=== PATIENT | female | born 1940 | race Caucasian/White ===

== ENCOUNTER → 2018-06-01 11:43 | Outpatient (CLI) | payer OTHER, MEDICAID, SELFPAY ==
[2018-06-01 14:03] LABS: Hemoglobin A1C 8.2 % (4.5-6.2)
== END ==
PROVIDERS: PCP Family Medicine; Visit Provider Family Medicine
DX: E11.9 Type 2 diabetes mellitus without complications (principal)
CPT/HCPCS: 36415; 83036

== ENCOUNTER 2018-07-28 14:50 | Emergency (ER) | payer OTHER, MEDICAID, SELFPAY ==
[2018-07-28 14:54] VITALS: BP 158/55; PULSE 70; RESP 16; TEMP 36.6; O2SAT 97
--- NOTE | 2018-07-28 15:08 | DI.CT_ITS ---
SYMPTOM/DIAGNOSIS: RUQ ABD PAIN, DIARRHEA ABDOMEN AND PELVIC CT: A noncontrast CT scan of the abdomen and pelvis was performed. Lack of IV contrast does limit evaluation of the abdominal and pelvic organs. FINDINGS: Loculated fluid collections are seen in the right hemithorax. There were discussed on the CT scan of the chest from the same day. The unenhanced liver, spleen, pancreas and adrenal glands are unremarkable. The patient is status post cholecystectomy. No biliary ductal dilatation is seen. The kidneys are unremarkable. No stones or obstruction is seen. The urinary bladder is intact. Note is made of a 2 cm. diverticulum arising from the right posterior lateral aspect of the urinary bladder. Calcified fibroids are seen in the uterus. The reproductive organs are otherwise unremarkable. The abdominal aorta is of normal caliber with atherosclerosis. No aneurysmal dilatation is seen. No significant abdominal or pelvic adenopathy, ascites or pneumoperitoneum is seen. Note is made of a fat containing right inguinal hernia. There is diverticulosis of the colon but no evidence of acute diverticulitis. No evidence of bowel obstruction or inflammation is present. There is a normal appendix present in the right lower quadrant. There is an intramedullary carmenza and screw transfixing an old left femoral fracture. The bones appear osteopenic. Degenerative changes are present throughout the spine. There is a left convex scoliosis of the spine present. There is a sclerotic focus in the left ilium. The finding was present on the xray of the pelvis from 2014 and appears stable. IMPRESSION: 1. Loculated pleural effusions in the right hemithorax. These are discussed in more detail on the CT scan of the chest from the same day. 2. No evidence of an acute abdominal or pelvic process. 3. Diverticulosis of the colon but no evidence of acute diverticulitis.
--- NOTE | 2018-07-28 15:10 | W.ED.GENAD ---
Discharge Plan Discharge Details Chief Complaint: Nausea/Vomit/Diar Primary Care Provider: Abhi Parks ED Provider: Ivan Lamas Home Meds and New Rx's Prescriptions: No Action acetaminophen 650 MG tablet 1 tab PO Q6H PRN RF: 0 pen needle, diabetic [BD Ultra-Fine Tiffany Pen Needle] 1 EACH needle 1 ea Miscellaneous DAILY Qty: 100 RF: 4 lancets [OneTouch Delica Lancets] 1 EACH misc 1 ea Miscellaneous QID Qty: 100 RF: 5 blood sugar diagnostic [OneTouch Ultra Test] 1 EACH strip 1 ea Miscellaneous QID Qty: 200 RF: 5 mirtazapine 30 MG tablet 30 mg PO DAILY Qty: 90 RF: 4 apixaban [Eliquis] 5 MG tablet 5 mg PO BID Qty: 60 RF: 11 cinacalcet [Sensipar] 30 MG tablet 30 mg PO DAILY Qty: 90 RF: 4 lithium carbonate 150 MG capsule 150 mg PO BID Qty: 180 RF: 3 insulin glargine [Lantus U-100 Insulin] 100 UNIT/1 ML solution 50 units Sub-Q DAILY Qty: 3 RF: 4 melatonin 3 MG tablet 2 tab PO HS RF: 0 polyethylene glycol 3350(bulk) 12,000 GM powder 17 gm PO DAILY PRNQty: 1200 RF: 3 levothyroxine 100 MCG tablet 100 mcg PO DAILY Qty: 90 RF: 3 insulin syringe-needle U-100 [BD Insulin Syringe] 1 EACH syringe 1 ea Miscellaneous TID Qty: 100 RF: 4 nystatin (bulk) 1 EACH powder Topical QID Qty: 60 RF: 2 Medical Decision Making 78-year-old female presents from home with her daughter and obcoyghm-lb-mys complaining of 3 weeks of diarrhea and associated general malaise and weakness. Denies antecedent use of antibiotics. She is afebrile with a blood pressure 158/55, normal oxygenation, speaking in full sentences and in no acute distress. Exam does reveal slight right upper quadrant tenderness on palpation. Diagnosis includes colitis, nonspecific diarrheal illness, dehydration or electrolyte abnormality. Patient had IV access established, given fluids parenterally and referred for laboratory testing as well as CT images given the tenderness on exam. Laboratory analysis reveals white blood cell count of 7, hematocrit 41, platelets 260. Chemistries notable for BUN 23, creatinine 1.3. Sodium is 138, potassium 4.4, chloride 106. Lipase 48, troponin is negative. BNP 491. Diagnostic imaging: CT scan of the abdomen does not reveal acute process. There is note of loculated effusion on the lower chest cuts of the abdominal CT. Patient was therefore referred for chest x-ray and subsequently CT scan of the chest. The chest images reveal multiple smooth right-sided pleural masslike collections. They raise a suspicion for underlying pleural masses. Discussed the findings with the patient, her daughter, her [id number], as well as Dr. Parks her primary care physician. She will be seen for follow-up in clinic to discuss further diagnostics and approach to workup. She is stable for discharge at this time HPI General Mode of arrival: ambulatory. Date/Time Provider Initiated Documentation: 07/28/18 14:51. Limitations to Documentation: no limitations. Information obtained by: patient and family. History of Present Illness 78 year old F presents to the emergency department with the chief complaint of Diarrhea, described as moderate, Patient started experiencing this week(s) No relieving factors improve symptom(s), No exacerbating factors reported . Patient notes no other symptoms.; denies fever/chills and nausea/vomiting. HPI Narrative: 78-year-old female presents with her daughter and qlumkukn-qu-fcc from home. She has had 3 weeks of near daily episodes of loose, watery stool. She has had poor p.o. intake, general malaise and a mild generalized weakness. She has not had syncope. She has not had vomiting. She denies fever. No changes to urine. Related Data Home Medications Medication Instructions Recorded Confirmed acetaminophen 1 tab PO Q6H PRN 10/19/15 12/22/17 pen needle, diabetic [Bd #100 ea 01/30/16 Ultra-Fine Pen Needle] lancets [Onetouch Delica] #100 ea 03/07/16 blood sugar diagnostic [Onetouch #200 strip 03/10/17 Ultra Test Strips] mirtazapine 30 mg PO DAILY #90 tab-cap 09/25/17 apixaban [Eliquis] 5 mg PO BID #60 tab 12/12/17 cinacalcet [Sensipar] 30 mg PO DAILY #90 tab-cap 01/05/18 lithium carbonate 150 mg PO BID #180 cap 01/13/18 insulin glargine [Lantus Vial] 50 units SUB-Q DAILY #3 vial 03/02/18 melatonin 2 tab PO HS 03/24/18 polyethylene glycol 3350(bulk) 17 gm PO DAILY PRN #1200 g 03/24/18 levothyroxine 100 mcg PO DAILY #90 tab-cap 05/20/18 insulin syringe-needle U-100 #100 syringe 06/17/18 [Insulin Syringe] nystatin (bulk) 0 TOPICAL QID #60 g 06/19/18 Previous Rx's Medication Instructions Recorded mirtazapine 30 mg PO DAILY #90 tab-cap 09/25/17 apixaban [Eliquis] 5 mg PO BID #60 tab 12/12/17 cinacalcet [Sensipar] 30 mg PO DAILY #90 tab-cap 01/05/18 lithium carbonate 150 mg PO BID #180 cap 01/13/18 insulin glargine [Lantus Vial] 50 units SUB-Q DAILY #3 vial 03/02/18 levothyroxine 100 mcg PO DAILY #90 tab-cap 05/20/18 insulin syringe-needle U-100 #100 syringe 06/17/18 [Insulin Syringe] Allergies Allergy/AdvReac Type Severity Reaction Status Date / Time ciprofloxacin AdvReac Intermediate Anorexia Unverified 06/02/18 09:59 fluoxetine AdvReac Intermediate Tremor, Unverified 06/02/18 09:59 weakness metformin AdvReac Unknown Diarrhea Unverified 06/02/18 09:59 General Stated Complaint: Nausea/Vomit/Diar TYLER: 3 Review of Systems Review of Systems Patient will note vague intermittent right chest discomfort/rib pain over days time. 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 Pleasant, well groomed, interactive. HEAD: Normocephalic, atraumatic ENT: Mucous membranes moist, oropharynx unremarkable, External ear exam unremarkable EYES: PERRL, EOMI NECK: Full ROM, no DIONI, no menigismus CHEST/RESP: Nontender, clear to auscultation bilateral, no wheeze/rhonchi/rales CARDIOVASCULAR: RRR, no murmur, rub reji. 2+ Rad pulse bilateral ABDOMEN: Soft, tender in the right upper quadrant without rebound or guarding, no mass. +Bowel sounds EXT: Full ROM, no edema, no rash Neuro: Grossly normal neurologic exam, conversant, interactive. Psych: Speech fluent, thoughts congruent, affect normal Course Vital Signs Temperature 36.6 C 07/28/18 14:54 Pulse 70 07/28/18 14:54 Respiratory Rate 16 07/28/18 14:54 Blood Pressure 158/55 H 07/28/18 14:54 Pulse Oximetry 97 07/28/18 14:54 Temperature 36.6 C 07/28/18 14:54 Temperature Source Temporal Artery Scan 07/28/18 14:54 Pulse 70 07/28/18 14:54 Respiratory Rate 16 07/28/18 14:54 Respiratory Effort 07/28/18 14:58 Blood Pressure 158/55 H 07/28/18 14:54 Blood Pressure Position Supine 07/28/18 14:54 Pulse Oximetry 97 07/28/18 14:54 Oxygen Delivery Method Room Air 07/28/18 14:54 Oxygen Flow Rate 0 07/28/18 14:54 Pain Level 0 07/28/18 14:54
--- NOTE | 2018-07-28 15:14 | ED.GENADUL_ITS ---
Discharge Plan Discharge Details Chief Complaint: Nausea/Vomit/Diar Primary Care Provider: Abhi Parks ED Provider: Ivan Lamas Home Meds and New Rx's Prescriptions: No Action acetaminophen 650 MG tablet 1 tab PO Q6H PRN RF: 0 pen needle, diabetic [BD Ultra-Fine Tiffany Pen Needle] 1 EACH needle 1 ea Miscellaneous DAILY Qty: 100 RF: 4 lancets [OneTouch Delica Lancets] 1 EACH misc 1 ea Miscellaneous QID Qty: 100 RF: 5 blood sugar diagnostic [OneTouch Ultra Test] 1 EACH strip 1 ea Miscellaneous QID Qty: 200 RF: 5 mirtazapine 30 MG tablet 30 mg PO DAILY Qty: 90 RF: 4 apixaban [Eliquis] 5 MG tablet 5 mg PO BID Qty: 60 RF: 11 cinacalcet [Sensipar] 30 MG tablet 30 mg PO DAILY Qty: 90 RF: 4 lithium carbonate 150 MG capsule 150 mg PO BID Qty: 180 RF: 3 insulin glargine [Lantus U-100 Insulin] 100 UNIT/1 ML solution 50 units Sub-Q DAILY Qty: 3 RF: 4 melatonin 3 MG tablet 2 tab PO HS RF: 0 polyethylene glycol 3350(bulk) 12,000 GM powder 17 gm PO DAILY PRNQty: 1200 RF: 3 levothyroxine 100 MCG tablet 100 mcg PO DAILY Qty: 90 RF: 3 insulin syringe-needle U-100 [BD Insulin Syringe] 1 EACH syringe 1 ea Miscellaneous TID Qty: 100 RF: 4 nystatin (bulk) 1 EACH powder Topical QID Qty: 60 RF: 2 Medical Decision Making 78-year-old female presents from home with her daughter and [id number]-[id number] complaining of 3 weeks of diarrhea and associated general malaise and weakness. Denies antecedent use of antibiotics. She is afebrile with a blood pressure 158/55, normal oxygenation, speaking in full sentences and in no acute distress. Exam does reveal slight right upper quadrant tenderness on palpation. Diagnosis includes colitis, nonspecific diarrheal illness, dehydration or electrolyte abnormality. Patient had IV access established, given fluids parenterally and referred for laboratory testing as well as CT images given the tenderness on exam. Laboratory analysis reveals white blood cell count of 7, hematocrit 41, platelets 260. Chemistries notable for BUN 23, creatinine 1.3. Sodium is 138, potassium 4.4, chloride 106. Lipase 48, troponin is negative. BNP 491. Diagnostic imaging: CT scan of the abdomen does not reveal acute process. There is note of loculated effusion on the lower chest cuts of the abdominal CT. Patient was therefore referred for chest x-ray and subsequently CT scan of the chest. The chest images reveal multiple smooth right-sided pleural masslike collections. They raise a suspicion for underlying pleural masses. Discussed the findings with the patient, her daughter, her [id number], as well as Dr. Parks her primary care physician. She will be seen for follow-up in clinic to discuss further diagnostics and approach to workup. She is stable for discharge at this time HPI General Mode of arrival: ambulatory . Date/Time Provider Initiated Documentation: 07/28/18 14:51 . Limitations to Documentation: no limitations . Information obtained by: patient and family . History of Present Illness 78 year old F presents to the emergency department with the chief complaint of Diarrhea, described as moderate, Patient started experiencing this week(s) No relieving factors improve symptom(s), No exacerbating factors reported . Patient notes no other symptoms.; denies fever/chills and nausea/vomiting. HPI Narrative: 78-year-old female presents with her daughter and daughter-in- law from home. She has had 3 weeks of near daily episodes of loose, watery stool. She has had poor p.o. intake, general malaise and a mild generalized weakness. She has not had syncope. She has not had vomiting. She denies fever. No changes to urine. Related Data Home Medications Medication Instructions Recorded Confirmed acetaminophen 1 tab PO Q6H PRN 10/19/15 12/22/17 pen needle, diabetic [Bd #100 ea 01/30/16 Ultra-Fine Pen Needle] lancets [Onetouch Delica] #100 ea 03/07/16 blood sugar diagnostic [Onetouch #200 strip 03/10/17 Ultra Test Strips] mirtazapine 30 mg PO DAILY #90 tab-cap 09/25/17 apixaban [Eliquis] 5 mg PO BID #60 tab 12/12/17 cinacalcet [Sensipar] 30 mg PO DAILY #90 tab-cap 01/05/18 lithium carbonate 150 mg PO BID #180 cap 01/13/18 insulin glargine [Lantus Vial] 50 units SUB-Q DAILY #3 vial 03/02/18 melatonin 2 tab PO HS 03/24/18 polyethylene glycol 3350(bulk) 17 gm PO DAILY PRN #1200 g 03/24/18 levothyroxine 100 mcg PO DAILY #90 tab-cap 05/20/18 insulin syringe-needle U-100 #100 syringe 06/17/18 [Insulin Syringe] nystatin (bulk) 0 TOPICAL QID #60 g 06/19/18 Previous Rx's Medication Instructions Recorded mirtazapine 30 mg PO DAILY #90 tab-cap 09/25/17 apixaban [Eliquis] 5 mg PO BID #60 tab 12/12/17 cinacalcet [Sensipar] 30 mg PO DAILY #90 tab-cap 01/05/18 lithium carbonate 150 mg PO BID #180 cap 01/13/18 insulin glargine [Lantus Vial] 50 units SUB-Q DAILY #3 vial 03/02/18 levothyroxine 100 mcg PO DAILY #90 tab-cap 05/20/18 insulin syringe-needle U-100 #100 syringe 06/17/18 [Insulin Syringe] Allergies Allergy/AdvReac Type Severity Reaction Status Date / Time ciprofloxacin AdvReac Intermediate Anorexia Unverified 06/02/18 09:59 fluoxetine AdvReac Intermediate Tremor, Unverified 06/02/18 09:59 weakness metformin AdvReac Unknown Diarrhea Unverified 06/02/18 09:59 General Stated Complaint: Nausea/Vomit/Diar TYLER: 3 Review of Systems Review of Systems Patient will note vague intermittent right chest discomfort/rib pain over days time. 8 out of 10 systems reviewed and otherwise negative [facility] Social History Smoking/Tobacco Use Status: Never Surgical History Amputation (01/08/11) Biopsy of breast Cholecystectomy Correction, Hammertoe (04/20/03) Debridement Ulcer (08/27/00) Debridement Ulcer (04/06/12) Debridement Ulcer (04/09/12) Fracture, Open Treatment Incision & Drainage, Abscess or Hematoma (03/16/04) Lobectomy Parathyroidectomy Exam Narrative Exam Narrative: GEN: awake, alert, oriented 3. Pleasant, well groomed, interactive. HEAD: Normocephalic, atraumatic ENT: Mucous membranes moist, oropharynx unremarkable, External ear exam unremarkable EYES: PERRL, EOMI NECK: Full ROM, no DIONI, no menigismus CHEST/RESP: Nontender, clear to auscultation bilateral, no wheeze/rhonchi/rales CARDIOVASCULAR: RRR, no murmur, rub reji. 2+ Rad pulse bilateral ABDOMEN: Soft, tender in the right upper quadrant without rebound or guarding, no mass. +Bowel sounds EXT: Full ROM, no edema, no rash Neuro: Grossly normal neurologic exam, conversant, interactive. Psych: Speech fluent, thoughts congruent, affect normal Course Vital Signs Temperature 36.6 C 07/28/18 14:54 Pulse 70 07/28/18 14:54 Respiratory Rate 16 07/28/18 14:54 Blood Pressure 158/55 H 07/28/18 14:54 Pulse Oximetry 97 07/28/18 14:54 Temperature 36.6 C 07/28/18 14:54 Temperature Source Temporal Artery Scan 07/28/18 14:54 Pulse 70 07/28/18 14:54 Respiratory Rate 16 07/28/18 14:54 Respiratory Effort 07/28/18 14:58 Blood Pressure 158/55 H 07/28/18 14:54 Blood Pressure Position Supine 07/28/18 14:54 Pulse Oximetry 97 07/28/18 14:54 Oxygen Delivery Method Room Air 07/28/18 14:54 Oxygen Flow Rate 0 07/28/18 14:54 Pain Level 0 07/28/18 14:54
[2018-07-28 15:23] LABS: Abs Immature Grans 0.04 k/cumm (0.0-0.09); Absolute Basophil Count 0.03 k/cumm (0.0-0.2); Absolute Eosinophil Count 0.13 k/cumm (0.0-0.7); Absolute Lymphocyte Count 1.14 k/cumm (1.2-3.4); Absolute Monocyte Count 0.99 k/cumm (0.11-0.7); Absolute Neutrophil Count 4.97 k/cumm (1.2-6.7); Basophils % 0.4; Eosinophils % 1.8; HCT 41.3 % (36.0-46.0); HGB 12.4 g/dL (12.0-15.5); Immature Grans % 0.5; Lymphocytes % 15.6; Mean Corpuscular Hemoglobin 30.7 pg (27.0-33.0); Mean Corpuscular Volume 102.2 fL (80-95); Mean Platelet Volume 9.3 fL (8.0-11.0); Monocytes % 13.6; Neutrophils % 68.1; Platelet Count 260 x1000/uL (130-400); RBC 4.04 m/cumm (4.00-5.20); RBC Distribution Width 13.8 % (11.7-14.6)
[2018-07-28 15:38] LABS: ALT 24 U/L (12-78); AST 20 U/L (15-37); Albumin 2.7 g/dL (3.4-5.0); Alkaline Phosphatase 139 U/L (46-116); Anion Gap 6.7 mmol/L (3-11); BUN 23 mg/dL (7-18); Bilirubin, Total 0.7 mg/dL (0.2-1.0); CO2 25.3 mmol/L (21.0-32.0); CREATININE 1.36 mg/dL (0.55-1.02); Calcium 9.8 mg/dL (8.5-10.1); Chloride 106 mmol/L (98-107); Estimated GFR 37.51 (mL/min/1.73m2); Glucose 204 mg/dL (70-100); Lipase 48 U/L (73-393); Potassium 4.4 mmol/L (3.5-5.1); Sodium 138 mmol/L (136-145); Total Protein 7.5 g/dL (6.4-8.2)
--- NOTE | 2018-07-28 16:30 | DI.RAD_ITS ---
SYMPTOMS/DIAGNOSIS: DIARRHEA, WEAKNESS, ABNORMAL LUNGS ON ABDOMINAL CT CHEST X-RAY, FRONTAL AND LATERAL VIEWS: Comparison is 08/30/15. There is an opacity seen in the medial aspect of the right upper lobe not present on the prior examination. There also appears to be a moderate-sized right pleural effusion. The left lung is clear and well expanded. No pneumothorax is seen. The heart size and pulmonary vasculature are within normal limits. Surgical clips are again seen in the left axilla and the upper abdomen. IMPRESSION: 1. Moderate-sized right pleural effusion. 2. Opacity in the medial aspect of the right upper lobe. Differential considerations include atelectasis, pneumonia or mass. Please refer to the CT scan of the chest for further evaluation.
--- NOTE | 2018-07-28 16:45 | DI.VRAD_ITS ---
EXAM: CT Abdomen and Pelvis Without Intravenous Contrast EXAM DATE/TIME: 07/28/2018 3:55 PM CLINICAL HISTORY: 78 years old, female; Signs and symptoms; Other: Diarrhea for 3 weeks TECHNIQUE: Axial computed tomography images of the abdomen and pelvis without intravenous contrast. Coronal and sagittal reformatted images were created and reviewed. COMPARISON: CR LEFT HIP COMPLETE \T\ AP PELVIS 08/30/2015 7:17 AM FINDINGS: Lower thorax: Loculated right pleural effusion. Minimal dependent changes within the lung bases. Trace pericardial effusion. Coronary atherosclerosis. ABDOMEN: Liver: Normal. No mass. Gallbladder and bile ducts: Status post cholecystectomy. Pancreas: Normal. No ductal dilation. Spleen: Normal. No splenomegaly. Adrenals: Normal. No mass. Kidneys and ureters: Normal. No hydronephrosis. Stomach and bowel: Mild diverticulosis of the distal descending and sigmoid colon. No diverticulitis. No definite evidence of colitis. Appendix: No evidence of appendicitis. PELVIS: Bladder: Right sided urinary bladder wall diverticulum measuring 20 mm. Reproductive: Calcified uterine fibroids. ABDOMEN and PELVIS: Intraperitoneal space: Normal. No free air. No significant fluid collection. Bones/joints: Old healed internally fixed fracture deformity of the left proximal femur. Degenerative spondylosis throughout the lumbar spine with moderate scoliosis. Sclerotic lesion within the left ilium (axial images 66-68) likely benign and likely unchanged compared to a prior pelvis radiograph performed on 08/30/2015. Soft tissues: Unremarkable. Vasculature: Severe atherosclerosis of the abdominal aorta and iliac arteries. Lymph nodes: Normal. No enlarged lymph nodes. Other findings: Limited examination given the lack of oral and IV contrast. IMPRESSION: 1. Loculated right pleural effusion. 2. Mild colonic diverticulosis. 3. No acute abdominal or pelvic process. Dictated and Authenticated by: Hussain Alston MD. Ordering:ROSITA HERRERA MD
--- NOTE | 2018-07-28 16:51 | DI.VRAD_ITS ---
EXAM: XR Chest, 2 Views EXAM DATE/TIME: 07/28/2018 4:18 PM CLINICAL HISTORY: 78 years old, female; Signs and symptoms; Other: Diarrhea weaknes, abnl lungs o TECHNIQUE: XR of the chest, 2 views. COMPARISON: CR CHEST ONE VIEW IN RAD DEPT 08/30/2015 7:44 AM FINDINGS: Lungs: Mild patchy density in the central right upper lobe. This is new compared to the prior examination. Differential diagnosis includes atelectasis versus pneumonia. An underlying pulmonary mass is not excluded. Either short term followup chest radiograph following appropriate medical management or further assessment with CT scan of the chest is recommended. The left lung is clear. Pleural space: Moderate size right pleural effusion. Heart/Mediastinum: Unremarkable. No cardiomegaly. Bones/joints: Unremarkable for patient's age. Soft tissues: There were surgical clips within the left axilla. IMPRESSION: Right pleural effusion and new central right upper lobe patchy density. Differential diagnosis includes atelectasis versus pneumonia. An underlying pulmonary mass or is not excluded. Either short term followup chest radiograph following appropriate medical management or further assessment with CT scan of the chest is recommended. Dictated and Authenticated by: Hussain Alston MD. Ordering:ROSITA HERRERA MD
--- NOTE | 2018-07-28 16:59 | DI.CT_ITS ---
SYMPTOM/DIAGNOSIS: RT LOCULATED EFFUSION, DENSITY, DIARRHEA, MALAISE CHEST CT: A noncontrast CT scan of the chest was performed. Comparison is made with 04/15. The thoracic aorta shows atherosclerosis. No aneurysmal dilatation is present. Heart size is within normal limits. There does appear to be a trace pericardial effusion. Coronary artery calcifications are present. No significant adenopathy is seen in the mediastinum. There is a soft tissue mass in the anterior mediastinum measuring 4 cm. transverse by 2.8 cm. AP by 4.8 cm. craniocaudad. There is a right pleural effusion. There are areas of loculation along the hayward of the right hemithorax. These appear to be of low attenuation suggesting fluid and may represent loculated collections. Several of these areas however do show somewhat increased density suggesting a soft tissue component and pleural based masses cannot be excluded. There is no left pleural effusion. No pneumothorax is identified. There are bilateral non-calcified pulmonary nodules present in both lobes, the largest measures approximately 5 mm. The tracheobronchial tree is unremarkable. The upper abdominal images show the patient is status post cholecystectomy. Moderate degenerative changes are seen throughout the spine. IMPRESSION: 1. Noncontrast CT scan of the chest which does limit evaluation. 2. Pleural based collections in the right hemithorax. They appear to have both solid and fluid attenuations and pleural based masses cannot be excluded. A CT scan with contrast should be considered for further evaluation. 3. Bilateral pulmonary nodules. Follow up should be considered based on patient's risk factors. 4. Anterior mediastinal mass. Post contrast CT scan of the chest is recommended.
[2018-07-28 17:04] VITALS: BP 158/60; PULSE 59; RESP 17; TEMP 37.4; O2SAT 92
[2018-07-28 17:22] LABS: NT-proBNP 491 pg/mL
[2018-07-28 17:23] LABS: Troponin I < 0.02 ng/mL (0.00-0.06)
--- NOTE | 2018-07-28 17:46 | DI.VRAD_ITS ---
EXAM: CT Chest Without Intravenous Contrast EXAM DATE/TIME: 07/28/2018 5:00 PM CLINICAL HISTORY: 78 years old, female; Signs and symptoms; Other: R loculated effusion, density. TECHNIQUE: Axial computed tomography images of the chest without intravenous contrast. Coronal and sagittal reformatted images were created and reviewed. COMPARISON: CT CHEST FOR PULMONARY EMBOLUS 04/15/2012 5:07 PM FINDINGS: Limitations: The examination is limited given the lack of IV contrast. Lungs: There are dependent changes within the lung bases. No pulmonary consolidation. There are three sub-5 mm diameter nodules within the right upper lobe (axial images 17, 21 and 26) and one within the left upper lobe (axial image 25). Pleural space: There are multiple smooth right pleural mass-like collections, many of which have water density measurements. There are areas of increased attenuation within some of these pleural collections, raising the suspicion for underlying pleural masses. Evaluation with contrast-enhanced CT scan is suggested. No pleural calcification is identified. No left pleural effusion. Heart: Trace pericardial effusion. Coronary atherosclerosis. Aorta: Atherosclerosis of the thoracic aorta. No aneurysm. Lymph nodes: Unremarkable. No enlarged lymph nodes. Bones/joints: Unremarkable. No acute fracture. Soft tissues: Unremarkable. IMPRESSION: 1. Loculated right pleural effusion with findings suspicious for right pleural masses. Further assessment with contrast-enhanced CT scan of the chest is suggested. 2. Bilateral pulmonary nodules measuring under 5 mm in diameter. For low-risk patients, no follow-up is necessary. For high-risk patients (smoking history or other known risk factors) an optional chest CT at 12 months could be performed. Dictated and Authenticated by: Hussain Alston MD. Ordering:ROSITA HERRERA MD
== END 2018-07-28 18:18 | disposition home or self-care (01) ==
PROVIDERS: Emergency Provider Emergency Medicine; PCP Family Medicine
DX: R19.7 Diarrhea, unspecified (principal); R53.81 Other malaise; R91.8 Other nonspecific abnormal finding of lung field; R07.81 Pleurodynia; E11.9 Type 2 diabetes mellitus without complications; Z79.4 Long term (current) use of insulin
CPT/HCPCS: 36415; 71250; 80053; 83690; 87505; 99284; 71046; 74176; 83880; 84484; 85025

== ENCOUNTER 2018-08-04 17:25 | Inpatient (IN) | payer OTHER, MEDICAID, SELFPAY ==
[2018-08-04] VITALS (26 sets, daily range): BP systolic 141–182; BP diastolic 58–114; PULSE 69–88; RESP 18–32; TEMP 36.5–37.1; O2SAT 91–98
--- NOTE | 2018-08-04 17:26 | DI.RAD_ITS ---
SYMPTOMS/DIAGNOSIS: FATIGUE CHEST X-RAY, FRONTAL AND LATERAL VIEWS: Comparison is 07/28/18. The heart size is stable and within normal limits. There is atherosclerosis of the thoracic aorta. There is blunting of the costophrenic angles bilaterally consistent with small pleural effusions. There are again seen opacities in the right hemithorax, one in the right suprahilar region and one in the right lung base. Previous CT scan showed loculated pleural effusions versus pleural masses in these regions. The left lung appears seen. Degenerative changes are seen in the spine. Surgical clips are seen in the left axilla. IMPRESSION: Bilateral pleural effusions with loculated pleural effusions versus masses in the right hemithorax. These were present on the CT scan from 07/28/18 and are grossly unchanged in size. Continued followup is recommended.
--- NOTE | 2018-08-04 17:28 | DI.CT_ITS ---
SYMPTOMS/DIAGNOSIS: CONFUSION, LETHARGY CT BRAIN: Noncontrast examination was performed. Comparison is 07/17/14. The study is degraded due to patient motion artifact. There is cerebral atrophy and small vessel ischemic disease consistent with the patient's age. No evidence of acute infarct, hemorrhage, midline shift or mass effect is identified. The ventricles are intact. The basilar cisterns are patent. The visualized paranasal sinuses are clear. The mastoid air cells are well pneumatized. The calvarium is intact. IMPRESSION: 1. Image degradation due to patient motion artifact. 2. No definite acute intracranial process.
--- NOTE | 2018-08-04 17:30 | W.ED.GENAD ---
Discharge Plan Disposition Patient Disposition: [facility] INPATIENT Condition: Stable Discharge Details Chief Complaint: GenMedical Clinical Impression: Acute UTI, Diarrhea, Activity of daily living alteration, Acute dehydration Reason For Visit: doris Primary Care Provider: Abhi Parks ED Provider: Michael Page Home Meds and New Rx's Prescriptions: No Action trazodone 50 mg tablet 100 mg PO DAILY RF: 0 acetaminophen 650 MG tablet 1 tab PO Q6H PRN RF: 0 pen needle, diabetic [BD Ultra-Fine Tiffany Pen Needle] 1 EACH needle 1 ea Miscellaneous DAILY Qty: 100 RF: 4 lancets [OneTouch Delica Lancets] 1 EACH misc 1 ea Miscellaneous QID Qty: 100 RF: 5 blood sugar diagnostic [[place] InteractiveTouch Ultra Test] 1 EACH strip 1 ea Miscellaneous QID Qty: 200 RF: 5 mirtazapine 30 MG tablet 30 mg PO DAILY Qty: 90 RF: 4 apixaban [Eliquis] 5 MG tablet 5 mg PO BID Qty: 60 RF: 11 cinacalcet [Sensipar] 30 MG tablet 30 mg PO DAILY Qty: 90 RF: 4 lithium carbonate 150 MG capsule 150 mg PO BID Qty: 180 RF: 3 insulin glargine [Lantus U-100 Insulin] 100 UNIT/1 ML solution 50 units Sub-Q DAILY Qty: 3 RF: 4 polyethylene glycol 3350(bulk) 12,000 GM powder 17 gm PO DAILY PRNQty: 1200 RF: 3 levothyroxine 100 MCG tablet 100 mcg PO DAILY Qty: 90 RF: 3 insulin syringe-needle U-100 [BD Insulin Syringe] 1 EACH syringe 1 ea Miscellaneous TID Qty: 100 RF: 4 Medical Decision Making This is a 78-year-old female past medical history of lithium use, Eliquis use, diabetes who presents today for weakness, urinary incontinence, diarrhea with stool incontinence, inability to perform her ADLs, and failure of outpatient management for her diarrhea. She has not been on any antibiotics recently. She was recently seen here and assessed with a CT scan, and laboratory workup which was benign. She has had no improvement since then has had a notable decline in her function and capabilities. Physical exam demonstrates a female covered in feces, notable incontinence, no signs of significant trauma. Bedside Hemoccult was negative. CT scan of the head was negative for any acute process. Laboratory workup demonstrates no elevated WBC count, normal platelets, mild macrocytic anemia, VBG demonstrates no significant CO2 retention normal pH. Electrolytes are within normal limits, renal function is slightly elevated with a creatinine of 1.43, CK is 14. Troponin is 0.04. TSH is normal. Urinalysis does show evidence of urinary tract infection with small leukoesterase, large RBCs and WBCs, nitrite negative. Rare epithelial cells and moderate bacteriuria. We will start her on Rocephin for this. Her lithium levels are slightly supratherapeutic. Patient was rehydrated. We will get a C. difficile, stool culture, and shigga toxin B PCR. Because of the patient's notable decline in her function, inability to perform her ADLs, urinary tract infection, stool incontinence, I feel she would benefit from inpatient admission, potential placement, and further management of her chronic medical problems which are currently not well controlled secondary to patient noncompliance. I discussed the case with Dr. Gann, he agrees with the assessment and plan. I have extensively reviewed the treatment plan with the patient. I have addressed all patient concerns at this time. I have also discussed the plan with the admitting physician and they agree with the current assessment and plan and have agreed to assume responsibility for the patient. All parties demonstrate verbal understanding and agreement with our assessment and plan at this time. CT scan per virtual radiology no acute focal intracranial lesions. Changes of cerebral and cerebellar atrophy. EKG 17: 35 Rate 89, OK 166, QTc 494, QRS 140, right bundle branch block, negative for Scarbossa criterion. No significant ST elevations or depressions, inverted T waves in V1, V2, and V3. No Q waves. HPI General Date/Time Provider Initiated Documentation: 08/04/18 17:26. HPI Narrative: This is a 78-year-old female with a past medical history of diabetes mellitus, diarrhea, hypothyroidism, lithium use, and Eliquis use for cardiac murmur, who was recently here and assessed in the emergency department 1-2 weeks ago for diarrhea a negative imaging and workup at that time. She presents today per EMS stating that since she was discharged she has had increasing weakness, decrease in her appetite, regular diarrhea, repetitive incontinence of urine and stool, who is been lying in bed, not getting up, not being able to feed herself well. She has not been on any antibiotics prior to her initial visit or since then. Family denies any fever, or chills. They deny any cough. They state that she has been getting her medications. He denies any other sick contacts. They deny any falls. The patient is a poor historian and has no complaints at this time. Family has no other complaints at this time. Past surgical history is positive for breast biopsy, parathyroidectomy. She denies any IV or illicit drug use. Related Data Home Medications Medication Instructions Recorded Confirmed acetaminophen 1 tab PO Q6H PRN 10/19/15 07/31/18 pen needle, diabetic [BD #100 ea 01/30/16 07/31/18 Ultra-Fine Tiffany Pen Needle] lancets [[place] InteractiveTouch Delica Lancets] #100 ea 03/07/16 07/31/18 blood sugar diagnostic [OneTouch #200 strip 03/10/17 07/31/18 Ultra Test] mirtazapine 30 mg PO DAILY #90 tab-cap 09/25/17 07/31/18 apixaban [Eliquis] 5 mg PO BID #60 tab 12/12/17 07/31/18 cinacalcet [Sensipar] 30 mg PO DAILY #90 tab-cap 01/05/18 07/31/18 lithium carbonate 150 mg PO BID #180 cap 01/13/18 07/31/18 insulin glargine [Lantus U-100 50 units SUB-Q DAILY #3 vial 03/02/18 07/31/18 Insulin] polyethylene glycol 3350(bulk) 17 gm PO DAILY PRN #1200 g 03/24/18 07/31/18 levothyroxine 100 mcg PO DAILY #90 tab-cap 05/20/18 07/31/18 insulin syringe-needle U-100 [BD #100 syringe 06/17/18 07/31/18 Insulin Syringe] trazodone 50 mg tablet 100 mg PO DAILY tab 07/31/18 07/31/18 Previous Rx's Medication Instructions Recorded mirtazapine 30 mg PO DAILY #90 tab-cap 09/25/17 apixaban [Eliquis] 5 mg PO BID #60 tab 12/12/17 cinacalcet [Sensipar] 30 mg PO DAILY #90 tab-cap 01/05/18 lithium carbonate 150 mg PO BID #180 cap 01/13/18 insulin glargine [Lantus U-100 50 units SUB-Q DAILY #3 vial 03/02/18 Insulin] levothyroxine 100 mcg PO DAILY #90 tab-cap 05/20/18 insulin syringe-needle U-100 [BD #100 syringe 06/17/18 Insulin Syringe] Allergies Allergy/AdvReac Type Severity Reaction Status Date / Time ciprofloxacin AdvReac Intermediate Anorexia Unverified 08/04/18 19:11 fluoxetine AdvReac Intermediate Tremor, Unverified 08/04/18 19:11 weakness metformin AdvReac Unknown Diarrhea Unverified 08/04/18 19:11 General TYLER: 3 Review of Systems Review of Systems All systems reviewed & are unremarkable except as noted in HPI and below PFSH Social History Smoking/Tobacco Use Status: Never Surgical History Amputation (01/08/11) Biopsy of breast Cholecystectomy Correction, Hammertoe (04/20/03) Debridement Ulcer (08/27/00) Debridement Ulcer (04/06/12) Debridement Ulcer (04/09/12) Fracture, Open Treatment Incision & Drainage, Abscess or Hematoma (03/16/04) Lobectomy Parathyroidectomy Exam Narrative Exam Narrative: 1.Const: Elderly, minimally cachectic, covered in feces 2.Eyes: PERRL, no conjunctival injection, and symmetrical lids. 3.ENT: Atraumatic external nose and ears. Notably dry MM. Neck: Symmetric, trachea midline, No thyromegaly. 4.CVS: +S1/S2 gallops. Peripheral pulses 2+ and equal in all extremities. Brisk capillary refill in all extremities. Radial pulses +2 bilaterally dorsalis pedis +2 bilaterally. 5.RESP: Unlabored respiratory effort. Minimal crackles and decreased breath throughout. 6.GI: Soft, Nontender/Nondistended, No hepatosplenomegaly. No guarding or rebound. No abdominal tenderness complaint or tenderness on exam. Rectal exam demonstrates no evidence of pressure ulcer or decubitus ulcer. Normal female genitalia. 7.MSK: Normocephalic/Atraumatic, Extremities w/o deformity or ttp No cyanosis or clubbing, Normal movement of all extremities. 8.Skin: Warm, Dry. No rashes or lesions. 9.Neuro: plate sensitizer II-XII grossly intact. Sensation grossly intact, no focal neurologic deficits.
[2018-08-04 17:51] LABS: BE (Venous) -3.3 mmol/L (-3-3); HCO3 (Venous) 22 mmol/L (22-28); O2 Sat (Venous) 85 % (70-80); TCO2 (Venous) 20 mmol/L (22-29); pCO2 (Venous) 38 mm/Hg (34-47); pH (Venous) 7.37 (7.32-7.43); pO2 (Venous) 50 mm/Hg (28-44)
[2018-08-04 18:04] LABS: Ammonia 26 umol/L (11-32)
[2018-08-04 18:10] LABS: PTT Activated 28.5 sec (21.0-31.4)
[2018-08-04 18:13] LABS: INR 1.3 (1.0-3.5)
[2018-08-04 18:18] LABS: ALT 41 U/L (12-78); AST 36 U/L (15-37); Alkaline Phosphatase 182 U/L (46-116); Anion Gap 10.2 mmol/L (3-11); BUN 32 mg/dL (7-18); Bilirubin, Total 0.8 mg/dL (0.2-1.0); CO2 22.8 mmol/L (21.0-32.0); CREATININE 1.43 mg/dL (0.55-1.02); Calcium 10.1 mg/dL (8.5-10.1); Chloride 108 mmol/L (98-107); Creatine Kinase 14 U/L (26-192); Glucose 196 mg/dL (70-100); Potassium 4.6 mmol/L (3.5-5.1); Sodium 141 mmol/L (136-145); TSH 1.03 uIU/mL (0.358-3.74); Troponin I 0.04 ng/mL (0.00-0.06)
[2018-08-04 18:47] LABS: Bilirubin Small (Negative); Blood Moderate (Negative); Clarity Cloudy; Glucose Negative (Negative); Ketones 15 mg/dL (Negative); Leukocyte Esterase Small (Negative); Nitrite Negative (Negative)
[2018-08-04 18:54] LABS: Lithium 1.76 mmol/L (0.60-1.20)
[2018-08-04 19:11] LABS: Bacteria Moderate HPF (Negative); C & S Indicated? Yes; Casts Negative LPF (Negative); Crystals Negative HPF (Negative); Epithelial Cells Rare HPF (Negative); Mucus Moderate (Negative); Other Cells Negative (Negative); RBC >50 (0-2); WBC >50 HPF (0-5)
[2018-08-04 19:41] LABS: Abs Immature Grans 0.08 k/cumm (0.0-0.09); Absolute Basophil Count 0.02 k/cumm (0.0-0.2); Absolute Eosinophil Count 0.03 k/cumm (0.0-0.7); Absolute Lymphocyte Count 0.88 k/cumm (1.2-3.4); Absolute Monocyte Count 1.12 k/cumm (0.11-0.7); Absolute Neutrophil Count 8.25 k/cumm (1.2-6.7); Basophils % 0.2; Eosinophils % 0.3; HCT 37.7 % (36.0-46.0); HGB 11.3 g/dL (12.0-15.5); Immature Grans % 0.8; Lymphocytes % 8.5; Mean Corpuscular Hemoglobin 30.4 pg (27.0-33.0); Mean Corpuscular Volume 101.3 fL (80-95); Mean Platelet Volume 10.2 fL (8.0-11.0); Monocytes % 10.8; Neutrophils % 79.4; Platelet Count 239 x1000/uL (130-400); RBC 3.72 m/cumm (4.00-5.20); White Blood Cell Count 10.38 k/cumm (4.4-10.8)
--- NOTE | 2018-08-04 20:05 | HPE_ITS ---
Date of service: 08/04/18 Time of Service: 20:03 Assessment and Plan (1) UTI (urinary tract infection): Current visit: Yes Status: Acute UTI with dehydration. All occurring in the setting of an ongoing diarrheal illness. Will begin empiric antibiotics, along with IV fluid, and await stool studies. As to the diabetes will follow along on sliding scale coverage. There is additionally the issue of pleural effusion and underlying mass lesion. This is not in any obvious way related to the current symptom but will call for workup as we go forward. History of Present Illness Chief Complaint: Weakness and diarrhea Narrative: Patient is a 78-year-old female with multiple medical problems. She comes to the emergency room tonight with approximately 1 month of diarrhea along with several days of lethargy. Initial evaluation of note for obvious along with pyuria patient was admitted for further evaluation and management. Note that the bulk of this history was obtained from the patient's daughter, patient able to provide only very limited input. Past medical history: Diabetes, bipolar, hypothyroid, hypertension, hyperparathyroidism, left femur fracture. Allergies to Cipro, Prozac and Metformin. Medications Eliquis 5 twice daily Sensipar 30 daily Lantus 50 units daily Synthroid 100 mcg daily lithium 150 twice daily Remeron 30 daily Review of Systems Review of Systems All systems reviewed & are unremarkable except as noted in HPI and below PFSH Social History Smoking/Tobacco Use Status: Never Surgical History Amputation (01/08/11) Biopsy of breast Cholecystectomy Correction, Hammertoe (04/20/03) Debridement Ulcer (08/27/00) Debridement Ulcer (04/06/12) Debridement Ulcer (04/09/12) Fracture, Open Treatment Incision & Drainage, Abscess or Hematoma (03/16/04) Lobectomy Parathyroidectomy Meds Home Medications Medication Instructions Recorded Confirmed Type acetaminophen 1 tab PO Q6H PRN 10/19/15 07/31/18 History pen needle, diabetic [BD #100 ea 01/30/16 07/31/18 History Ultra-Fine Tiffany Pen Needle] lancets [OneTouch Delica Lancets] #100 ea 03/07/16 07/31/18 History blood sugar diagnostic [OneTouch #200 strip 03/10/17 07/31/18 History Ultra Test] mirtazapine 30 mg PO DAILY #90 tab-cap 09/25/17 07/31/18 Rx apixaban [Eliquis] 5 mg PO BID #60 tab 12/12/17 07/31/18 Rx cinacalcet [Sensipar] 30 mg PO DAILY #90 tab-cap 01/05/18 07/31/18 Rx lithium carbonate 150 mg PO BID #180 cap 01/13/18 07/31/18 Rx insulin glargine [Lantus U-100 50 units SUB-Q DAILY #3 vial 03/02/18 07/31/18 Rx Insulin] polyethylene glycol 3350(bulk) 17 gm PO DAILY PRN #1200 g 03/24/18 07/31/18 History levothyroxine 100 mcg PO DAILY #90 tab-cap 05/20/18 07/31/18 Rx insulin syringe-needle U-100 [BD #100 syringe 06/17/18 07/31/18 Rx Insulin Syringe] trazodone 50 mg tablet 100 mg PO DAILY tab 07/31/18 07/31/18 History Allergies Allergy/AdvReac Type Severity Reaction Status Date / Time ciprofloxacin AdvReac Intermediate Anorexia Unverified 08/04/18 19:11 fluoxetine AdvReac Intermediate Tremor, Unverified 08/04/18 19:11 weakness metformin AdvReac Unknown Diarrhea Unverified 08/04/18 19:11 Exam Narrative Exam Narrative: Blood pressure 167/68, pulse 83 temp 36.5. HEENT of note for grossly dry oral mucosa. Neck is supple lungs show diminished breath sounds and dullness in the right base heart is regular rate and rhythm. Abdomen is soft and nontender. Pelvic and rectal exams are deferred. Extremities without edema, there are multiple toe amputations. Neurological patient is awake, she answers some questions, some she does not, she knows she is in the hospital but thinks it is [place]. She knows the president is Jb. Results Labs : 08/04/18 17:45 08/04/18 17:45 Laboratory Results - last 24 hr 08/04/18 08/04/18 08/04/18 17:45 17:45 17:45 WBC RBC Hgb Hct MCV MCH MCHC RDW Plt Count MPV Immature Gran % Neutrophils % Lymphocytes % Monocytes % Eosinophils % Basophils % Absolute Neutrophils Absolute Lymphocytes Absolute Monocytes Absolute Eosinophils Absolute Basophils PT INR APTT VBG pH VBG pCO2 VBG pO2 VBG HCO3 VBG Total CO2 VBG O2 Saturation VBG Base Excess Sodium 141 Potassium 4.6 Chloride 108 H Carbon Dioxide 22.8 Anion Gap 10.2 BUN 32 H Creatinine 1.43 H Estimated GFR/1.73 m2 35.40 Glucose 196 H Calcium 10.1 Total Bilirubin 0.8 AST 36 ALT 41 Alkaline Phosphatase 182 H Ammonia 26 Creatine Kinase 14 L Troponin I 0.04 Total Protein 7.0 Albumin 2.0 L TSH 1.03 Urine Color Urine Clarity Urine pH Ur Specific [place] Urine Protein Urine Ketones Urine Blood Urine Nitrite Urine Bilirubin Urine Urobilinogen Ur Leukocyte Esterase Urine RBC Urine WBC Ur Epithelial Cells Urine Crystals Urine Bacteria Urine Casts Urine Mucus Urine Other Ur Culture Indicated? Urine Glucose [place] 1.76 H 08/04/18 08/04/18 08/04/18 17:45 17:45 17:45 WBC 10.38 RBC 3.72 L Hgb 11.3 L Hct 37.7 MCV 101.3 H MCH 30.4 MCHC 30.0 L RDW 14.0 Plt Count 239 MPV 10.2 Immature Gran % 0.8 Neutrophils % 79.4 Lymphocytes % 8.5 Monocytes % 10.8 Eosinophils % 0.3 Basophils % 0.2 Absolute Neutrophils 8.25 H Absolute Lymphocytes 0.88 L Absolute Monocytes 1.12 H Absolute Eosinophils 0.03 Absolute Basophils 0.02 PT 13.0 H INR 1.3 APTT 28.5 VBG pH 7.37 VBG pCO2 38 VBG pO2 50 H VBG HCO3 22 VBG Total CO2 20 L VBG O2 Saturation 85 H VBG Base Excess -3.3 L Sodium Potassium Chloride Carbon Dioxide Anion Gap BUN Creatinine Estimated GFR/1.73 m2 Glucose Calcium Total Bilirubin AST ALT Alkaline Phosphatase Ammonia Creatine Kinase Troponin I Total Protein Albumin TSH Urine Color Urine Clarity Urine pH Ur Specific [place] Urine Protein Urine Ketones Urine Blood Urine Nitrite Urine Bilirubin Urine Urobilinogen Ur Leukocyte Esterase Urine RBC Urine WBC Ur Epithelial Cells Urine Crystals Urine Bacteria Urine Casts Urine Mucus Urine Other Ur Culture Indicated? Urine Glucose [place] 08/04/18 18:30 WBC RBC Hgb Hct MCV MCH MCHC RDW Plt Count MPV Immature Gran % Neutrophils % Lymphocytes % Monocytes % Eosinophils % Basophils % Absolute Neutrophils Absolute Lymphocytes Absolute Monocytes Absolute Eosinophils Absolute Basophils PT INR APTT VBG pH VBG pCO2 VBG pO2 VBG HCO3 VBG Total CO2 VBG O2 Saturation VBG Base Excess Sodium Potassium Chloride Carbon Dioxide Anion Gap BUN Creatinine Estimated GFR/1.73 m2 Glucose Calcium Total Bilirubin AST ALT Alkaline Phosphatase Ammonia Creatine Kinase Troponin I Total Protein Albumin TSH Urine Color Yellow Urine Clarity Cloudy Urine pH 6.0 Ur Specific [place] 1.020 Urine Protein 100 H Urine Ketones 15 H Urine Blood Moderate H Urine Nitrite Negative Urine Bilirubin Small H Urine Urobilinogen 1.0 H Ur Leukocyte Esterase Small H Urine RBC >50 H Urine WBC >50 Ur Epithelial Cells Rare Urine Crystals Negative Urine Bacteria Moderate Urine Casts Negative Urine Mucus Moderate Urine Other Negative Ur Culture Indicated? Yes Urine Glucose Negative [place] Last Vital Signs Temp 36.5 C 08/04/18 18:09 Pulse 73 08/04/18 18:09 Resp 30 H 08/04/18 19:11 BP 167/68 H 08/04/18 18:09 Pulse Ox 93 L 08/04/18 18:09
[2018-08-04] MEDS: Normal Saline 1,000 ML 1000 ML IV (20:23)
--- NOTE | 2018-08-04 20:32 | DI.VRAD_ITS ---
EXAM: CT Head Without Intravenous Contrast CLINICAL HISTORY: 78 years old, female; Signs and symptoms; Other: Confusion, lethargy TECHNIQUE: Axial computed tomography images of the head/brain without intravenous contrast. All CT scans at this facility use at least one of these dose optimization techniques: automated exposure control; mA and/or kV adjustment per patient size (includes targeted exams where dose is matched to clinical indication); or iterative reconstruction. Coronal and sagittal reformatted images were created and reviewed. COMPARISON: CT HEAD WITHOUT CONTRAST 07/17/2014 11:12 AM FINDINGS: Brain: Changes of cerebral and cerebellar atrophy. No hemorrhage. No significant white matter disease. Ventricles: Unremarkable. No ventriculomegaly. Bones/joints: Unremarkable. No acute fracture. Soft tissues: Unremarkable. Sinuses: Unremarkable as visualized. No acute sinusitis. Mastoid air cells: Unremarkable as visualized. No mastoid effusion. IMPRESSION: No acute focal intracranial lesions. Changes of cerebral and cerebellar atrophy. Dictated and Authenticated by: Prasanna Valera MD. Ordering:NINA CASTELLON MD
--- NOTE | 2018-08-04 20:36 | DI.VRAD_ITS ---
EXAM: XR Chest, 2 Views CLINICAL HISTORY: 78 years old, female; Signs and symptoms; Other: Fatigue TECHNIQUE: Frontal and lateral views of the chest. COMPARISON: SC XR CHEST 2V PA LATERAL 07/28/2018 4:18 PM FINDINGS: Lungs: Bibasilar opacities, blunting of the left costophrenic angle. Upper lung zones are clear. Pleural space: Loculated pleural effusion versus pleural masses within the right lower lung. Heart: Partially visualized cardiac silhouette, no obvious cardiomegaly identified. Mediastinum: Unremarkable. Bones/joints: Unremarkable. Soft tissues: Postsurgical changes with clips in the left axillary region. Vasculature: Atherosclerotic aorta. IMPRESSION: Possible bilateral pleural effusions. Loculated pleural effusion on the right versus pleural-based masses. Dictated and Authenticated by: Prasanna Valera MD. Ordering:NINA CASTELLON MD
--- NOTE | 2018-08-05 00:17 | NUR.NOTE ---
Nursing Note: Patient sent to the floor with normal saline running that was not scanned in the ER. Approximately 450cc left in the bag
[2018-08-05 01:33] VITALS: BP 149/71; PULSE 79; RESP 21; TEMP 37.1; O2SAT 98
[2018-08-05] MEDS: Normal Saline 1,000 ML 100 ML IV ×2 (03:22→13:08)
[2018-08-05] MEDS: Levothyroxine 100 MCG TAB PO (06:52)
[2018-08-05 07:50] VITALS: BP 177/71; PULSE 80; RESP 24; TEMP 37.9; O2SAT 92
--- NOTE | 2018-08-05 09:07 | PDOC.CMIN ---
- If Service Date Differs Date of service: 08/05/18 Time of Service: 09:07 Care Management Initial Assess REASON FOR HOSPITALIZATION:: UTI, Dehydration PAST MEDICAL HISTORY/PAST SURGICAL HISTORY:: Diabetes type 2, Chronic diabetic ulcer (L) foot, Bipolar 1 disorder, Diarrhea, Hypothyroidism, Hypertension, Insomnia, Edema (Peripheral), Hyperparathyroidism, Amputation, Biopsy of breast, Cholecystectomy, Hammertoe correction, Ulcer debridement, Lobectomy, Parathyroidectomy PREVIOUS FUNCTIONAL STATUS/SOCIAL/FAMILY SUPPORTS:: Luis resides alone in [place], she has four children three whom reside locally. Luis states that things are not going well at home. She states that her DIL cooks her meals for her and that her family assists with transportation CURRENT FUNCTIONAL STATUS:: Currently Luis is lying in bed this morning, she is pleasant and receptive to discussion. ADVANCE DIRECTIVES:: None on file Has patient been provided with information about the portal?: Yes Did the patient sign up for the portal?: No CODE STATUS:: DNR/DNI INSURANCE COVERAGE / FINANCIAL ISSUES:: Medicaid, [facility] CURRENT HOME/COMMUNITY SERVICES/EQUIPMENT:: Currently Luis has [facility] high highest serviecs. She has [employer]'s 2x/day. Sangeetha Funez is her CM in the community. She has a walker, raised toilet seat, commode, and w/c at home PRIMARY CARE PHYSICIAN:: Dr. Parks POTENTIAL DISCHARGE NEEDS:: F/U apopintment with PCP. ? SNF Placement PATIENT/FAMILY EDUCATION NEEDS:: Review DC instructions, any limitations, and ongoing DC planning discussion. Discuss Ask Me Three ANTICIPATED BARRIERS TO DISCHARGE:: None identified at this time. TRANSPORTATION:: Via private vehicle with family PLAN:: LAI spoke with Luis in regards to DC planning, she states at this time she is unsure about placement at a SNF. LAI discussed sending referrals for review and Luis was receptive to referrals being placed at [facility] as well as [facility]. LAI has faxed referral to both facilities at this time. [facility] does not have availability at this time.
--- NOTE | 2018-08-05 09:13 | INITIAL_ITS ---
- If Service Date Differs Date of service: 08/05/18 Time of Service: 09:07 Care Management Initial Assess REASON FOR HOSPITALIZATION:: UTI, Dehydration PAST MEDICAL HISTORY/PAST SURGICAL HISTORY:: Diabetes type 2, Chronic diabetic ulcer (L) foot, Bipolar 1 disorder, Diarrhea, Hypothyroidism, Hypertension, Insomnia, Edema (Peripheral), Hyperparathyroidism, Amputation, Biopsy of breast , Cholecystectomy, Hammertoe correction, Ulcer debridement, Lobectomy, Parathyroidectomy PREVIOUS FUNCTIONAL STATUS/SOCIAL/FAMILY SUPPORTS:: Luis resides alone in [place], she has four children three whom reside locally. Luis states that things are not going well at home. She states that her DIL cooks her meals for her and that her family assists with transportation CURRENT FUNCTIONAL STATUS:: Currently Luis is lying in bed this morning, she is pleasant and receptive to discussion. ADVANCE DIRECTIVES:: None on file Has patient been provided with information about the portal?: Yes Did the patient sign up for the portal?: No CODE STATUS:: DNR/DNI INSURANCE COVERAGE / FINANCIAL ISSUES:: Medicaid, [facility] CURRENT HOME/COMMUNITY SERVICES/EQUIPMENT:: Currently Luis has [facility] high highest serviecs. She has [employer]'s 2x/day. Sangeetha Funez is her CM in the community. She has a walker, raised toilet seat, commode, and w/c at home PRIMARY CARE PHYSICIAN:: Dr. Parks POTENTIAL DISCHARGE NEEDS:: F/U apopintment with PCP. ? SNF Placement PATIENT/FAMILY EDUCATION NEEDS:: Review DC instructions, any limitations, and ongoing DC planning discussion. Discuss Ask Me Three ANTICIPATED BARRIERS TO DISCHARGE:: None identified at this time. TRANSPORTATION:: Via private vehicle with family PLAN:: LAI spoke with Luis in regards to DC planning, she states at this time she is unsure about placement at a SNF. LAI discussed sending referrals for review and Luis was receptive to referrals being placed at [facility] as well as [facility]. LAI has faxed referral to both facilities at this time. [facility] does not have availability at this time.
--- NOTE | 2018-08-05 09:50 | W.ED.GENAD ---
Discharge Plan Disposition Patient Disposition: [facility] INPATIENT Condition: Stable Discharge Details Chief Complaint: GenMedical Clinical Impression: Acute UTI, Diarrhea, Activity of daily living alteration, Acute dehydration Reason For Visit: UTI, DEHYDRATION, WEAKNESS, DIARRHEA Admit Date/Time: 08/04/18 20:16 Admit Provider: Ricki Gann Attending Provider: Ricki Gann Primary Care Provider: Abhi Parks ED Provider: Michael Page Discharge Data Discharge Date/Time-TO BE ENTERED AT DEPARTURE: 08/04/18 21:43 HPI General Date/Time Provider Initiated Documentation: 08/04/18 17:26. HPI Narrative: This is a 78-year-old female with a past medical history of hypertension, bipolar, Related Data Home Medications Medication Instructions Recorded Confirmed acetaminophen 1 tab PO Q6H PRN 10/19/15 07/31/18 pen needle, diabetic [BD #100 ea 01/30/16 07/31/18 Ultra-Fine Tiffany Pen Needle] lancets [OneTouch Delica Lancets] #100 ea 03/07/16 07/31/18 blood sugar diagnostic [OneTouch #200 strip 03/10/17 07/31/18 Ultra Test] mirtazapine 30 mg PO DAILY #90 tab-cap 09/25/17 07/31/18 apixaban [Eliquis] 5 mg PO BID #60 tab 12/12/17 07/31/18 cinacalcet [Sensipar] 30 mg PO DAILY #90 tab-cap 01/05/18 07/31/18 lithium carbonate 150 mg PO BID #180 cap 01/13/18 07/31/18 insulin glargine [Lantus U-100 50 units SUB-Q DAILY #3 vial 03/02/18 07/31/18 Insulin] polyethylene glycol 3350(bulk) 17 gm PO DAILY PRN #1200 g 03/24/18 07/31/18 levothyroxine 100 mcg PO DAILY #90 tab-cap 05/20/18 07/31/18 insulin syringe-needle U-100 [BD #100 syringe 06/17/18 07/31/18 Insulin Syringe] trazodone 50 mg tablet 100 mg PO DAILY tab 07/31/18 07/31/18 Previous Rx's Medication Instructions Recorded mirtazapine 30 mg PO DAILY #90 tab-cap 09/25/17 apixaban [Eliquis] 5 mg PO BID #60 tab 12/12/17 cinacalcet [Sensipar] 30 mg PO DAILY #90 tab-cap 01/05/18 lithium carbonate 150 mg PO BID #180 cap 01/13/18 insulin glargine [Lantus U-100 50 units SUB-Q DAILY #3 vial 03/02/18 Insulin] levothyroxine 100 mcg PO DAILY #90 tab-cap 05/20/18 insulin syringe-needle U-100 [BD #100 syringe 06/17/18 Insulin Syringe] Allergies Allergy/AdvReac Type Severity Reaction Status Date / Time ciprofloxacin AdvReac Intermediate Anorexia Unverified 08/04/18 19:11 fluoxetine AdvReac Intermediate Tremor, Unverified 08/04/18 19:11 weakness metformin AdvReac Unknown Diarrhea Unverified 08/04/18 19:11 General Stated Complaint: GenMedical TYLER: 3 PFSH Social History Smoking/Tobacco Use Status: Never Surgical History Amputation (01/08/11) Biopsy of breast Cholecystectomy Correction, Hammertoe (04/20/03) Debridement Ulcer (08/27/00) Debridement Ulcer (04/06/12) Debridement Ulcer (04/09/12) Fracture, Open Treatment Incision & Drainage, Abscess or Hematoma (03/16/04) Lobectomy Parathyroidectomy Course Vital Signs Respiratory Rate 27 H 08/04/18 17:40 Pulse Oximetry 93 L 08/04/18 17:40 Temperature 37.9 C H 08/05/18 07:50 Temperature Source Tympanic 08/05/18 07:50 Pulse 80 08/05/18 07:50 Pulse Rhythm Regular 08/05/18 01:30 Pulse 77 08/04/18 20:16 Respiratory Rate 24 08/05/18 07:50 Respiratory Effort 08/05/18 01:30 Respiratory Depth Normal 08/05/18 01:30 Respiratory Pattern Normal 08/05/18 01:30 Blood Pressure 177/71 H 08/05/18 07:50 Blood Pressure Mean 121 08/04/18 20:16 Blood Pressure Position Supine 08/04/18 18:09 Pulse Oximetry 92 L 08/05/18 07:50 Oxygen Delivery Method Nasal Cannula 08/05/18 07:50 Oxygen Flow Rate 1 08/05/18 07:50 Pain Level 0 08/04/18 21:53 Lab/Test Results Lab/Test Results: 08/04/18 18:30 Urine - Reflex from Ua Urine Culture - Preliminary Gram Negative [facility] Laboratory Tests Range/Units 08/04/18 08/04/18 08/04/18 17:45 17:45 17:45 WBC (4.4-10.8) k/cumm RBC (4.00-5.20) m/cumm Hgb (12.0-15.5) g/dL Hct (36.0-46.0) % MCV (80-95) fL MCH (27.0-33.0) pg MCHC (32.0-36.0) g/dL RDW (11.7-14.6) % Plt Count (130-400) x1000/uL MPV (8.0-11.0) fL Immature Gran % Neutrophils % Lymphocytes % Monocytes % Eosinophils % Basophils % Absolute Neutrophils (1.2-6.7) k/cumm Absolute Lymphocytes (1.2-3.4) k/cumm Absolute Monocytes (0.11-0.7) k/cumm Absolute Eosinophils (0.0-0.7) k/cumm Absolute Basophils (0.0-0.2) k/cumm PT (9.3-10.8) sec INR (1.0-3.5) APTT (21.0-31.4) sec VBG pH (7.32-7.43) VBG pCO2 (34-47) mm/Hg VBG pO2 (28-44) mm/Hg VBG HCO3 (22-28) mmol/L VBG Total CO2 (22-29) mmol/L VBG O2 Saturation (70-80) % VBG Base Excess (-3-3) mmol/L Sodium (136-145) mmol/L 141 Potassium (3.5-5.1) mmol/L 4.6 Chloride (98-107) mmol/L 108 H Carbon Dioxide (21.0-32.0) mmol/L 22.8 Anion Gap (3-11) mmol/L 10.2 BUN (7-18) mg/dL 32 H Creatinine (0.55-1.02) mg/dL 1.43 H Estimated GFR/1.73 m2 (mL/min/1.73m2) 35.40 Glucose (70-100) mg/dL 196 H Calcium (8.5-10.1) mg/dL 10.1 Total Bilirubin (0.2-1.0) mg/dL 0.8 AST (15-37) U/L 36 ALT (12-78) U/L 41 Alkaline Phosphatase (46-116) U/L 182 H Ammonia (11-32) umol/L 26 Creatine Kinase (26-192) U/L 14 L Troponin I (0.00-0.06) ng/mL 0.04 Total Protein (6.4-8.2) g/dL 7.0 Albumin (3.4-5.0) g/dL 2.0 L TSH (0.358-3.74) uIU/mL 1.03 Urine Color (Yellow) Urine Clarity Urine pH (5-8) Ur Specific [place] (1.005-1.025) Urine Protein (Negative) mg/dL Urine Ketones (Negative) mg/dL Urine Blood (Negative) Urine Nitrite (Negative) Urine Bilirubin (Negative) Urine Urobilinogen (Up TO 0.2) EU/dL Ur Leukocyte Esterase (Negative) Urine RBC (0-2) Urine WBC (0-5) HPF Ur Epithelial Cells (Negative) HPF Urine Crystals (Negative) HPF Urine Bacteria (Negative) HPF Urine Casts (Negative) LPF Urine Mucus (Negative) Urine Other (Negative) Ur Culture Indicated? Urine Glucose (Negative) mg/dL [place] (0.60-1.20) mmol/L 1.76 H Range/Units 08/04/18 08/04/18 08/04/18 17:45 17:45 17:45 WBC (4.4-10.8) k/cumm 10.38 RBC (4.00-5.20) m/cumm 3.72 L Hgb (12.0-15.5) g/dL 11.3 L Hct (36.0-46.0) % 37.7 MCV (80-95) fL 101.3 H MCH (27.0-33.0) pg 30.4 MCHC (32.0-36.0) g/dL 30.0 L RDW (11.7-14.6) % 14.0 Plt Count (130-400) x1000/uL 239 MPV (8.0-11.0) fL 10.2 Immature Gran % 0.8 Neutrophils % 79.4 Lymphocytes % 8.5 Monocytes % 10.8 Eosinophils % 0.3 Basophils % 0.2 Absolute Neutrophils (1.2-6.7) k/cumm 8.25 H Absolute Lymphocytes (1.2-3.4) k/cumm 0.88 L Absolute Monocytes (0.11-0.7) k/cumm 1.12 H Absolute Eosinophils (0.0-0.7) k/cumm 0.03 Absolute Basophils (0.0-0.2) k/cumm 0.02 PT (9.3-10.8) sec 13.0 H INR (1.0-3.5) 1.3 APTT (21.0-31.4) sec 28.5 VBG pH (7.32-7.43) 7.37 VBG pCO2 (34-47) mm/Hg 38 VBG pO2 (28-44) mm/Hg 50 H VBG HCO3 (22-28) mmol/L 22 VBG Total CO2 (22-29) mmol/L 20 L VBG O2 Saturation (70-80) % 85 H VBG Base Excess (-3-3) mmol/L -3.3 L Sodium (136-145) mmol/L Potassium (3.5-5.1) mmol/L Chloride (98-107) mmol/L Carbon Dioxide (21.0-32.0) mmol/L Anion Gap (3-11) mmol/L BUN (7-18) mg/dL Creatinine (0.55-1.02) mg/dL Estimated GFR/1.73 m2 (mL/min/1.73m2) Glucose (70-100) mg/dL Calcium (8.5-10.1) mg/dL Total Bilirubin (0.2-1.0) mg/dL AST (15-37) U/L ALT (12-78) U/L Alkaline Phosphatase (46-116) U/L Ammonia (11-32) umol/L Creatine Kinase (26-192) U/L Troponin I (0.00-0.06) ng/mL Total Protein (6.4-8.2) g/dL Albumin (3.4-5.0) g/dL TSH (0.358-3.74) uIU/mL Urine Color (Yellow) Urine Clarity Urine pH (5-8) Ur Specific [place] (1.005-1.025) Urine Protein (Negative) mg/dL Urine Ketones (Negative) mg/dL Urine Blood (Negative) Urine Nitrite (Negative) Urine Bilirubin (Negative) Urine Urobilinogen (Up TO 0.2) EU/dL Ur Leukocyte Esterase (Negative) Urine RBC (0-2) Urine WBC (0-5) HPF Ur Epithelial Cells (Negative) HPF Urine Crystals (Negative) HPF Urine Bacteria (Negative) HPF Urine Casts (Negative) LPF Urine Mucus (Negative) Urine Other (Negative) Ur Culture Indicated? Urine Glucose (Negative) mg/dL [place] (0.60-1.20) mmol/L Range/Units 08/04/18 18:30 WBC (4.4-10.8) k/cumm RBC (4.00-5.20) m/cumm Hgb (12.0-15.5) g/dL Hct (36.0-46.0) % MCV (80-95) fL MCH (27.0-33.0) pg MCHC (32.0-36.0) g/dL RDW (11.7-14.6) % Plt Count (130-400) x1000/uL MPV (8.0-11.0) fL Immature Gran % Neutrophils % Lymphocytes % Monocytes % Eosinophils % Basophils % Absolute Neutrophils (1.2-6.7) k/cumm Absolute Lymphocytes (1.2-3.4) k/cumm Absolute Monocytes (0.11-0.7) k/cumm Absolute Eosinophils (0.0-0.7) k/cumm Absolute Basophils (0.0-0.2) k/cumm PT (9.3-10.8) sec INR (1.0-3.5) APTT (21.0-31.4) sec VBG pH (7.32-7.43) VBG pCO2 (34-47) mm/Hg VBG pO2 (28-44) mm/Hg VBG HCO3 (22-28) mmol/L VBG Total CO2 (22-29) mmol/L VBG O2 Saturation (70-80) % VBG Base Excess (-3-3) mmol/L Sodium (136-145) mmol/L Potassium (3.5-5.1) mmol/L Chloride (98-107) mmol/L Carbon Dioxide (21.0-32.0) mmol/L Anion Gap (3-11) mmol/L BUN (7-18) mg/dL Creatinine (0.55-1.02) mg/dL Estimated GFR/1.73 m2 (mL/min/1.73m2) Glucose (70-100) mg/dL Calcium (8.5-10.1) mg/dL Total Bilirubin (0.2-1.0) mg/dL AST (15-37) U/L ALT (12-78) U/L Alkaline Phosphatase (46-116) U/L Ammonia (11-32) umol/L Creatine Kinase (26-192) U/L Troponin I (0.00-0.06) ng/mL Total Protein (6.4-8.2) g/dL Albumin (3.4-5.0) g/dL TSH (0.358-3.74) uIU/mL Urine Color (Yellow) Yellow Urine Clarity Cloudy Urine pH (5-8) 6.0 Ur Specific [place] (1.005-1.025) 1.020 Urine Protein (Negative) mg/dL 100 H Urine Ketones (Negative) mg/dL 15 H Urine Blood (Negative) Moderate H Urine Nitrite (Negative) Negative Urine Bilirubin (Negative) Small H Urine Urobilinogen (Up TO 0.2) EU/dL 1.0 H Ur Leukocyte Esterase (Negative) Small H Urine RBC (0-2) >50 H Urine WBC (0-5) HPF >50 Ur Epithelial Cells (Negative) HPF Rare Urine Crystals (Negative) HPF Negative Urine Bacteria (Negative) HPF Moderate Urine Casts (Negative) LPF Negative Urine Mucus (Negative) Moderate Urine Other (Negative) Negative Ur Culture Indicated? Yes Urine Glucose (Negative) mg/dL Negative [place] (0.60-1.20) mmol/L
[2018-08-05] MEDS: Lithium Carbonate 150 MG CAP PO (10:06)
[2018-08-05] MEDS: Apixaban 5 MG TAB PO ×2 (10:06→19:28)
--- NOTE | 2018-08-05 12:36 | PHARADMIT ---
Addendum entered by Shira Hollins 08/11/18 16:01: Pharmacy Note Subjective lithium is slow to diffuse from brain, so may take weeks to clear per neuro consult Objective VS-okay Cl-114(up) BG-148 lithium-0.82 Assessment ceftriaxone continues (extended to 10 days due to klebsiella in urine and pt just beginning to improve today per progress note) insulin detemir dose increased yesterday Plan watch lithium levels Original Note: Addendum entered by Shira Hollins 08/10/18 10:34: Pharmacy Note Subjective neuro-status still not at baseline per morning report Objective VS-okay Cl-112 lithium-0.81 BG-209 Assessment dose #7 of ceftriaxone this evening MRI of brain ordered, neuro consult no med changes so far today Plan Abx coverage for 7 days per MD (discontinue abx after this evenings dose?) watch lithium levels Original Note: Addendum entered by Jayshree Graham 08/09/18 12:20: Pharmacy Note Subjective refusing some meds, refusing to get OOB Objective VS-good, afebrile, no weights, K+ 4.3, Mag 1.8, Cokedale level 0.94, BG 271 Assessment Cokedale restarted @ 150mg daily....MD unsure why she presented with toxicity considering her home dose is only 150mg BID, possibly she has a mix-up with meds considering mental status K and Mag corrected from yesterday Rocephin is going into dose #6 for Klebsiella in urine No insulin adjustments at this time for high BG IVF's stopped Plan follow Cokedale levels, possible MRI, Neuro checks-not at baseline Anbx coverage for 7 days per MD (Last dose s/b Friday evening after 8pm dose 08/10/18) Original Note: Addendum entered by Biju Schaeffer III 08/07/18 10:44: Pharmacy Note Subjective Not sleeping well ,MD to re-order Trazodone (home med) Objective VS-OK Na-141 K+4.7 Mag-1.9 Li-1.04 SCr-0.96 Assessment Home med list entered in by nursing. MD to address & order. Plan Cokedale level has normalized. Patient to go to rehab when ready. Original Note: Addendum entered by Jayshree Graham 08/06/18 17:50: Pharmacy Note Subjective per MD, all of her symptoms may be related to Cokedale toxicity Objective Cokedale level today: 1.31 (trending down), all other labs okay, VS ok Micro urine: Klebsiella>100k Assessment no med changes, waiting for Cokedale to clear Rocephin for UTI w/sensitivities Plan May need SNF placement upon discharge or home with services Original Note: Admission Pharmacy Clinical Review UTI, DEHYDRATION,WEAKNESS Code Status DNR/DNI Current Weight Wgt-67.6 kg Renally Cleared and Narrow Therapeutic Index Meds CrCl~ 29.8 mL/min Meds-OK QTc Value / Action Taken NA BP Control, Fever BP- 177/71 Tmax- 37.9C Electrolytes reviewed Na- 141 K+4.6 DVT Prophylaxis Apixaban Opiate Usage / Scheduled Bowel Regimen Ordered No No Plt/SCr for Heparin / Enoxaparin Plts- 239 SCr- 1.43 INR for Warfarin inr-1.3 H/H stable, WBC/Bands H&H- 11.3/37.7 WBC- 10.38 Antibiotic appropriateness rocephin Cultures and Sensitivities Urine-gram neg carmenza Surgical ABX d/c within 24 hr NA DM control / Insulin Dosing BG- 196 Heart Failure (Check EF%) (LUKE's, B-Block, Diuretics) none IV to PO Switch No Home Meds Reviewed [employer] Sensipar y Home Meds Not Ordered Lantus, Cokedale (on HOLD), Remweron, Miralax, Trazodone Comments Cokedale 1.76 (0.6-1.20)
[2018-08-05 12:48] LABS: Lithium 1.59 mmol/L (0.60-1.20)
--- NOTE | 2018-08-05 15:05 | PT.INIE ---
Date of service: 08/05/18 Time of Service: 15:00 PT Notes Inpatient Physical Therapy Evaluation Date: 08/05/18 Referring Doctor: Katarzyna Weston PT Orders: PT CONSULT: deconditioning Precautions: Fall Precautions/ Contact Precautions Patient Profile/Admitting Diagnosis: Pt is a 72yr old female admitted with urinary tract infection, dehydration PMHX: diabetes mellitus type II, diabetic ulcer left foot, amputation bilateral feet toes, Bipolar disorder 1, left femur fracture s/p nailing 08/30/15, peripheral edema, neurogenic bladder, urinary retention, lobectomy, parathyroidectomy, hyperparathyroidism, insomnia, hypertension, hammer toe correction, cholecystectomy Social History/Home Situation: Lives alone in a home, reports no stairs to enter, reports baseline mobility is independent with no device, has a cane and walker if needed. Reports she is independent with ADLS Equipment Owned/DME: cane, FWW, wheelchair, raised toilet seat, commode Subjective: Pt lying in bed sleeping, arousable to verbal stimulus, agreeable to PT consult. Asking for something to drink, pt provided with farida roro that was at bedside. Objective: General Observation: IV R UE, 2 liters 02 NC Mental Status: A& O x3 Pain: no c/o pain ROM: Right Upper Extremity: AAROM WNL Left Upper Extremity: AAROM WNL Right Lower Extremity: AAROM WNL Left Lower Extremity: AAROM WNL Strength: Right Upper Extremity: 3/5 shoulder flexion, 4/5 bicep, 4/5 operations manager assistant Left Upper Extremity: 3/5 shoulder flexion, 4/5 bicep, 4/5 operations manager assistant Right Lower Extremity: 3/5 hip flexion, 4/5 quad, 4/5 DF/PF Left Lower Extremity: 3/5 hip flexion, 4/5 quad, 4/5 DF/PF Bed Mobility/Transfers: Supine-sit: HOB 30 degrees SBA Sit-stand: CGA with FWW Stand-sit: SBA Sit-supine: HOB flat, SBA Gait: CGA with FWW 4 steps forward and back in room, 3 side steps right at bedside. Pt weak, required use of gait belt for assistance. Pt positioned back in bed after session completed with fall alarm activated. Balance: Static Sitting: normal Dynamic Sitting: normal Static Standing: fair Dynamic Standing:poor Special Tests: Mobility Limitations Standardized Measure [facility]-PAC 6 clicks Basic Mobility Inpatient Short Form: Raw Score: 18 Standardized Score: 43.63 CMS Score: 46.58% CMS Modifier: CK Informed Consent/Education: Patient instructed in purpose of PT consult and plan of care. Assessment: Pt is a 72yr old female admitted with urinary tract infection, dehydration in setting of diabetes mellitus type II, diabetic ulcer left foot, amputation bilateral feet toes, Bipolar disorder 1, left femur fracture s/p nailing 08/30/15, peripheral edema, neurogenic bladder, urinary retention, lobectomy. Patient presents with the following impairment level findings: weakness in bilateral upper and lower extremities, decreased strength with bed mobility, standing transfers and gait mobility requiring FWW and one person assist for safety due to weakness and decreased static and dynamic standing balance. Pt will benefit from skilled PT intervention, recommend [facility] for rehab prior to return to home setting. Impairments are contributing to the following functional limitations: AMPAC score CMS Score: 46.58% Patient is assessed as a High 52424 complexity based on the following: History: see above Examination: see above Presentation: evolving Decision Making: AMPAC score CMS Score: 46.58% Goals: Goals X1 week 1. Supine-Sit : independent 2. Sit-Supine : independent 3. Sit-Stand : SBA with FWW 4. Stand-Sit : SBA 5. Bed-Chair :SBA with FWW 6. Chair-Bed : SBA with FWW 7. Gait: SBA with FWW 50ftx2 Plan of Care/Treatment Plan: 1-2x/day, 7 days/week x 1 week. Plan of care has been reviewed with the BUN MACHINE OPERATOR providing the service under Physical Therapy direction. Initiate Physical Therapy intervention for strengthening, bed mobility, transfers, gait, stairs, balance training, use of assistive device. DISCHARGE RECOMMENDATIONS[facility] TREATMENT CODE/TIME: 24min IE 1500 G Codes in the area mobility of walking and moving around: current status [id number] []; projected status GP [id number]-[]. Discharge status (if discharging) GP [id number] CK based on AMPAC score CMS Score: 46.58% Janet Fatima PT
--- NOTE | 2018-08-05 15:18 | IN_ITS ---
Date of service: 08/05/18 Time of Service: 15:00 PT Notes Inpatient Physical Therapy Evaluation Date: 08/05/18 Referring Doctor: Katarzyna Weston PT Orders: PT CONSULT: deconditioning Precautions: Fall Precautions/ Contact Precautions Patient Profile/Admitting Diagnosis: Pt is a 72yr old female admitted with urinary tract infection, dehydration PMHX: diabetes mellitus type II, diabetic ulcer left foot, amputation bilateral feet toes, Bipolar disorder 1, left femur fracture s/p nailing 08/30/15, peripheral edema, neurogenic bladder, urinary retention, lobectomy, parathyroidectomy, hyperparathyroidism, insomnia, hypertension, hammer toe correction, cholecystectomy Social History/Home Situation: Lives alone in a home, reports no stairs to enter , reports baseline mobility is independent with no device, has a cane and walker if needed. Reports she is independent with ADLS Equipment Owned/DME: cane, FWW, wheelchair, raised toilet seat, commode Subjective: Pt lying in bed sleeping, arousable to verbal stimulus, agreeable to PT consult. Asking for something to drink, pt provided with farida roro that was at bedside. Objective: General Observation: IV R UE, 2 liters 02 NC Mental Status: A& O x3 Pain: no c/o pain ROM: Right Upper Extremity: AAROM WNL Left Upper Extremity: AAROM WNL Right Lower Extremity: AAROM WNL Left Lower Extremity: AAROM WNL Strength: Right Upper Extremity: 3/5 shoulder flexion, 4/5 bicep, 4/5 ammonia box tender Left Upper Extremity: 3/5 shoulder flexion, 4/5 bicep, 4/5 ammonia box tender Right Lower Extremity: 3/5 hip flexion, 4/5 quad, 4/5 DF/PF Left Lower Extremity: 3/5 hip flexion, 4/5 quad, 4/5 DF/PF Bed Mobility/Transfers: Supine-sit: HOB 30 degrees SBA Sit-stand: CGA with FWW Stand-sit: SBA Sit-supine: HOB flat, SBA Gait: CGA with FWW 4 steps forward and back in room, 3 side steps right at bedside. Pt weak, required use of gait belt for assistance. Pt positioned back in bed after session completed with fall alarm activated. Balance: Static Sitting: normal Dynamic Sitting: normal Static Standing: fair Dynamic Standing:poor Special Tests: Mobility Limitations Standardized Measure [facility]-PAC 6 clicks Basic Mobility Inpatient Short Form: Raw Score: 18 Standardized Score: 43.63 CMS Score: 46.58% CMS Modifier: CK Informed Consent/Education: Patient instructed in purpose of PT consult and plan of care. Assessment: Pt is a 72yr old female admitted with urinary tract infection, dehydration in setting of diabetes mellitus type II, diabetic ulcer left foot, amputation bilateral feet toes, Bipolar disorder 1, left femur fracture s/p nailing 08/30/15, peripheral edema, neurogenic bladder, urinary retention, lobectomy. Patient presents with the following impairment level findings: weakness in bilateral upper and lower extremities, decreased strength with bed mobility, standing transfers and gait mobility requiring FWW and one person assist for safety due to weakness and decreased static and dynamic standing balance. Pt will benefit from skilled PT intervention, recommend [facility] care facility for rehab prior to return to home setting. Impairments are contributing to the following functional limitations: AMPAC score CMS Score: 46.58% Patient is assessed as a High 47615 complexity based on the following: History: see above Examination: see above Presentation: evolving Decision Making: AMPAC score CMS Score: 46.58% Goals: Goals X1 week 1. Supine-Sit : independent 2. Sit-Supine : independent 3. Sit-Stand : SBA with FWW 4. Stand-Sit : SBA 5. Bed-Chair :SBA with FWW 6. Chair-Bed : SBA with FWW 7. Gait: SBA with FWW 50ftx2 Plan of Care/Treatment Plan: 1-2x/day, 7 days/week x 1 week. Plan of care has been reviewed with the NUT PICKER providing the service under Physical Therapy direction. Initiate Physical Therapy intervention for strengthening, bed mobility, transfers, gait, stairs, balance training, use of assistive device. DISCHARGE RECOMMENDATIONS: [facility] care facility for rehab TREATMENT CODE/TIME: 24min IE 1500 G Codes in the area mobility of walking and moving around: current status [id number] []; projected status GP [id number]-[]. Discharge status (if discharging) GP [id number] CK based on AMPAC score CMS Score: 46.58% Janet Fatima PT
[2018-08-05 16:06] VITALS: BP 140/77; PULSE 65; RESP 17; TEMP 36.2; O2SAT 96
[2018-08-05 17:00] VITALS: O2SAT 96
[2018-08-05 18:59] VITALS: BP 165/66; PULSE 72; RESP 18; TEMP 36.7; O2SAT 95
[2018-08-05 19:00] VITALS: O2SAT 95
--- NOTE | 2018-08-05 20:10 | W.PM.PROGNOT ---
Assessment and Plan (1) UTI (urinary tract infection): Current visit: Yes Status: Acute Present on admission, due to GNR. Continue empiric rocephin. Await C&S. (2) [place] toxicity: Current visit: Yes Status: Acute Might be a strong contributor to the encephalopathy. [place] on hold. Aggressive IV hydration, monitoring levels. (3) Toxic metabolic encephalopathy: Current visit: Yes Status: Acute Multifactorial, due to acute lithium toxicity as well as UTI and possible infectious diarrheal illness. Monitor mental status. May require MRI brain to r/o metastatic brain process given history of lung mass. (4) Bipolar 1 disorder: Current visit: No Status: Chronic [place] on hold due to above (5) Diabetes type 2, uncontrolled: Current visit: No Status: Chronic Start SSI/accuchecks. (6) Diarrhea: Current visit: No Status: Chronic (7) Paroxysmal atrial fibrillation: Current visit: Yes Status: Acute Anticoagulation with eliquis. Rate controlled. (8) Bilateral pleural effusion: Current visit: Yes Status: Acute At this point, benefits of IV hydration given lithium toxicity outweight the risks, but will need to be followed closely - repeat CXR tomorrow. (9) Lung mass: Current visit: Yes Status: Acute Will need outpatient biopsy - discussed with daughter. Subjective Interval history since last seen: The patient has been mostly lethargic today. She does wake up. She states she does not know where she is or what the date is. She denies any pain, dizziness, chest discomfort, shortness of breath, nausea, vomiting. Her daughter is very concerned. Exam Narrative Exam Narrative: General: Lethargic, arousable elderly female, confused, A&Ox1 HEENT: EOMI, Dry MM Heart: RRR, no m/r/g Lungs: CTAB, slightly rapid respiratory rate (20) GI: Abdomen soft, nontender, nondistended Extremities: no e/c/c BLE's. Objective Objective Clinical Data: Abnormal lab results 08/05/18 Range/Units 11:35 [place] 1.59 H (0.60-1.20) mmol/L Vital Signs Temperature 36.7 C 08/05/18 18:59 Temperature Source Tympanic 08/05/18 18:59 Pulse 72 08/05/18 18:59 Pulse Rhythm Regular 08/05/18 17:07 Pulse 77 08/04/18 20:16 Respiratory Rate 18 08/05/18 18:59 Respiratory Effort 08/05/18 17:07 Respiratory Depth Shallow 08/05/18 17:07 Respiratory Pattern Normal 08/05/18 17:07 Blood Pressure 165/66 H 08/05/18 18:59 Blood Pressure Mean 121 08/04/18 20:16 Blood Pressure Position Supine 08/04/18 18:09 Pulse Oximetry 95 08/05/18 18:59 Oxygen Delivery Method Nasal Cannula 08/05/18 18:59 Oxygen Flow Rate 1 08/05/18 18:59 Pain Level 0 08/05/18 18:59 Intake & Output 08/04/18 08/05/18 08/05/18 23:59 11:59 23:59 Intake Total 1140 / 1140 2643.334 / 2643.334 Output Total 300 / 300 300 / 300 Balance 840 / 840 2343.334 / 2343.334 Weight 67.6 kg Intake: IV 1050 / 1050 1563.334 / 1563.334 Oral 90 / 90 1080 / 1080 Output: Urine 300 / 300 300 / 300 Other: Urine Color Brown Light Tanya Urine Appearance Cloudy Cloudy Urine Odor Strong Strong Comment pt incontinent of large amounts of urine. Voiding Methods Bedside Commode Bedside Commode Laboratory Results WBC 10.38 k/cumm (4.4-10.8) 08/04/18 17:45 RBC 3.72 m/cumm (4.00-5.20) L 08/04/18 17:45 Hgb 11.3 g/dL (12.0-15.5) L 08/04/18 17:45 Hct 37.7 % (36.0-46.0) 08/04/18 17:45 MCV 101.3 fL (80-95) H 08/04/18 17:45 MCH 30.4 pg (27.0-33.0) 08/04/18 17:45 MCHC 30.0 g/dL (32.0-36.0) L 08/04/18 17:45 RDW 14.0 % (11.7-14.6) 08/04/18 17:45 Plt Count 239 x1000/uL (130-400) 08/04/18 17:45 MPV 10.2 fL (8.0-11.0) 08/04/18 17:45 Immature Gran % 0.8 08/04/18 17:45 Neutrophils % 79.4 08/04/18 17:45 Lymphocytes % 8.5 08/04/18 17:45 Monocytes % 10.8 08/04/18 17:45 Eosinophils % 0.3 08/04/18 17:45 Basophils % 0.2 08/04/18 17:45 Absolute Neutrophils 8.25 k/cumm (1.2-6.7) H 08/04/18 17:45 Absolute Lymphocytes 0.88 k/cumm (1.2-3.4) L 08/04/18 17:45 Absolute Monocytes 1.12 k/cumm (0.11-0.7) H 08/04/18 17:45 Absolute Eosinophils 0.03 k/cumm (0.0-0.7) 08/04/18 17:45 Absolute Basophils 0.02 k/cumm (0.0-0.2) 08/04/18 17:45 PT 13.0 sec (9.3-10.8) H 08/04/18 17:45 INR 1.3 (1.0-3.5) 08/04/18 17:45 APTT 28.5 sec (21.0-31.4) 08/04/18 17:45 VBG pH 7.37 (7.32-7.43) 08/04/18 17:45 VBG pCO2 38 mm/Hg (34-47) 08/04/18 17:45 VBG pO2 50 mm/Hg (28-44) H 08/04/18 17:45 VBG HCO3 22 mmol/L (22-28) 08/04/18 17:45 VBG Total CO2 20 mmol/L (22-29) L 08/04/18 17:45 VBG O2 Saturation 85 % (70-80) H 08/04/18 17:45 VBG Base Excess -3.3 mmol/L (-3-3) L 08/04/18 17:45 Sodium 141 mmol/L (136-145) 08/04/18 17:45 Potassium 4.6 mmol/L (3.5-5.1) 08/04/18 17:45 Chloride 108 mmol/L (98-107) H 10/09/18 17:45 Carbon Dioxide 22.8 mmol/L (21.0-32.0) 08/04/18 17:45 Anion Gap 10.2 mmol/L (3-11) 08/04/18 17:45 BUN 32 mg/dL (7-18) H 08/04/18 17:45 Creatinine 1.43 mg/dL (0.55-1.02) H 08/04/18 17:45 Estimated GFR/1.73 m2 35.40 (mL/min/1.73m2) 08/04/18 17:45 Glucose 196 mg/dL (70-100) H 08/04/18 17:45 Calcium 10.1 mg/dL (8.5-10.1) 08/04/18 17:45 Total Bilirubin 0.8 mg/dL (0.2-1.0) 08/04/18 17:45 AST 36 U/L (15-37) 08/04/18 17:45 ALT 41 U/L (12-78) 08/04/18 17:45 Alkaline Phosphatase 182 U/L (46-116) H 08/04/18 17:45 Ammonia 26 umol/L (11-32) 08/04/18 17:45 Creatine Kinase 14 U/L (26-192) L 08/04/18 17:45 Troponin I 0.04 ng/mL (0.00-0.06) 08/04/18 17:45 Total Protein 7.0 g/dL (6.4-8.2) 08/04/18 17:45 Albumin 2.0 g/dL (3.4-5.0) L 08/04/18 17:45 TSH 1.03 uIU/mL (0.358-3.74) 08/04/18 17:45 Urine Color Yellow (Yellow) 08/04/18 18:30 Urine Clarity Cloudy 08/04/18 18:30 Urine pH 6.0 (5-8) 08/04/18 18:30 Ur Specific [place] 1.020 (1.005-1.025) 08/04/18 18:30 Urine Protein 100 mg/dL (Negative) H 08/04/18 18:30 Urine Ketones 15 mg/dL (Negative) H 08/04/18 18:30 Urine Blood Moderate (Negative) H 08/04/18 18:30 Urine Nitrite Negative (Negative) 08/04/18 18:30 Urine Bilirubin Small (Negative) H 08/04/18 18:30 Urine Urobilinogen 1.0 EU/dL (Up TO 0.2) H 08/04/18 18:30 Ur Leukocyte Esterase Small (Negative) H 08/04/18 18:30 Urine RBC >50 (0-2) H 08/04/18 18:30 Urine WBC >50 HPF (0-5) 08/04/18 18:30 Ur Epithelial Cells Rare HPF (Negative) 08/04/18 18:30 Urine Crystals Negative HPF (Negative) 08/04/18 18:30 Urine Bacteria Moderate HPF (Negative) 08/04/18 18:30 Urine Casts Negative LPF (Negative) 08/04/18 18:30 Urine Mucus Moderate (Negative) 08/04/18 18:30 Urine Other Negative (Negative) 08/04/18 18:30 Ur Culture Indicated? Yes 08/04/18 18:30 Urine Glucose Negative mg/dL (Negative) 08/04/18 18:30 [place] 1.59 mmol/L (0.60-1.20) H 08/05/18 11:35
[2018-08-05] MEDS: Normal Saline 1,000 ML 150 ML IV (22:58)
[2018-08-06 02:55] VITALS: BP 134/71; PULSE 58; RESP 22; TEMP 37.2; O2SAT 95
[2018-08-06 04:24] VITALS: O2SAT 95
[2018-08-06] MEDS: Normal Saline 1,000 ML 150 ML IV ×3 (05:20→18:13)
[2018-08-06] MEDS: Levothyroxine 100 MCG TAB PO (05:31)
--- NOTE | 2018-08-06 07:00 | DI.RAD_ITS ---
SYMPTOM/DIAGNOSIS: F/U PLEURAL EFFUSIONS PORTABLE AP CHEST: Comparison is made with 07/28/18. There is an apparent interval decrease in size of the previously noted right pleural effusion versus differences in technique. The lungs are not well inflated. Right sided posterior pleural masses are again noted. Left sided axillary clips are seen. The heart size is within normal limits. IMPRESSION: Question of an interval decrease in size of the right pleural effusion versus differences in technique.
[2018-08-06 07:25] LABS: Abs Immature Grans 0.05 k/cumm (0.0-0.09); Absolute Basophil Count 0.01 k/cumm (0.0-0.2); Absolute Eosinophil Count 0.26 k/cumm (0.0-0.7); Absolute Lymphocyte Count 0.79 k/cumm (1.2-3.4); Absolute Monocyte Count 0.69 k/cumm (0.11-0.7); Absolute Neutrophil Count 5.89 k/cumm (1.2-6.7); Basophils % 0.1; Eosinophils % 3.4; HCT 35.3 % (36.0-46.0); HGB 10.3 g/dL (12.0-15.5); Immature Grans % 0.7; Lymphocytes % 10.3; Mean Corp. HGB Concentration 29.2 g/dL (32.0-36.0); Mean Corpuscular Hemoglobin 29.8 pg (27.0-33.0); Mean Platelet Volume 9.8 fL (8.0-11.0); Neutrophils % 76.5; Platelet Count 231 x1000/uL (130-400); RBC 3.46 m/cumm (4.00-5.20); RBC Distribution Width 14.2 % (11.7-14.6); White Blood Cell Count 7.69 k/cumm (4.4-10.8)
[2018-08-06 07:39] LABS: Anion Gap 6.3 mmol/L (3-11); BUN 27 mg/dL (7-18); CO2 22.7 mmol/L (21.0-32.0); CREATININE 1.03 mg/dL (0.55-1.02); Calcium 9.7 mg/dL (8.5-10.1); Chloride 110 mmol/L (98-107); Estimated GFR 51.69 (mL/min/1.73m2); Glucose 277 mg/dL (70-100); Magnesium 1.8 mg/dL (1.8-2.4); Potassium 4.7 mmol/L (3.5-5.1); Sodium 139 mmol/L (136-145)
[2018-08-06 07:45] VITALS: BP 135/70; PULSE 56; RESP 18; TEMP 36.3; O2SAT 98
[2018-08-06] MEDS: Normal Saline Flush 10 ML SYR (08:09)
[2018-08-06] MEDS: Apixaban 5 MG TAB PO ×2 (08:09→21:20)
[2018-08-06] MEDS: Insulin Aspart 300 UNITS/3 ML PEN SC ×3 (08:12→17:26)
--- NOTE | 2018-08-06 08:37 | OT.INNT ---
Date of service: 08/06/18 Time of Service: 08:37 Occupational Therapy Notes 08/06/18 OT consult received and pt's chart reviewed. Pt sitting in chair when OT arrived finishing her breakfast. Pt states that she did not sleep well last night and denies OT consult for today, asking OT to come back tomorrow. OT will check in with pt tomorrow. Teena Li OTR/L
[2018-08-06 11:21] LABS: Lithium 1.31 mmol/L (0.60-1.20)
--- NOTE | 2018-08-06 11:58 | DM INPTCON_ITS ---
DESCRIPTION/ASSESSMENT: Appreciate diabetes consult for Luis Sharma who is hospitalized with UTI and dehydration with complication of elevated lithium levels. Luis is 78 years old with A1c 8.2 BMI 24 Home Medication list indicates she takes 50u Glargine for diabetes management. Blood sugars here 219 up to 276 this AM taking 5 units detemir. She also started sensitive insulin correction this AM. She ate 31 grams carbohydrate at breakfast. A1c elevated at this time, however unsure of co-morbidities including lung complications and thus the benefit of intensifying her insulin regimen if she is not symptomatic for hyperglycemia. Hospitalist reports indicate she is lethargic at this time. INTERVENTION: Suggest increasing basal insulin to at least half her usual dose of 50units. PLAN: Will follow blood sugars and visit with patient as she is able.
--- NOTE | 2018-08-06 12:08 | PT.INTREAT ---
Date of service: 08/06/18 Time of Service: 12:08 PT Notes Inpatient Physical Therapy Treatment Note Date: 08/06/18 PRECAUTIONS:Fall SUBJECTIVE: Luis states that she is feeling much better today, although she reports that she did not sleep at all last night. OBJECTIVE: PAIN: No c/o pain BED MOBILITY/TRANSFERS Supine-sit: S with HOB at 30 degrees Sit-stand: SBA Stand-sit: SBA GAIT Assistive Device: FWW Weight bearing: Full Assist: CGA Distance: 30' THEREX: Patient completed a seated LE strengthening program, as per flow sheet. Patient required skilled cueing for proper exercise performance. ASSESSMENT: Patient tolerated session well, with minimal complaints of fatigue. She was able to tolerate a progression in gait distance well, with FWW support. Patient would benefit from continued participation in gait and transfer training, as well as strengthening, to improve ability to perform daily functional tasks. PLAN: Continue with PT's POC TREATMENT CODE/TIME: 25 minutes; TA/TP
--- NOTE | 2018-08-06 12:56 | PDOC.CMPRO ---
- If Service Date Differs Date of service: 08/06/18 Time of Service: 12:56 Care Management Progress Note S/O: Luis is lying in bed this morning when this com writer visits. She is pleasant and open to discussion. CM reviewed discussion from yesterday in regards to DC plans. Luis states that she would like to be able to return home when she is medically ready. CM discussed referrals that were sent to [facility] and [facility] yesterday, at this time [facility] has no female beds available. Luis would like to hold off on any other referrals at this time. CM to continue to follow and support throughout stay. Per MD in morning meeting Luis has [place] Toxicity which could be a contributing factor to her current presentation. Luis may or may not need SNF placement at time of DC. A: 78 y/o female admitted 08/04/18 with UTI. P: Return home with continued CFC high highest ASSEMBLER TYPE BAR AND SEGMENT's 2x/day vs. SNF placement. CM to continue to follow Luis throughout her stay. Luis is aware that [facility] has no beds available and that [facility] is continuing to review her information at this time. Luis would prefer to return home if possible.
--- NOTE | 2018-08-06 12:59 | CMPROGNOTE_ITS ---
- If Service Date Differs Date of service: 08/06/18 Time of Service: 12:56 Care Management Progress Note S/O: Luis is lying in bed this morning when this proposal writer visits. She is pleasant and open to discussion. CM reviewed discussion from yesterday in regards to DC plans. uLis states that she would like to be able to return home when she is medically ready. CM discussed referrals that were sent to [facility] and [facility] yesterday, at this time [facility] has no female beds available. Luis would like to hold off on any other referrals at this time. CM to continue to follow and support throughout stay. Per MD in morning meeting Luis has [place] Toxicity which could be a contributing factor to her current presentation. Luis may or may not need SNF placement at time of DC. A: 78 y/o female admitted 08/04/18 with UTI. P: Return home with continued CFC high highest OVAL OR CIRCULAR GLASS CUTTER's 2x/day vs. SNF placement. CM to continue to follow Luis throughout her stay. Luis is aware that [facility] has no beds available and that [facility] is continuing to review her information at this time. Luis would prefer to return home if possible.
--- NOTE | 2018-08-06 14:03 | PT.INTREAT ---
Date of service: 08/06/18 Time of Service: 14:03 PT Notes Inpatient Physical Therapy Treatment Note Date: 08/06/18 PRECAUTIONS: Fall SUBJECTIVE: Pt reports that she is tired this afternoon. OBJECTIVE: [] BED MOBILITY/TRANSFERS Pt scooted up in bed. GAIT THEREX: Pt refused getting out of bed this afternoon due to being too tired. Pt completed UE and LE strengthening as per flow sheet while in the supine position. Pt did require frequent rest periods due to fatigue. ASSESSMENT: Pt did seem to be very tired during her session. PLAN: Cont as per enzo as per PT POC. TREATMENT CODE/TIME: 1:35-1:50 (15) TP
[2018-08-06 16:00] VITALS: BP 128/70; PULSE 64; RESP 18; TEMP 36.5; O2SAT 91
--- NOTE | 2018-08-06 18:16 | W.PM.PROGNOT ---
Assessment and Plan (1) UTI (urinary tract infection): Current visit: Yes Status: Acute Present on admission, due to Klebsiella, sensitive to ceftriaxone Continue rocephin (2) [place] toxicity: Current visit: Yes Status: Acute Improving. Continue IVF (decrease rate). Monitor mental status. Hold lithium. (3) Toxic metabolic encephalopathy: Current visit: Yes Status: Acute Multifactorial, due to acute lithium toxicity as well as UTI and possible infectious diarrheal illness. Improved. Continue to hold lithium. (4) Bipolar 1 disorder: Current visit: No Status: Chronic [place] on hold due to above (5) Diabetes type 2, uncontrolled: Current visit: No Status: Chronic Continue SSI/accuchecks. Add levemir. (6) Diarrhea: Current visit: No Status: Chronic Appears to have resolved. Awaiting a stool sample. (7) Paroxysmal atrial fibrillation: Current visit: Yes Status: Acute Anticoagulation with eliquis. Rate controlled. (8) Bilateral pleural effusion: Current visit: Yes Status: Acute At this point, benefits of IV hydration given lithium toxicity outweight the risks, but will need to be followed closely - CXR tomorrow am (9) Lung mass: Current visit: Yes Status: Acute Will need outpatient biopsy - discussed with daughter. Subjective Interval history since last seen: Feels better. Denies dizziness, chest pain, shortness of breath, nausea, vomiting. Much less confused today. No more diarrhea noted. Exam Narrative Exam Narrative: General: Much more alert female, more interactive, laying in bed, not in acute distress. HEENT: EOMI, Dry MM Heart: RRR, no m/r/g Lungs: CTAB, comfortable GI: Abdomen soft, nontender, nondistended Extremities: no e/c/c BLE's. Objective Objective Clinical Data: Abnormal lab results 08/06/18 08/06/18 08/06/18 Range/Units 07:05 07:05 07:05 RBC 3.46 L (4.00-5.20) m/cumm Hgb 10.3 L (12.0-15.5) g/dL Hct 35.3 L (36.0-46.0) % MCV 102.0 H (80-95) fL MCHC 29.2 L (32.0-36.0) g/dL Absolute Lymphocytes 0.79 L (1.2-3.4) k/cumm Chloride 110 H (98-107) mmol/L BUN 27 H (7-18) mg/dL Creatinine 1.03 H (0.55-1.02) mg/dL Glucose 277 H (70-100) mg/dL [place] 1.31 H (0.60-1.20) mmol/L Vital Signs Temperature 36.5 C 08/06/18 16:00 Temperature Source Tympanic 08/06/18 16:00 Pulse 64 08/06/18 16:00 Pulse Rhythm Regular 08/06/18 07:55 Pulse 77 08/04/18 20:16 Respiratory Rate 18 08/06/18 16:00 Respiratory Effort 08/06/18 07:55 Respiratory Depth Normal 08/06/18 07:55 Respiratory Pattern Normal 08/06/18 07:55 Blood Pressure 128/70 08/06/18 16:00 Blood Pressure Mean 121 08/04/18 20:16 Blood Pressure Position Supine 08/04/18 18:09 Pulse Oximetry 91 L 08/06/18 16:00 Oxygen Delivery Method Room Air 08/06/18 16:00 Oxygen Flow Rate 0 08/06/18 16:00 Pain Level 0 08/06/18 16:00 Comment 08/06/18 07:45 Intake & Output 08/05/18 08/06/18 08/06/18 23:59 11:59 23:59 Intake Total 3106.667 / 3106.667 2315 / 2315 1000 / 1000 Output Total 700 / 700 650 / 650 Balance 2406.667 / 2406.667 1665 / 1665 1000 / 1000 Intake: IV 2026.667 / 2026.667 1825 / 1825 1000 / 1000 Oral 1080 / 1080 490 / 490 Output: Urine 700 / 700 650 / 650 Other: Urine Color Light Tanya Straw Urine Appearance Cloudy Clear Mucous Threads Urine Odor Strong None Voiding Methods Bedside Commode Bedside Commode Laboratory Results WBC 7.69 k/cumm (4.4-10.8) 08/06/18 07:05 RBC 3.46 m/cumm (4.00-5.20) L 08/06/18 07:05 Hgb 10.3 g/dL (12.0-15.5) L 08/06/18 07:05 Hct 35.3 % (36.0-46.0) L 08/06/18 07:05 MCV 102.0 fL (80-95) H 08/06/18 07:05 MCH 29.8 pg (27.0-33.0) 08/06/18 07:05 MCHC 29.2 g/dL (32.0-36.0) L 08/06/18 07:05 RDW 14.2 % (11.7-14.6) 08/06/18 07:05 Plt Count 231 x1000/uL (130-400) 08/06/18 07:05 MPV 9.8 fL (8.0-11.0) 08/06/18 07:05 Immature Gran % 0.7 08/06/18 07:05 Neutrophils % 76.5 08/06/18 07:05 Lymphocytes % 10.3 08/06/18 07:05 Monocytes % 9.0 08/06/18 07:05 Eosinophils % 3.4 08/06/18 07:05 Basophils % 0.1 08/06/18 07:05 Absolute Neutrophils 5.89 k/cumm (1.2-6.7) 08/06/18 07:05 Absolute Lymphocytes 0.79 k/cumm (1.2-3.4) L 08/06/18 07:05 Absolute Monocytes 0.69 k/cumm (0.11-0.7) 08/06/18 07:05 Absolute Eosinophils 0.26 k/cumm (0.0-0.7) 08/06/18 07:05 Absolute Basophils 0.01 k/cumm (0.0-0.2) 08/06/18 07:05 PT 13.0 sec (9.3-10.8) H 08/04/18 17:45 INR 1.3 (1.0-3.5) 08/04/18 17:45 APTT 28.5 sec (21.0-31.4) 08/04/18 17:45 VBG pH 7.37 (7.32-7.43) 08/04/18 17:45 VBG pCO2 38 mm/Hg (34-47) 08/04/18 17:45 VBG pO2 50 mm/Hg (28-44) H 08/04/18 17:45 VBG HCO3 22 mmol/L (22-28) 08/04/18 17:45 VBG Total CO2 20 mmol/L (22-29) L 08/04/18 17:45 VBG O2 Saturation 85 % (70-80) H 08/04/18 17:45 VBG Base Excess -3.3 mmol/L (-3-3) L 08/04/18 17:45 Sodium 139 mmol/L (136-145) 08/06/18 07:05 Potassium 4.7 mmol/L (3.5-5.1) 08/06/18 07:05 Chloride 110 mmol/L (98-107) H 08/06/18 07:05 Carbon Dioxide 22.7 mmol/L (21.0-32.0) 08/06/18 07:05 Anion Gap 6.3 mmol/L (3-11) 08/06/18 07:05 BUN 27 mg/dL (7-18) H 08/06/18 07:05 Creatinine 1.03 mg/dL (0.55-1.02) H 08/06/18 07:05 Estimated GFR/1.73 m2 51.69 (mL/min/1.73m2) 08/06/18 07:05 Glucose 277 mg/dL (70-100) H 08/06/18 07:05 Calcium 9.7 mg/dL (8.5-10.1) 08/06/18 07:05 Magnesium 1.8 mg/dL (1.8-2.4) 08/06/18 07:05 Total Bilirubin 0.8 mg/dL (0.2-1.0) 08/04/18 17:45 AST 36 U/L (15-37) 08/04/18 17:45 ALT 41 U/L (12-78) 08/04/18 17:45 Alkaline Phosphatase 182 U/L (46-116) H 08/04/18 17:45 Ammonia 26 umol/L (11-32) 08/04/18 17:45 Creatine Kinase 14 U/L (26-192) L 08/04/18 17:45 Troponin I 0.04 ng/mL (0.00-0.06) 08/04/18 17:45 Total Protein 7.0 g/dL (6.4-8.2) 08/04/18 17:45 Albumin 2.0 g/dL (3.4-5.0) L 08/04/18 17:45 TSH 1.03 uIU/mL (0.358-3.74) 08/04/18 17:45 Urine Color Yellow (Yellow) 08/04/18 18:30 Urine Clarity Cloudy 08/04/18 18:30 Urine pH 6.0 (5-8) 08/04/18 18:30 Ur Specific [place] 1.020 (1.005-1.025) 08/04/18 18:30 Urine Protein 100 mg/dL (Negative) H 08/04/18 18:30 Urine Ketones 15 mg/dL (Negative) H 08/04/18 18:30 Urine Blood Moderate (Negative) H 08/04/18 18:30 Urine Nitrite Negative (Negative) 08/04/18 18:30 Urine Bilirubin Small (Negative) H 08/04/18 18:30 Urine Urobilinogen 1.0 EU/dL (Up TO 0.2) H 08/04/18 18:30 Ur Leukocyte Esterase Small (Negative) H 08/04/18 18:30 Urine RBC >50 (0-2) H 08/04/18 18:30 Urine WBC >50 HPF (0-5) 08/04/18 18:30 Ur Epithelial Cells Rare HPF (Negative) 08/04/18 18:30 Urine Crystals Negative HPF (Negative) 08/04/18 18:30 Urine Bacteria Moderate HPF (Negative) 08/04/18 18:30 Urine Casts Negative LPF (Negative) 08/04/18 18:30 Urine Mucus Moderate (Negative) 08/04/18 18:30 Urine Other Negative (Negative) 08/04/18 18:30 Ur Culture Indicated? Yes 08/04/18 18:30 Urine Glucose Negative mg/dL (Negative) 08/04/18 18:30 [place] 1.31 mmol/L (0.60-1.20) H 08/06/18 07:05
[2018-08-06 23:24] VITALS: BP 167/71; PULSE 71; RESP 16; TEMP 36.5; O2SAT 96
[2018-08-07] MEDS: Levothyroxine 100 MCG TAB PO (05:52)
[2018-08-07] MEDS: Normal Saline 1,000 ML 75 ML IV ×2 (06:29→18:34)
--- NOTE | 2018-08-07 07:28 | DI.RAD_ITS ---
SYMPTOM/DIAGNOSIS: F/U PLEURAL EFFUSION PORTABLE AP CHEST: Comparison is made with 08/06/18. There has been no significant change in the bilateral pleural effusions, left greater than right. The lungs are again expiratory. No new abnormalities are seen.
[2018-08-07 07:41] LABS: ALT 32 U/L (12-78); AST 19 U/L (15-37); Albumin 1.6 g/dL (3.4-5.0); Alkaline Phosphatase 187 U/L (46-116); Anion Gap 6.9 mmol/L (3-11); BUN 21 mg/dL (7-18); Bilirubin, Total 0.2 mg/dL (0.2-1.0); CO2 21.1 mmol/L (21.0-32.0); CREATININE 0.96 mg/dL (0.55-1.02); Chloride 113 mmol/L (98-107); Estimated GFR 56.06 (mL/min/1.73m2); Glucose 317 mg/dL (70-100); Magnesium 1.9 mg/dL (1.8-2.4); Potassium 4.7 mmol/L (3.5-5.1); Sodium 141 mmol/L (136-145); Total Protein 6.2 g/dL (6.4-8.2)
[2018-08-07 07:45] VITALS: O2SAT 94
[2018-08-07 07:50] VITALS: BP 142/88; PULSE 84; RESP 22; TEMP 37.2; O2SAT 93
[2018-08-07 07:59] LABS: Bilirubin, Direct 0.09 mg/dL (0.00-0.20)
[2018-08-07 08:02] LABS: Lithium 1.04 mmol/L (0.60-1.20)
[2018-08-07] MEDS: Insulin Aspart 300 UNITS/3 ML PEN SC ×3 (08:34→17:28)
[2018-08-07] MEDS: Apixaban 5 MG TAB PO ×2 (08:34→19:43)
--- NOTE | 2018-08-07 08:55 | PT.INTREAT ---
Date of service: 08/07/18 Time of Service: 08:55 PT Notes Inpatient Physical Therapy Treatment Note Date: 08/07/18 PRECAUTIONS: Fall SUBJECTIVE: Luis states that she did not sleep well again last night, so she is very tired today. OBJECTIVE: PAIN: No c/o pain BED MOBILITY/TRANSFERS Supine-sit: S with HOB at 30 degrees Sit-stand: SBA Stand-sit: SBA Bed-Chair: CGA GAIT Assistive Device: FWW Weight bearing: Full Assist: CGA Distance: 10' THEREX: Patient completed a LE strengthening program, as per flow sheet. Patient requires skilled cueing for proper exercise performance. ASSESSMENT: Patient tolerated session with complaints of increased fatigue. Patient was limited in her gait training due to fatigue this morning. She would benefit from continued gait and transfer training as well as strengthening for improved ability to perform functional daily tasks. PLAN: Continue with PT's POC TREATMENT CODE/TIME: 25 minutes; TA/TP
--- NOTE | 2018-08-07 11:00 | PDOC.CMPRO ---
- If Service Date Differs Date of service: 08/07/18 Time of Service: 11:00 Care Management Progress Note S/O: Luis is sitting up in bed when this news writer visits this morning. She is pleasant and receptive to discussion. Luis states that she is tired this morning, and had a difficult time sleeping overnight. Luis continues to identify that her preference would be to return home when medically ready. Per morning meeting Luis may require a SNF placement and referrals have been sent to [facility] and [facility] which Luis states are the only facilities she will consider at this time. There are no beds available at either facility. Luis is hopeful that she will be able to return home after her admission with continued CFC services. A: 78 y/o female admitted 08/04/18 with UTI. P: Return home with continued CFC high highest ACTIVITIES AIDE's 2x/day vs. SNF placement. CM to continue to follow uLis throughout her stay. Luis is aware that [facility] and [facility] has no beds. Luis would prefer to return home if possible.
--- NOTE | 2018-08-07 11:24 | CMPROGNOTE_ITS ---
- If Service Date Differs Date of service: 08/07/18 Time of Service: 11:00 Care Management Progress Note S/O: Luis is sitting up in bed when this report writer visits this morning. She is pleasant and receptive to discussion. Luis states that she is tired this morning , and had a difficult time sleeping overnight. Luis continues to identify that her preference would be to return home when medically ready. Per morning meeting Luis may require a SNF placement and referrals have been sent to [facility] and [facility] which Luis states are the only facilities she will consider at this time. There are no beds available at either facility. Luis is hopeful that she will be able to return home after her admission with continued CFC services. A: 78 y/o female admitted 08/04/18 with UTI. P: Return home with continued CFC high highest C[employer] FORMING MACHINE OPERATOR's 2x/day vs. SNF placement. CM to continue to follow Luis throughout her stay. Luis is aware that [facility] and [facility] has no beds. Luis would prefer to return home if possible.
--- NOTE | 2018-08-07 11:28 | OT.INNT ---
Date of service: 08/07/18 Time of Service: 09:30 Occupational Therapy Notes 08/07/18 Pt denied OT consult stating that she was too tired and that she wanted to get back into bed and not do anything else. OT explained that services could be performed in bed, pt states that she was not up to it. Teena Li, OTR/L
--- NOTE | 2018-08-07 12:29 | POCOE_ITS ---
Date of service: 08/07/18 Time of Service: 12:13 History of Present Illness Narrative: 78-year-old female is seen at bedside for evaluation and management of diabetic foot complications including hypertrophy of toenails, hypertrophic calluses with a history of foot ulceration. She is a poorly controlled diabetic who has had multiple digits removed due to complications. She was recently admitted for diarrhea, dehydration, and deconditioning amongst multiple other comorbidities. Past medical history is remarkable for cholelithiasis without obstruction, insomnia, peripheral neuropathy, obesity, A. fib, breast cancer, history of pulmonary embolism with infarction, hypothyroidism, hyperparathyroidism, hyperlipidemia, diabetes mellitus, depression, lung mass, toxic metabolic encephalopathy, UTI ON LICENSE OF [facility] Social History Smoking/Tobacco Use Status: Never Surgical History Amputation (01/08/11) Biopsy of breast Cholecystectomy Correction, [place] (04/20/03) Debridement Ulcer (08/27/00) Debridement Ulcer (04/06/12) Debridement Ulcer (04/09/12) Fracture, Open Treatment Incision & Drainage, Abscess or Hematoma (03/16/04) Lobectomy Parathyroidectomy Exam Narrative Exam Narrative: Luis is seen at bedside. She is cooperative although clearly confused. Peripheral pulses are poorly palpated at the ankle, skin is cool to the touch. No peripheral edema was noted. Pedal hair is absent. Skin is somewhat thin and dry with hypertrophic callus formation noted under the right second and left second and third metatarsal heads. Significant fat pad atrophy is appreciated. Plantar prominence of the metatarsal heads are easily palpable through the skin. No gross inflammatory changes were observed no ecchymosis deep within the callus material was noted at this time. The skin around the heels showed some chronic changes with mild hypertrophy but no open areas or hemorrhagic changes observed. The toenails were discolored, hypertrophic and reportedly debrided approximately a month ago. No drainage or secondary signs of infection were noted. Muscle groups are 5 out of 5 bilaterally but she is significantly deconditioned. Family members indicate that she was up using a walker short distances in the house but over the last few weeks has been confined mostly to her wheelchair. 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 The remaining toes bilaterally are markedly contracted with degenerative arthritic changes observed. Fortunately no open wounds were noted. No joint inflammatory changes observed. The midfoot and rear foot joints were otherwise grossly benign at this time. Neurologically he is densely neuropathic bilaterally secondary to her diabetes. Toes were downgoing. Impressions: Poorly controlled diabetic with peripheral neuropathy at risk for complications on her feet Metatarsalgia with reactive IP K formations as stated above at risk for ulceration Peripheral arterial disease, no signs of ischemia Onychomycosis with onychogryphosis Plan: 1. Sharply debrided all keratotic formations utilizing a #10 scalpel atraumatically to patient tolerance. 2. Reduce the kyphotic toenails atraumatically for patient comfort 3. Recommend daily application of moisturizing cream to improve skin turgor 4. Recommend she wear her diabetic shoes with multi-density insoles when ambulating Thank you for the consultation. Results Last Vital Signs Temp 37.2 C 08/07/18 07:50 Pulse 84 08/07/18 07:50 Resp 22 08/07/18 07:50 BP 142/88 H 08/07/18 07:50 Pulse Ox 93 L 08/07/18 07:50 Labs : 08/06/18 07:05 08/07/18 06:40 Laboratory Results - last 24 hr 08/07/18 08/07/18 06:40 06:40 Sodium 141 Potassium 4.7 Chloride 113 H Carbon Dioxide 21.1 Anion Gap 6.9 BUN 21 H D Creatinine 0.96 Estimated GFR/1.73 m2 56.06 Glucose 317 H Calcium 9.0 Magnesium 1.9 Total Bilirubin 0.2 Conjugated Bilirubin 0.09 AST 19 ALT 32 Alkaline Phosphatase 187 H Total Protein 6.2 L Albumin 1.6 L [place] 1.04
--- NOTE | 2018-08-07 15:31 | PT.INTREAT ---
Date of service: 08/07/18 Time of Service: 15:31 PT Notes Inpatient Physical Therapy Treatment Note Date: 08/07/18 PRECAUTIONS:Fall SUBJECTIVE: Luis is agreeable to working with PT, although admits that she is confused. She continues to report that she hasn't gotten any rest or sleep. OBJECTIVE: PAIN: No c/o pain BED MOBILITY/TRANSFERS Supine-sit: S with HOB at 40 degrees Sit-stand: SBA Stand-sit: SBA GAIT Assistive Device: FWW Weight bearing: Full Assist: CGA Distance: 30' Deviation: Slow pace ASSESSMENT: Patient tolerated session with complaints of increased fatigue following gait training. Patient would benefit from continued strengthening and gait and transfer training to improve ability to perform these functional tasks at a more independent level. PLAN: Continue with PT's POC TREATMENT CODE/TIME: 20 minutes; TA
[2018-08-07 16:35] VITALS: BP 126/74; PULSE 80; RESP 20; TEMP 37.1; O2SAT 93
--- NOTE | 2018-08-07 19:45 | PGE_ITS ---
Assessment and Plan (1) UTI (urinary tract infection): Current visit: Yes Status: Acute Present on admission, due to Klebsiella, sensitive to ceftriaxone Continue rocephin (2) [place] toxicity: Current visit: Yes Status: Acute Improving. Patient's usual lithium levels are in the 0.7 - 0.8 range, so some of her confusion is likely still from toxicity. Continue IVF through tomorrow. Monitor mental status. Hold lithium. (3) Toxic metabolic encephalopathy: Current visit: Yes Status: Acute Multifactorial, due to acute lithium toxicity as well as UTI and possible infectious diarrheal illness. Improved. Continue to hold lithium. If mental status does not improve with normalization of lithium level and treatment of UTI, would think about getting an MRI of the brain to r/o brain met from the lung mass. (4) Bipolar 1 disorder: Current visit: No Status: Chronic [place] on hold due to above (5) Diabetes type 2, uncontrolled: Current visit: No Status: Chronic Continue SSI/accuchecks. Increase levemir (6) Diarrhea: Current visit: No Status: Chronic Resolved, etiology unclear. (7) Paroxysmal atrial fibrillation: Current visit: Yes Status: Acute Continue Anticoagulation with eliquis. Rate controlled. (8) Bilateral pleural effusion: Current visit: Yes Status: Acute At this point, benefits of IV hydration given lithium toxicity outweight the risks; on CXR, effusions are unchanged. (9) Lung mass: Current visit: Yes Status: Acute Will need outpatient biopsy - discussed with daughter. Subjective Interval history since last seen: The patient is more alert today, but remains confused. She denies dizziness, chest pain, shortness of breath, nausea, vomiting, or pain of any kind. Interestingly, she still seems to think she is having diarrhea - and she has had none for the last 3 days. Exam Narrative Exam Narrative: General: Much more alert female, more interactive, sitting in a chair HEENT: EOMI, Moist MM Heart: RRR, no m/r/g Lungs: CTAB, comfortable GI: Abdomen soft, nontender, nondistended Extremities: no e/c/c BLE's. Objective Objective Clinical Data: Abnormal lab results 08/07/18 Range/Units 06:40 Chloride 113 H (98-107) mmol/L BUN 21 H D (7-18) mg/dL Glucose 317 H (70-100) mg/dL Alkaline Phosphatase 187 H (46-116) U/L Total Protein 6.2 L (6.4-8.2) g/dL Albumin 1.6 L (3.4-5.0) g/dL Vital Signs Temperature 37.1 C 08/07/18 16:35 Temperature Source Tympanic 08/07/18 16:35 Pulse 80 08/07/18 16:35 Pulse Rhythm Regular 08/07/18 08:35 Pulse 77 08/04/18 20:16 Respiratory Rate 20 08/07/18 16:35 Respiratory Effort Non-Labored 08/07/18 08:35 Respiratory Depth Normal 08/07/18 08:35 Respiratory Pattern Normal 08/07/18 08:35 Blood Pressure 126/74 08/07/18 16:35 Blood Pressure Mean 121 08/04/18 20:16 Blood Pressure Position Supine 08/04/18 18:09 Pulse Oximetry 93 L 08/07/18 16:35 Oxygen Delivery Method Room Air 08/07/18 16:35 Oxygen Flow Rate 0 08/07/18 16:35 Pain Level 0 08/07/18 16:35 Comment 08/06/18 07:45 Intake & Output 08/06/18 08/07/18 08/07/18 23:59 11:59 23:59 Intake Total 1382.5 / 1382.5 240 / 240 1041.25 / 1041.25 Output Total 350 / 350 450 / 450 Balance 1382.5 / 1382.5 -110 / -110 591.25 / 591.25 Intake: IV 1142.5 / 1142.5 906.25 / 906.25 Oral 240 / 240 240 / 240 135 / 135 Output: Urine 350 / 350 450 / 450 Other: Urine Color Straw Yellow Urine Appearance Clear Clear Urine Odor None None Comment pt incontinent of large amounts of urine. patient incontinent of moderate amount in brief Voiding Methods Bedside Commode Bedside Commode Laboratory Results WBC 7.69 k/cumm (4.4-10.8) 08/06/18 07:05 RBC 3.46 m/cumm (4.00-5.20) L 08/06/18 07:05 Hgb 10.3 g/dL (12.0-15.5) L 08/06/18 07:05 Hct 35.3 % (36.0-46.0) L 08/06/18 07:05 MCV 102.0 fL (80-95) H 08/06/18 07:05 MCH 29.8 pg (27.0-33.0) 08/06/18 07:05 MCHC 29.2 g/dL (32.0-36.0) L 08/06/18 07:05 RDW 14.2 % (11.7-14.6) 08/06/18 07:05 Plt Count 231 x1000/uL (130-400) 08/06/18 07:05 MPV 9.8 fL (8.0-11.0) 08/06/18 07:05 Immature Gran % 0.7 08/06/18 07:05 Neutrophils % 76.5 08/06/18 07:05 Lymphocytes % 10.3 08/06/18 07:05 Monocytes % 9.0 08/06/18 07:05 Eosinophils % 3.4 08/06/18 07:05 Basophils % 0.1 08/06/18 07:05 Absolute Neutrophils 5.89 k/cumm (1.2-6.7) 08/06/18 07:05 Absolute Lymphocytes 0.79 k/cumm (1.2-3.4) L 08/06/18 07:05 Absolute Monocytes 0.69 k/cumm (0.11-0.7) 08/06/18 07:05 Absolute Eosinophils 0.26 k/cumm (0.0-0.7) 08/06/18 07:05 Absolute Basophils 0.01 k/cumm (0.0-0.2) 08/06/18 07:05 PT 13.0 sec (9.3-10.8) H 08/04/18 17:45 INR 1.3 (1.0-3.5) 08/04/18 17:45 APTT 28.5 sec (21.0-31.4) 08/04/18 17:45 VBG pH 7.37 (7.32-7.43) 08/04/18 17:45 VBG pCO2 38 mm/Hg (34-47) 08/04/18 17:45 VBG pO2 50 mm/Hg (28-44) H 08/04/18 17:45 VBG HCO3 22 mmol/L (22-28) 08/04/18 17:45 VBG Total CO2 20 mmol/L (22-29) L 08/04/18 17:45 VBG O2 Saturation 85 % (70-80) H 08/04/18 17:45 VBG Base Excess -3.3 mmol/L (-3-3) L 08/04/18 17:45 Sodium 141 mmol/L (136-145) 08/07/18 06:40 Potassium 4.7 mmol/L (3.5-5.1) 08/07/18 06:40 Chloride 113 mmol/L (98-107) H 08/07/18 06:40 Carbon Dioxide 21.1 mmol/L (21.0-32.0) 08/07/18 06:40 Anion Gap 6.9 mmol/L (3-11) 08/07/18 06:40 BUN 21 mg/dL (7-18) H D 08/07/18 06:40 Creatinine 0.96 mg/dL (0.55-1.02) 08/07/18 06:40 Estimated GFR/1.73 m2 56.06 (mL/min/1.73m2) 08/07/18 06:40 Glucose 317 mg/dL (70-100) H 08/07/18 06:40 Calcium 9.0 mg/dL (8.5-10.1) 08/07/18 06:40 Magnesium 1.9 mg/dL (1.8-2.4) 08/07/18 06:40 Total Bilirubin 0.2 mg/dL (0.2-1.0) 08/07/18 06:40 Conjugated Bilirubin 0.09 mg/dL (0.00-0.20) 08/07/18 06:40 AST 19 U/L (15-37) 08/07/18 06:40 ALT 32 U/L (12-78) 08/07/18 06:40 Alkaline Phosphatase 187 U/L (46-116) H 08/07/18 06:40 Ammonia 26 umol/L (11-32) 08/04/18 17:45 Creatine Kinase 14 U/L (26-192) L 08/04/18 17:45 Troponin I 0.04 ng/mL (0.00-0.06) 08/04/18 17:45 Total Protein 6.2 g/dL (6.4-8.2) L 08/07/18 06:40 Albumin 1.6 g/dL (3.4-5.0) L 08/07/18 06:40 TSH 1.03 uIU/mL (0.358-3.74) 08/04/18 17:45 Urine Color Yellow (Yellow) 08/04/18 18:30 Urine Clarity Cloudy 08/04/18 18:30 Urine pH 6.0 (5-8) 08/04/18 18:30 Ur Specific [place] 1.020 (1.005-1.025) 08/04/18 18:30 Urine Protein 100 mg/dL (Negative) H 08/04/18 18:30 Urine Ketones 15 mg/dL (Negative) H 08/04/18 18:30 Urine Blood Moderate (Negative) H 08/04/18 18:30 Urine Nitrite Negative (Negative) 08/04/18 18:30 Urine Bilirubin Small (Negative) H 08/04/18 18:30 Urine Urobilinogen 1.0 EU/dL (Up TO 0.2) H 08/04/18 18:30 Ur Leukocyte Esterase Small (Negative) H 08/04/18 18:30 Urine RBC >50 (0-2) H 08/04/18 18:30 Urine WBC >50 HPF (0-5) 08/04/18 18:30 Ur Epithelial Cells Rare HPF (Negative) 08/04/18 18:30 Urine Crystals Negative HPF (Negative) 08/04/18 18:30 Urine Bacteria Moderate HPF (Negative) 08/04/18 18:30 Urine Casts Negative LPF (Negative) 08/04/18 18:30 Urine Mucus Moderate (Negative) 08/04/18 18:30 Urine Other Negative (Negative) 08/04/18 18:30 Ur Culture Indicated? Yes 08/04/18 18:30 Urine Glucose Negative mg/dL (Negative) 08/04/18 18:30 [place] 1.04 mmol/L (0.60-1.20) 08/07/18 06:40
[2018-08-07] MEDS: traZODone 50 MG TAB PO (21:32)
[2018-08-08 00:54] VITALS: BP 141/78; PULSE 82; RESP 20; TEMP 36.4; O2SAT 92
[2018-08-08] MEDS: Levothyroxine 100 MCG TAB PO (06:41)
[2018-08-08 07:01] LABS: HCT 36.3 % (36.0-46.0); HGB 10.7 g/dL (12.0-15.5); Mean Corp. HGB Concentration 29.5 g/dL (32.0-36.0); Mean Corpuscular Hemoglobin 29.8 pg (27.0-33.0); Mean Corpuscular Volume 101.1 fL (80-95); Mean Platelet Volume 10.1 fL (8.0-11.0); Platelet Count 277 x1000/uL (130-400); RBC 3.59 m/cumm (4.00-5.20); RBC Distribution Width 14.1 % (11.7-14.6); White Blood Cell Count 7.35 k/cumm (4.4-10.8)
[2018-08-08 07:20] LABS: Anion Gap 9.2 mmol/L (3-11); BUN 15 mg/dL (7-18); CO2 19.8 mmol/L (21.0-32.0); CREATININE 0.83 mg/dL (0.55-1.02); Calcium 9.3 mg/dL (8.5-10.1); Chloride 115 mmol/L (98-107); Glucose 246 mg/dL (70-100); Magnesium 1.6 mg/dL (1.8-2.4); Potassium 4.1 mmol/L (3.5-5.1); Sodium 144 mmol/L (136-145)
[2018-08-08 07:39] VITALS: BP 157/84; PULSE 84; RESP 19; TEMP 36.1; O2SAT 93
[2018-08-08 07:40] LABS: Lithium 0.85 mmol/L (0.60-1.20)
[2018-08-08] MEDS: Normal Saline 1,000 ML 75 ML IV (07:59)
[2018-08-08] MEDS: Apixaban 5 MG TAB PO ×2 (08:07→20:22)
[2018-08-08] MEDS: Insulin Aspart 300 UNITS/3 ML PEN SC ×3 (08:07→17:15)
[2018-08-08] MEDS: SODIUM CHLORIDE 0.45% 1,000 ML 75 ML IV (08:34)
[2018-08-08] MEDS: MAGNESIUM SULFATE 2 GM/50 ML BAG IVPB (08:38)
[2018-08-08] MEDS: Lithium Carbonate 150 MG CAP PO (11:41)
--- NOTE | 2018-08-08 13:12 | PT.INTREAT ---
Date of service: 08/08/18 Time of Service: 10:35 PT Notes Inpatient Physical Therapy Treatment Note Date: 08/08/18 SUBJECTIVE: I really don't want to do anything right now. OBJECTIVE: [] BED MOBILITY/TRANSFERS Sit-stand: attempted, however Luis refused to cooperate. THEREX:performed a global LE strength and stabilization routine. See flowsheet for details. ASSESSMENT: tolerated session well. C/o being cold and refuses to get out of her chair. Multiple attempts to coax her. She was agreeable to ex, although required frequent cues to keep her going. She seemed very confused, and sleepy this AM. PLAN: will continue to progress to tolerance. TREATMENT CODE/TIME: 12 min TPx1.
--- NOTE | 2018-08-08 16:02 | PDOC.CMPRO ---
- If Service Date Differs Date of service: 08/08/18 Time of Service: 16:02 Care Management Progress Note S/O: CM into meet with patient she is sleeping when CM attempts visit. No change in patients status today her lithium levels are trending down. Referrals pending at area SNF[facility] [place] declined Pt. Pt would prefer to return home with CFC per report. A: 78 y/o female admitted 08/04/18 with UTI. P: No change in Luis's status today she continues to receive IV antibiotic for UTI. Return home with continued CFC high highest [employer] OFFICER's 2x/day vs. SNF placement. CM to continue to follow Luis throughout her stay and provide support discharge planning and disposition.
--- NOTE | 2018-08-08 16:05 | CMPROGNOTE_ITS ---
- If Service Date Differs Date of service: 08/08/18 Time of Service: 16:02 Care Management Progress Note S/O: CM into meet with patient she is sleeping when CM attempts visit. No change in patients status today her lithium levels are trending down. Referrals pending at area SNF's [place] declined Pt. Pt would prefer to return home with CFC per report. A: 78 y/o female admitted 08/04/18 with UTI. P: No change in Luis's status today she continues to receive IV antibiotic for UTI. Return home with continued CFC high highest [employer] WORKER's 2x/day vs. SNF placement. CM to continue to follow Luis throughout her stay and provide support discharge planning and disposition.
[2018-08-08 16:07] VITALS: BP 148/76; PULSE 74; RESP 18; TEMP 36.6; O2SAT 97
--- NOTE | 2018-08-08 18:32 | W.PM.PROGNOT ---
Assessment and Plan (1) UTI (urinary tract infection): Current visit: Yes Status: Acute Urine Culture with Klebsiella resistant to Ampicillin only - Remains on Ceftriaxone, Day #3. (2) [place] toxicity: Current visit: Yes Status: Acute Levels normal again. Restart [place] at reduced dose (although patient was at minimal dosing at baseline). Monitor lithium levels closely. (3) Toxic metabolic encephalopathy: Current visit: Yes Status: Acute Multifactorial, due to acute lithium toxicity as well as UTI and possible infectious diarrheal illness. Improved but not yet at baseline. Continue to treat UTI and hydration. Consider MRI brain if not improving. TSH checked and normal. Initial CT Head limited but without definitive acute intracranial process. No evidence of acidosis, uremia, hypoxia, dehydration, or other infection outside of above mentioned UTI. Electrolytes normal. CXR with b/l L>R pleural effusions, but no clear infiltrates. (4) Bipolar 1 disorder: Current visit: No Status: Chronic Restart [place] as above. (5) Diabetes type 2, uncontrolled: Current visit: No Status: Chronic Continue increased dose basal insulin. Also on sliding scale coverage, ADA diet. (6) Diarrhea: Current visit: No Status: Chronic Resolved, etiology unclear. (7) Paroxysmal atrial fibrillation: Current visit: Yes Status: Acute Continue Anticoagulation with eliquis. Rate controlled without rochelle agents. (8) Bilateral pleural effusion: Current visit: Yes Status: Acute Effusions are unchanged by imaging. (9) Lung mass: Current visit: Yes Status: Acute Will need outpatient biopsy - discussion with daughter by prior provider. Also with an anterior mediastinal mass by recent CT Chest. Subjective Interval history since last seen: 78-year-old woman with past medical history significant for Bipolar disorder, admitted from [facility] ED on 08/04/2018 with a diagnosis of [place] toxicity. Mrs. Sharma presented to the emergency room with a reported 1 month history of diarrhea along with several days of lethargy. Initial evaluation of note was for evidence of a UTI with pyuria, but [place] levels checked also returned elevated. Patient was noted to be somewhat somnolent and with acutely altered mental status. Today the patient appears more alert but remains confused. Her lithium levels remain normal, and now in the low normal range. No diarrhea has been reported. No overnight events. Patient remains afebrile. Exam Narrative Exam Narrative: General: Sitting up in bed, appears comfortable and in no acute distress. Awake, alert, Oriented to person only. Neck: Supple. Heart: RRR, no m/r/g Lungs: CTAB, without crackles, rhonchi, or wheezing. GI: + BS, Abdomen soft, nontender, nondistended Extremities: Mild b/l LE edema. Objective Objective Clinical Data: Abnormal lab results 08/08/18 08/08/18 Range/Units 06:10 06:10 RBC 3.59 L (4.00-5.20) m/cumm Hgb 10.7 L (12.0-15.5) g/dL MCV 101.1 H (80-95) fL MCHC 29.5 L (32.0-36.0) g/dL Chloride 115 H (98-107) mmol/L Carbon Dioxide 19.8 L (21.0-32.0) mmol/L Glucose 246 H (70-100) mg/dL Magnesium 1.6 L (1.8-2.4) mg/dL Vital Signs Temperature 36.6 C 08/08/18 16:07 Temperature Source Tympanic 08/08/18 16:07 Pulse 74 08/08/18 16:07 Pulse Rhythm Regular 08/08/18 15:31 Pulse 77 08/04/18 20:16 Respiratory Rate 18 08/08/18 16:07 Respiratory Effort 08/08/18 15:31 Respiratory Depth Normal 08/08/18 15:31 Respiratory Pattern Normal 08/08/18 15:31 Blood Pressure 148/76 H 08/08/18 16:07 Blood Pressure Mean 121 08/04/18 20:16 Blood Pressure Position Supine 08/04/18 18:09 Pulse Oximetry 97 08/08/18 16:07 Oxygen Delivery Method Room Air 08/08/18 16:07 Oxygen Flow Rate 0 08/08/18 16:07 Pain Level 0 08/08/18 07:39 Comment 08/06/18 07:45 Intake & Output 08/07/18 08/08/18 08/08/18 23:59 11:59 23:59 Intake Total 1091.25 / 1091.25 1495 / 1495 220 / 220 Output Total 450 / 450 400 / 400 Balance 641.25 / 641.25 1495 / 1495 -180 / -180 Intake: IV 956.25 / 956.25 1045 / 1045 Oral 135 / 135 450 / 450 220 / 220 Output: Urine 450 / 450 400 / 400 Other: Urine Color Yellow Yellow Urine Appearance Clear Clear Urine Odor None Normal Comment urine mixed with stool. Stool Size Large Stool Characteristics Soft Brown Voiding Methods Bedside Commode Bedside Commode Laboratory Results WBC 7.35 k/cumm (4.4-10.8) 08/08/18 06:10 RBC 3.59 m/cumm (4.00-5.20) L 08/08/18 06:10 Hgb 10.7 g/dL (12.0-15.5) L 08/08/18 06:10 Hct 36.3 % (36.0-46.0) 08/08/18 06:10 MCV 101.1 fL (80-95) H 08/08/18 06:10 MCH 29.8 pg (27.0-33.0) 08/08/18 06:10 MCHC 29.5 g/dL (32.0-36.0) L 08/08/18 06:10 RDW 14.1 % (11.7-14.6) 08/08/18 06:10 Plt Count 277 x1000/uL (130-400) 08/08/18 06:10 MPV 10.1 fL (8.0-11.0) 08/08/18 06:10 Immature Gran % 0.7 08/06/18 07:05 Neutrophils % 76.5 08/06/18 07:05 Lymphocytes % 10.3 08/06/18 07:05 Monocytes % 9.0 08/06/18 07:05 Eosinophils % 3.4 08/06/18 07:05 Basophils % 0.1 08/06/18 07:05 Absolute Neutrophils 5.89 k/cumm (1.2-6.7) 08/06/18 07:05 Absolute Lymphocytes 0.79 k/cumm (1.2-3.4) L 08/06/18 07:05 Absolute Monocytes 0.69 k/cumm (0.11-0.7) 08/06/18 07:05 Absolute Eosinophils 0.26 k/cumm (0.0-0.7) 08/06/18 07:05 Absolute Basophils 0.01 k/cumm (0.0-0.2) 08/06/18 07:05 PT 13.0 sec (9.3-10.8) H 08/04/18 17:45 INR 1.3 (1.0-3.5) 08/04/18 17:45 APTT 28.5 sec (21.0-31.4) 08/04/18 17:45 VBG pH 7.37 (7.32-7.43) 08/04/18 17:45 VBG pCO2 38 mm/Hg (34-47) 08/04/18 17:45 VBG pO2 50 mm/Hg (28-44) H 08/04/18 17:45 VBG HCO3 22 mmol/L (22-28) 08/04/18 17:45 VBG Total CO2 20 mmol/L (22-29) L 08/04/18 17:45 VBG O2 Saturation 85 % (70-80) H 08/04/18 17:45 VBG Base Excess -3.3 mmol/L (-3-3) L 08/04/18 17:45 Sodium 144 mmol/L (136-145) 08/08/18 06:10 Potassium 4.1 mmol/L (3.5-5.1) 08/08/18 06:10 Chloride 115 mmol/L (98-107) H 08/08/18 06:10 Carbon Dioxide 19.8 mmol/L (21.0-32.0) L 08/08/18 06:10 Anion Gap 9.2 mmol/L (3-11) 08/08/18 06:10 BUN 15 mg/dL (7-18) D 08/08/18 06:10 Creatinine 0.83 mg/dL (0.55-1.02) 08/08/18 06:10 Estimated GFR/1.73 m2 >= 60.00 (mL/min/1.73m2) 08/08/18 06:10 Glucose 246 mg/dL (70-100) H 08/08/18 06:10 Calcium 9.3 mg/dL (8.5-10.1) 08/08/18 06:10 Magnesium 1.6 mg/dL (1.8-2.4) L 08/08/18 06:10 Total Bilirubin 0.2 mg/dL (0.2-1.0) 08/07/18 06:40 Conjugated Bilirubin 0.09 mg/dL (0.00-0.20) 08/07/18 06:40 AST 19 U/L (15-37) 08/07/18 06:40 ALT 32 U/L (12-78) 08/07/18 06:40 Alkaline Phosphatase 187 U/L (46-116) H 08/07/18 06:40 Ammonia 26 umol/L (11-32) 08/04/18 17:45 Creatine Kinase 14 U/L (26-192) L 08/04/18 17:45 Troponin I 0.04 ng/mL (0.00-0.06) 08/04/18 17:45 Total Protein 6.2 g/dL (6.4-8.2) L 08/07/18 06:40 Albumin 1.6 g/dL (3.4-5.0) L 08/07/18 06:40 TSH 1.03 uIU/mL (0.358-3.74) 08/04/18 17:45 Urine Color Yellow (Yellow) 08/04/18 18:30 Urine Clarity Cloudy 08/04/18 18:30 Urine pH 6.0 (5-8) 08/04/18 18:30 Ur Specific [place] 1.020 (1.005-1.025) 08/04/18 18:30 Urine Protein 100 mg/dL (Negative) H 08/04/18 18:30 Urine Ketones 15 mg/dL (Negative) H 08/04/18 18:30 Urine Blood Moderate (Negative) H 08/04/18 18:30 Urine Nitrite Negative (Negative) 08/04/18 18:30 Urine Bilirubin Small (Negative) H 08/04/18 18:30 Urine Urobilinogen 1.0 EU/dL (Up TO 0.2) H 08/04/18 18:30 Ur Leukocyte Esterase Small (Negative) H 08/04/18 18:30 Urine RBC >50 (0-2) H 08/04/18 18:30 Urine WBC >50 HPF (0-5) 08/04/18 18:30 Ur Epithelial Cells Rare HPF (Negative) 08/04/18 18:30 Urine Crystals Negative HPF (Negative) 08/04/18 18:30 Urine Bacteria Moderate HPF (Negative) 08/04/18 18:30 Urine Casts Negative LPF (Negative) 08/04/18 18:30 Urine Mucus Moderate (Negative) 08/04/18 18:30 Urine Other Negative (Negative) 08/04/18 18:30 Ur Culture Indicated? Yes 08/04/18 18:30 Urine Glucose Negative mg/dL (Negative) 08/04/18 18:30 Stool Campylobacter PCR Cancelled 08/04/18 Unknown Stool Salmonella PCR Cancelled 08/04/18 Unknown Stool Shigella PCR Cancelled 08/04/18 Unknown [place] 0.85 mmol/L (0.60-1.20) 08/08/18 06:10 Shiga Toxin (PCR) Cancelled 08/04/18 Unknown
--- NOTE | 2018-08-08 18:49 | PGE_ITS ---
Assessment and Plan (1) UTI (urinary tract infection): Current visit: Yes Status: Acute Urine Culture with Klebsiella resistant to Ampicillin only - Remains on Ceftriaxone, Day #3. (2) [place] toxicity: Current visit: Yes Status: Acute Levels normal again. Restart [place] at reduced dose (although patient was at minimal dosing at baseline). Monitor lithium levels closely. (3) Toxic metabolic encephalopathy: Current visit: Yes Status: Acute Multifactorial, due to acute lithium toxicity as well as UTI and possible infectious diarrheal illness. Improved but not yet at baseline. Continue to treat UTI and hydration. Consider MRI brain if not improving. TSH checked and normal. Initial CT Head limited but without definitive acute intracranial process. No evidence of acidosis, uremia, hypoxia, dehydration, or other infection outside of above mentioned UTI. Electrolytes normal. CXR with b/ l L>R pleural effusions, but no clear infiltrates. (4) Bipolar 1 disorder: Current visit: No Status: Chronic Restart [place] as above. (5) Diabetes type 2, uncontrolled: Current visit: No Status: Chronic Continue increased dose basal insulin. Also on sliding scale coverage, ADA diet. (6) Diarrhea: Current visit: No Status: Chronic Resolved, etiology unclear. (7) Paroxysmal atrial fibrillation: Current visit: Yes Status: Acute Continue Anticoagulation with eliquis. Rate controlled without rochelle agents. (8) Bilateral pleural effusion: Current visit: Yes Status: Acute Effusions are unchanged by imaging. (9) Lung mass: Current visit: Yes Status: Acute Will need outpatient biopsy - discussion with daughter by prior provider. Also with an anterior mediastinal mass by recent CT Chest. Subjective Interval history since last seen: 78-year-old woman with past medical history significant for Bipolar disorder, admitted from [facility] ED on 08/04/2018 with a diagnosis of [place] toxicity. Mrs. Sharma presented to the emergency room with a reported 1 month history of diarrhea along with several days of lethargy. Initial evaluation of note was for evidence of a UTI with pyuria, but [place] levels checked also returned elevated. Patient was noted to be somewhat somnolent and with acutely altered mental status. Today the patient appears more alert but remains confused. Her lithium levels remain normal, and now in the low normal range. No diarrhea has been reported. No overnight events. Patient remains afebrile. Exam Narrative Exam Narrative: General: Sitting up in bed, appears comfortable and in no acute distress. Awake, alert, Oriented to person only. Neck: Supple. Heart: RRR, no m/r/g Lungs: CTAB, without crackles, rhonchi, or wheezing. GI: + BS, Abdomen soft, nontender, nondistended Extremities: Mild b/l LE edema. Objective Objective Clinical Data: Abnormal lab results 08/08/18 08/08/18 Range/Units 06:10 06:10 RBC 3.59 L (4.00-5.20) m/cumm Hgb 10.7 L (12.0-15.5) g/dL MCV 101.1 H (80-95) fL MCHC 29.5 L (32.0-36.0) g/dL Chloride 115 H (98-107) mmol/L Carbon Dioxide 19.8 L (21.0-32.0) mmol/L Glucose 246 H (70-100) mg/dL Magnesium 1.6 L (1.8-2.4) mg/dL Vital Signs Temperature 36.6 C 08/08/18 16:07 Temperature Source Tympanic 08/08/18 16:07 Pulse 74 08/08/18 16:07 Pulse Rhythm Regular 08/08/18 15:31 Pulse 77 08/04/18 20:16 Respiratory Rate 18 08/08/18 16:07 Respiratory Effort 08/08/18 15:31 Respiratory Depth Normal 08/08/18 15:31 Respiratory Pattern Normal 08/08/18 15:31 Blood Pressure 148/76 H 08/08/18 16:07 Blood Pressure Mean 121 08/04/18 20:16 Blood Pressure Position Supine 08/04/18 18:09 Pulse Oximetry 97 08/08/18 16:07 Oxygen Delivery Method Room Air 08/08/18 16:07 Oxygen Flow Rate 0 08/08/18 16:07 Pain Level 0 08/08/18 07:39 Comment 08/06/18 07:45 Intake & Output 08/07/18 08/08/18 08/08/18 23:59 11:59 23:59 Intake Total 1091.25 / 1091.25 1495 / 1495 220 / 220 Output Total 450 / 450 400 / 400 Balance 641.25 / 641.25 1495 / 1495 -180 / -180 Intake: IV 956.25 / 956.25 1045 / 1045 Oral 135 / 135 450 / 450 220 / 220 Output: Urine 450 / 450 400 / 400 Other: Urine Color Yellow Yellow Urine Appearance Clear Clear Urine Odor None Normal Comment urine mixed with stool. Stool Size Large Stool Characteristics Soft Brown Voiding Methods Bedside Commode Bedside Commode Laboratory Results WBC 7.35 k/cumm (4.4-10.8) 08/08/18 06:10 RBC 3.59 m/cumm (4.00-5.20) L 08/08/18 06:10 Hgb 10.7 g/dL (12.0-15.5) L 08/08/18 06:10 Hct 36.3 % (36.0-46.0) 08/08/18 06:10 MCV 101.1 fL (80-95) H 08/08/18 06:10 MCH 29.8 pg (27.0-33.0) 08/08/18 06:10 MCHC 29.5 g/dL (32.0-36.0) L 08/08/18 06:10 RDW 14.1 % (11.7-14.6) 08/08/18 06:10 Plt Count 277 x1000/uL (130-400) 08/08/18 06:10 MPV 10.1 fL (8.0-11.0) 08/08/18 06:10 Immature Gran % 0.7 08/06/18 07:05 Neutrophils % 76.5 08/06/18 07:05 Lymphocytes % 10.3 08/06/18 07:05 Monocytes % 9.0 08/06/18 07:05 Eosinophils % 3.4 08/06/18 07:05 Basophils % 0.1 08/06/18 07:05 Absolute Neutrophils 5.89 k/cumm (1.2-6.7) 08/06/18 07:05 Absolute Lymphocytes 0.79 k/cumm (1.2-3.4) L 08/06/18 07:05 Absolute Monocytes 0.69 k/cumm (0.11-0.7) 08/06/18 07:05 Absolute Eosinophils 0.26 k/cumm (0.0-0.7) 08/06/18 07:05 Absolute Basophils 0.01 k/cumm (0.0-0.2) 08/06/18 07:05 PT 13.0 sec (9.3-10.8) H 08/04/18 17:45 INR 1.3 (1.0-3.5) 08/04/18 17:45 APTT 28.5 sec (21.0-31.4) 08/04/18 17:45 VBG pH 7.37 (7.32-7.43) 08/04/18 17:45 VBG pCO2 38 mm/Hg (34-47) 08/04/18 17:45 VBG pO2 50 mm/Hg (28-44) H 08/04/18 17:45 VBG HCO3 22 mmol/L (22-28) 08/04/18 17:45 VBG Total CO2 20 mmol/L (22-29) L 08/04/18 17:45 VBG O2 Saturation 85 % (70-80) H 08/04/18 17:45 VBG Base Excess -3.3 mmol/L (-3-3) L 08/04/18 17:45 Sodium 144 mmol/L (136-145) 08/08/18 06:10 Potassium 4.1 mmol/L (3.5-5.1) 08/08/18 06:10 Chloride 115 mmol/L (98-107) H 08/08/18 06:10 Carbon Dioxide 19.8 mmol/L (21.0-32.0) L 08/08/18 06:10 Anion Gap 9.2 mmol/L (3-11) 08/08/18 06:10 BUN 15 mg/dL (7-18) D 08/08/18 06:10 Creatinine 0.83 mg/dL (0.55-1.02) 08/08/18 06:10 Estimated GFR/1.73 m2 >= 60.00 (mL/min/1.73m2) 08/08/18 06:10 Glucose 246 mg/dL (70-100) H 08/08/18 06:10 Calcium 9.3 mg/dL (8.5-10.1) 08/08/18 06:10 Magnesium 1.6 mg/dL (1.8-2.4) L 08/08/18 06:10 Total Bilirubin 0.2 mg/dL (0.2-1.0) 08/07/18 06:40 Conjugated Bilirubin 0.09 mg/dL (0.00-0.20) 08/07/18 06:40 AST 19 U/L (15-37) 08/07/18 06:40 ALT 32 U/L (12-78) 08/07/18 06:40 Alkaline Phosphatase 187 U/L (46-116) H 08/07/18 06:40 Ammonia 26 umol/L (11-32) 08/04/18 17:45 Creatine Kinase 14 U/L (26-192) L 08/04/18 17:45 Troponin I 0.04 ng/mL (0.00-0.06) 08/04/18 17:45 Total Protein 6.2 g/dL (6.4-8.2) L 08/07/18 06:40 Albumin 1.6 g/dL (3.4-5.0) L 08/07/18 06:40 TSH 1.03 uIU/mL (0.358-3.74) 08/04/18 17:45 Urine Color Yellow (Yellow) 08/04/18 18:30 Urine Clarity Cloudy 08/04/18 18:30 Urine pH 6.0 (5-8) 08/04/18 18:30 Ur Specific [place] 1.020 (1.005-1.025) 08/04/18 18:30 Urine Protein 100 mg/dL (Negative) H 08/04/18 18:30 Urine Ketones 15 mg/dL (Negative) H 08/04/18 18:30 Urine Blood Moderate (Negative) H 08/04/18 18:30 Urine Nitrite Negative (Negative) 08/04/18 18:30 Urine Bilirubin Small (Negative) H 08/04/18 18:30 Urine Urobilinogen 1.0 EU/dL (Up TO 0.2) H 08/04/18 18:30 Ur Leukocyte Esterase Small (Negative) H 08/04/18 18:30 Urine RBC >50 (0-2) H 08/04/18 18:30 Urine WBC >50 HPF (0-5) 08/04/18 18:30 Ur Epithelial Cells Rare HPF (Negative) 08/04/18 18:30 Urine Crystals Negative HPF (Negative) 08/04/18 18:30 Urine Bacteria Moderate HPF (Negative) 08/04/18 18:30 Urine Casts Negative LPF (Negative) 08/04/18 18:30 Urine Mucus Moderate (Negative) 08/04/18 18:30 Urine Other Negative (Negative) 08/04/18 18:30 Ur Culture Indicated? Yes 08/04/18 18:30 Urine Glucose Negative mg/dL (Negative) 08/04/18 18:30 Stool Campylobacter PCR Cancelled 08/04/18 Unknown Stool Salmonella PCR Cancelled 08/04/18 Unknown Stool Shigella PCR Cancelled 08/04/18 Unknown [place] 0.85 mmol/L (0.60-1.20) 08/08/18 06:10 Shiga Toxin (PCR) Cancelled 08/04/18 Unknown
[2018-08-08] MEDS: traZODone 50 MG TAB PO (20:22)
[2018-08-09 00:08] VITALS: BP 143/73; PULSE 81; RESP 22; TEMP 36.4; O2SAT 94
[2018-08-09] MEDS: Levothyroxine 100 MCG TAB PO (06:40)
[2018-08-09 07:45] VITALS: BP 126/66; PULSE 71; RESP 18; TEMP 36.6; O2SAT 96
[2018-08-09] MEDS: Apixaban 5 MG TAB PO ×2 (08:52→20:53)
[2018-08-09] MEDS: Insulin Aspart 300 UNITS/3 ML PEN SC ×3 (08:52→17:07)
[2018-08-09] MEDS: Lithium Carbonate 150 MG CAP PO (08:52)
[2018-08-09 11:39] LABS: Abs Immature Grans 0.13 k/cumm (0.0-0.09); Absolute Basophil Count 0.03 k/cumm (0.0-0.2); Absolute Eosinophil Count 0.29 k/cumm (0.0-0.7); Absolute Lymphocyte Count 1.05 k/cumm (1.2-3.4); Absolute Monocyte Count 0.57 k/cumm (0.11-0.7); Basophils % 0.4; Eosinophils % 3.7; HGB 10.7 g/dL (12.0-15.5); Immature Grans % 1.7; Lymphocytes % 13.3; Mean Corp. HGB Concentration 29.7 g/dL (32.0-36.0); Mean Corpuscular Hemoglobin 29.9 pg (27.0-33.0); Mean Corpuscular Volume 100.6 fL (80-95); Mean Platelet Volume 9.3 fL (8.0-11.0); Monocytes % 7.2; Neutrophils % 73.7; Platelet Count 307 x1000/uL (130-400); RBC 3.58 m/cumm (4.00-5.20); RBC Distribution Width 14.3 % (11.7-14.6); White Blood Cell Count 7.87 k/cumm (4.4-10.8)
[2018-08-09 11:47] LABS: Anion Gap 8.7 mmol/L (3-11); BUN 12 mg/dL (7-18); CO2 20.3 mmol/L (21.0-32.0); CREATININE 0.86 mg/dL (0.55-1.02); Calcium 9.5 mg/dL (8.5-10.1); Chloride 112 mmol/L (98-107); Glucose 271 mg/dL (70-100); Magnesium 1.8 mg/dL (1.8-2.4); Potassium 4.3 mmol/L (3.5-5.1); Sodium 141 mmol/L (136-145)
[2018-08-09 12:07] LABS: Lithium 0.94 mmol/L (0.60-1.20)
--- NOTE | 2018-08-09 13:03 | PT.INTREAT ---
Date of service: 08/09/18 Time of Service: 11:45 PT Notes Inpatient Physical Therapy Treatment Note Date: 08/09/18 SUBJECTIVE:Luis states she is awfully tired today. OBJECTIVE: [] BED MOBILITY/TRANSFERS Supine-sit: CGA Sit-stand: CGA Stand-sit: CGA GAIT Assistive Device:FWW Weight bearing: full Assist: CGA Distance: 12' THEREX: performed a global LE strengthening routine, see flowsheet for details. ASSESSMENT: tolerated session well. Notable confusion, but willing to participate in PT with little coaxing and encouragement. PLAN: continue progressing strength and endurance to tolerance following PT POC. TREATMENT CODE/TIME:23 min. TPx1, TAx1.
[2018-08-09 15:57] VITALS: BP 142/73; PULSE 70; RESP 20; TEMP 36.7; O2SAT 98
--- NOTE | 2018-08-09 16:05 | PGE_ITS ---
Assessment and Plan (1) UTI (urinary tract infection): Current visit: Yes Status: Acute Urine Culture with Klebsiella resistant to Ampicillin only - Remains on Ceftriaxone, Day #4. (2) [place] toxicity: Current visit: Yes Status: Acute Levels normal again. Restarted [place] at reduced dose (although patient was at minimal dosing at baseline). Monitor lithium levels closely. (3) Toxic metabolic encephalopathy: Current visit: Yes Status: Acute Initially presumed secondary to acute lithium toxicity as well as UTI and possible infectious diarrheal illness. However, despite resolution of GI symptoms, treatment of UTI, hydration, and normalization of lithium levels patient's mental status is not yet at baseline. TSH checked and normal. Initial CT Head limited but without definitive acute intracranial process, but given continued confusion will recommend MRI - unfortunately not available over the weekend. Will schedule for tomorrow. No evidence of acidosis, uremia or [place], hypoxia, or other infection outside of above mentioned UTI. Patient was initially dehydrated but has since been hydrated. Electrolytes normal. CXR with b/l L>R pleural effusions, but no clear infiltrates. Medication list reviewed and fairly benign appearing. Monitor. (4) Bipolar 1 disorder: Current visit: No Status: Chronic Restart [place] as above. (5) Diabetes type 2, uncontrolled: Current visit: No Status: Chronic Continue increased dose basal insulin. Also on sliding scale coverage, ADA diet. (6) Diarrhea: Current visit: No Status: Chronic Resolved, etiology unclear. (7) Paroxysmal atrial fibrillation: Current visit: Yes Status: Acute Continue Anticoagulation with Apixaban. Rate controlled without rochelle agents. (8) Bilateral pleural effusion: Current visit: Yes Status: Acute Effusions are unchanged by imaging. (9) Lung mass: Current visit: Yes Status: Acute Will need outpatient biopsy - discussion with daughter by prior provider. Also with an anterior mediastinal mass by recent CT Chest. Subjective Interval history since last seen: 78-year-old woman with past medical history significant for Bipolar disorder, admitted from [facility] ED on 08/04/2018 with a diagnosis of Change in mental status in the setting of [place] toxicity and UTI. Mrs. Sharma presented to the emergency room with a reported 1 month history of diarrhea along with several days of lethargy. Initial evaluation of note was for evidence of a UTI with pyuria, but [place] levels checked also returned elevated. Patient was noted to be somewhat somnolent and with acutely altered mental status. She was admitted and her lithium was held and she was hydrated, with normalized lithium levels. Her UTI was also appropriately treated, and she is on day 4 of antibiotic therapy. However, her mental status remains off and not at her baseline. Today the patient appears more alert but remains confused. Her lithium levels remain normal. No diarrhea has been reported during her hospital course. No overnight events. Patient remains afebrile. Exam Narrative Exam Narrative: General: Sitting up in bed, appears comfortable and in no acute distress. Awake, alert, Oriented to person only. Neck: Supple. Heart: RRR, no m/r/g Lungs: CTAB, without crackles, rhonchi, or wheezing. GI: + BS, Abdomen soft, nontender, nondistended Extremities: Mild b/l LE edema. Objective Objective Clinical Data: Abnormal lab results 08/09/18 08/09/18 Range/Units 11:30 11:30 RBC 3.58 L (4.00-5.20) m/cumm Hgb 10.7 L (12.0-15.5) g/dL MCV 100.6 H (80-95) fL MCHC 29.7 L (32.0-36.0) g/dL Absolute Lymphocytes 1.05 L (1.2-3.4) k/cumm Chloride 112 H (98-107) mmol/L Carbon Dioxide 20.3 L (21.0-32.0) mmol/L Glucose 271 H (70-100) mg/dL Vital Signs Temperature 36.7 C 08/09/18 15:57 Temperature Source Tympanic 08/09/18 15:57 Pulse 70 08/09/18 15:57 Pulse Rhythm Regular 08/09/18 09:49 Pulse 77 08/04/18 20:16 Respiratory Rate 20 08/09/18 15:57 Respiratory Effort Non-Labored 08/09/18 09:49 Respiratory Depth Normal 08/09/18 09:49 Respiratory Pattern Normal 08/09/18 09:49 Blood Pressure 142/73 H 08/09/18 15:57 Blood Pressure Mean 121 08/04/18 20:16 Blood Pressure Position Supine 08/04/18 18:09 Pulse Oximetry 98 08/09/18 15:57 Oxygen Delivery Method Room Air 08/09/18 15:57 Oxygen Flow Rate 0 08/09/18 15:57 Pain Level 0 08/09/18 07:45 Comment 08/06/18 07:45 Intake & Output 08/08/18 08/09/18 08/09/18 23:59 11:59 23:59 Intake Total 1170 / 1170 Output Total 400 / 400 750 / 750 Balance 770 / 770 -750 / -750 Intake: IV 950 / 950 Oral 220 / 220 Output: Urine 400 / 400 750 / 750 Other: Urine Color Yellow Yellow Urine Appearance Clear Clear Urine Odor Normal Stool Size Moderate Stool Characteristics Soft Brown Voiding Methods Bedside Commode Bedside Commode Diaper Incontinent Laboratory Results WBC 7.87 k/cumm (4.4-10.8) 08/09/18 11:30 RBC 3.58 m/cumm (4.00-5.20) L 08/09/18 11:30 Hgb 10.7 g/dL (12.0-15.5) L 08/09/18 11:30 Hct 36.0 % (36.0-46.0) 08/09/18 11:30 MCV 100.6 fL (80-95) H 08/09/18 11:30 MCH 29.9 pg (27.0-33.0) 08/09/18 11:30 MCHC 29.7 g/dL (32.0-36.0) L 08/09/18 11:30 RDW 14.3 % (11.7-14.6) 08/09/18 11:30 Plt Count 307 x1000/uL (130-400) 08/09/18 11:30 MPV 9.3 fL (8.0-11.0) 08/09/18 11:30 Immature Gran % 1.7 08/09/18 11:30 Neutrophils % 73.7 08/09/18 11:30 Lymphocytes % 13.3 08/09/18 11:30 Monocytes % 7.2 08/09/18 11:30 Eosinophils % 3.7 08/09/18 11:30 Basophils % 0.4 08/09/18 11:30 Absolute Neutrophils 5.80 k/cumm (1.2-6.7) 08/09/18 11:30 Absolute Lymphocytes 1.05 k/cumm (1.2-3.4) L 08/09/18 11:30 Absolute Monocytes 0.57 k/cumm (0.11-0.7) 08/09/18 11:30 Absolute Eosinophils 0.29 k/cumm (0.0-0.7) 08/09/18 11:30 Absolute Basophils 0.03 k/cumm (0.0-0.2) 08/09/18 11:30 PT 13.0 sec (9.3-10.8) H 08/04/18 17:45 INR 1.3 (1.0-3.5) 08/04/18 17:45 APTT 28.5 sec (21.0-31.4) 08/04/18 17:45 VBG pH 7.37 (7.32-7.43) 08/04/18 17:45 VBG pCO2 38 mm/Hg (34-47) 08/04/18 17:45 VBG pO2 50 mm/Hg (28-44) H 08/04/18 17:45 VBG HCO3 22 mmol/L (22-28) 08/04/18 17:45 VBG Total CO2 20 mmol/L (22-29) L 08/04/18 17:45 VBG O2 Saturation 85 % (70-80) H 08/04/18 17:45 VBG Base Excess -3.3 mmol/L (-3-3) L 08/04/18 17:45 Sodium 141 mmol/L (136-145) 08/09/18 11:30 Potassium 4.3 mmol/L (3.5-5.1) 08/09/18 11:30 Chloride 112 mmol/L (98-107) H 08/09/18 11:30 Carbon Dioxide 20.3 mmol/L (21.0-32.0) L 08/09/18 11:30 Anion Gap 8.7 mmol/L (3-11) 08/09/18 11:30 BUN 12 mg/dL (7-18) 08/09/18 11:30 Creatinine 0.86 mg/dL (0.55-1.02) 08/09/18 11:30 Estimated GFR/1.73 m2 >= 60.00 (mL/min/1.73m2) 08/09/18 11:30 Glucose 271 mg/dL (70-100) H 08/09/18 11:30 Calcium 9.5 mg/dL (8.5-10.1) 08/09/18 11:30 Magnesium 1.8 mg/dL (1.8-2.4) 08/09/18 11:30 Total Bilirubin 0.2 mg/dL (0.2-1.0) 08/07/18 06:40 Conjugated Bilirubin 0.09 mg/dL (0.00-0.20) 08/07/18 06:40 AST 19 U/L (15-37) 08/07/18 06:40 ALT 32 U/L (12-78) 08/07/18 06:40 Alkaline Phosphatase 187 U/L (46-116) H 08/07/18 06:40 Ammonia 26 umol/L (11-32) 08/04/18 17:45 Creatine Kinase 14 U/L (26-192) L 08/04/18 17:45 Troponin I 0.04 ng/mL (0.00-0.06) 08/04/18 17:45 Total Protein 6.2 g/dL (6.4-8.2) L 08/07/18 06:40 Albumin 1.6 g/dL (3.4-5.0) L 08/07/18 06:40 TSH 1.03 uIU/mL (0.358-3.74) 08/04/18 17:45 Urine Color Yellow (Yellow) 08/04/18 18:30 Urine Clarity Cloudy 08/04/18 18:30 Urine pH 6.0 (5-8) 08/04/18 18:30 Ur Specific [place] 1.020 (1.005-1.025) 08/04/18 18:30 Urine Protein 100 mg/dL (Negative) H 08/04/18 18:30 Urine Ketones 15 mg/dL (Negative) H 08/04/18 18:30 Urine Blood Moderate (Negative) H 08/04/18 18:30 Urine Nitrite Negative (Negative) 08/04/18 18:30 Urine Bilirubin Small (Negative) H 08/04/18 18:30 Urine Urobilinogen 1.0 EU/dL (Up TO 0.2) H 08/04/18 18:30 Ur Leukocyte Esterase Small (Negative) H 08/04/18 18:30 Urine RBC >50 (0-2) H 08/04/18 18:30 Urine WBC >50 HPF (0-5) 08/04/18 18:30 Ur Epithelial Cells Rare HPF (Negative) 08/04/18 18:30 Urine Crystals Negative HPF (Negative) 08/04/18 18:30 Urine Bacteria Moderate HPF (Negative) 08/04/18 18:30 Urine Casts Negative LPF (Negative) 08/04/18 18:30 Urine Mucus Moderate (Negative) 08/04/18 18:30 Urine Other Negative (Negative) 08/04/18 18:30 Ur Culture Indicated? Yes 08/04/18 18:30 Urine Glucose Negative mg/dL (Negative) 08/04/18 18:30 Stool Campylobacter PCR Cancelled 08/04/18 Unknown Stool Salmonella PCR Cancelled 08/04/18 Unknown Stool Shigella PCR Cancelled 08/04/18 Unknown [place] 0.94 mmol/L (0.60-1.20) 08/09/18 11:30 Shiga Toxin (PCR) Cancelled 08/04/18 Unknown
--- NOTE | 2018-08-09 18:20 | PDOC.CMPRO ---
- If Service Date Differs Date of service: 08/09/18 Time of Service: 18:20 Care Management Progress Note S/O: CM met with patient and her daughter Paulette. Luis is awake she is slow to respond to questions however she is sitting up in the chair and per her daughter appetite has improved. Daughter states that Luis is not at her baseline she states she takes care of her at home frequently. She reports Luis is usually sharp as a tac. Luis is able to express that she is tired of having things done to her which she is referring to test and procedures. She is open to Palliative referral during this admission. She would like to have her family present and discuss goals of care. Luis will have an MRI per provider related to AMS not clearing. She has been treated for UTI. Luis wants to return home with continued services and the care of her daughter. She does not want to be discharged to SNF, her daughter is willing to care for her she wants to be prepared to what Moms needs will be. A: 78 y/o female admitted 08/04/18 with UTI. P: No change in Luis's status today she continues to receive IV antibiotic for UTI. Return home with continued CFC high highest COMPETITIVE SHOPPER's 2x/day and daughters support. Palliative care consult to be placed and completed when she is more alert. CM to continue to follow Luis throughout her stay and provide support discharge planning and disposition.
[2018-08-09] MEDS: traZODone 50 MG TAB PO (21:09)
[2018-08-09 23:00] VITALS: BP 142/73; PULSE 70; RESP 16; TEMP 36.7; O2SAT 98
[2018-08-10 04:18] VITALS: BP 131/74; PULSE 82; RESP 15; TEMP 36.2; O2SAT 95
[2018-08-10] MEDS: Levothyroxine 100 MCG TAB PO (06:38)
[2018-08-10 07:29] VITALS: BP 138/72; PULSE 78; RESP 18; TEMP 36.1; O2SAT 97
[2018-08-10 07:32] LABS: Abs Immature Grans 0.15 k/cumm (0.0-0.09); HCT 35.6 % (36.0-46.0); HGB 10.7 g/dL (12.0-15.5); Mean Corp. HGB Concentration 30.1 g/dL (32.0-36.0); Mean Corpuscular Hemoglobin 30.3 pg (27.0-33.0); Mean Corpuscular Volume 100.8 fL (80-95); Mean Platelet Volume 9.5 fL (8.0-11.0); Platelet Count 298 x1000/uL (130-400); RBC 3.53 m/cumm (4.00-5.20); RBC Distribution Width 14.4 % (11.7-14.6); White Blood Cell Count 7.01 k/cumm (4.4-10.8)
[2018-08-10 07:35] LABS: Anion Gap 8.3 mmol/L (3-11); BUN 11 mg/dL (7-18); CO2 19.7 mmol/L (21.0-32.0); CREATININE 0.85 mg/dL (0.55-1.02); Calcium 9.3 mg/dL (8.5-10.1); Chloride 112 mmol/L (98-107); Glucose 209 mg/dL (70-100); Magnesium 1.9 mg/dL (1.8-2.4); Potassium 4.5 mmol/L (3.5-5.1); Sodium 140 mmol/L (136-145)
[2018-08-10 07:55] LABS: Absolute Eosinophil Count 0.42 k/cumm (0.0-0.7); Absolute Lymphocyte Count 1.19 k/cumm (1.2-3.4); Absolute Monocyte Count 0.42 k/cumm (0.11-0.7); Absolute Neutrophil Count 4.91 k/cumm (1.2-6.7); Diff Comment Manual Differential; Poikilocytes 1+; Polychromasia Present
[2018-08-10 07:59] LABS: Lithium 0.81 mmol/L (0.60-1.20)
[2018-08-10] MEDS: Insulin Aspart 300 UNITS/3 ML PEN SC ×3 (08:13→17:12)
[2018-08-10] MEDS: Lithium Carbonate 150 MG CAP PO (08:13)
[2018-08-10] MEDS: Apixaban 5 MG TAB PO ×2 (08:13→19:45)
--- NOTE | 2018-08-10 12:00 | DI.MRI_ITS ---
SYMPTOM/DIAGNOSIS: ALTERED MENTAL STATUS BRAIN MRI: MRI examination of the brain was performed according to the usual protocol. The examination is somewhat limited due to patient motion. There is increased signal in right mastoid air cells inferiorly raising the possibility of a serous mastoiditis. The orbital structures appear intact and otherwise the temporal bone structures are unremarkable. There is normal flow void in the [place] vasculature. Pituitary is unremarkable. There is moderate generalized cerebral atrophy. There are scattered areas of abnormal signal in periventricular white matter and in the basal ganglia, particularly on the right. Probable small right lacunar infarcts are noted. Diffusion weighted imaging is within normal limits. Susceptibility weighted imaging shows no evidence of intracranial hemorrhage. There is a possible small left occipital infarct, no diffusion abnormality in this area. CONCLUSION: No evidence of acute intracranial process.
--- NOTE | 2018-08-10 12:22 | PDOC.CMPRO ---
- If Service Date Differs Date of service: 08/10/18 Time of Service: 12:22 Care Management Progress Note S/O: Luis is sitting up in her bed when this health underwriter visits this morning. She is pleasant and receptive to discussion. Luis states that Paulette will be in to see her this morning, and that she is feeling okaY. CM discussed DC plans with Luis, whom continues to identify that she would prefer to return home with services rather than go to a SNF. Referrals have been sent to [facility] and [facility] as Luis was receptive to this last week, [facility] is unable to accept, and [facility] continues to have referral. A: 78 y/o female admitted 08/04/18 with UTI. P: No change in Luis's status today she continues to receive IV antibiotic for UTI. Return home with continued CFC high highest VAN DRIVER's 2x/day and daughters support. Palliative care consult to be placed and completed when she is more alert. CM to continue to follow Luis throughout her stay and provide support discharge planning and disposition.
--- NOTE | 2018-08-10 12:26 | CMPROGNOTE_ITS ---
- If Service Date Differs Date of service: 08/10/18 Time of Service: 12:22 Care Management Progress Note S/O: Luis is sitting up in her bed when this proposal manager writer visits this morning. She is pleasant and receptive to discussion. Luis states that Paulette will be in to see her this morning, and that she is feeling okaY. CM discussed DC plans with Luis, whom continues to identify that she would prefer to return home with services rather than go to a SNF. Referrals have been sent to [facility] and [facility] as Luis was receptive to this last week, [facility] is unable to accept, and [facility] continues to have referral. A: 78 y/o female admitted 08/04/18 with UTI. P: No change in Luis's status today she continues to receive IV antibiotic for UTI. Return home with continued CFC high highest UNEMPLOYMENT EXAMINER's 2x/day and daughters support. Palliative care consult to be placed and completed when she is more alert. CM to continue to follow Luis throughout her stay and provide support discharge planning and disposition.
--- NOTE | 2018-08-10 13:05 | PT.INTREAT ---
Date of service: 08/10/18 Time of Service: 13:05 PT Notes Inpatient Physical Therapy Treatment Note Date: 08/10/18 PRECAUTIONS: Fall SUBJECTIVE: Luis states that she does not feel well this morning, and requires some encouragement to participate in PT. OBJECTIVE: PAIN: No c/o pain BED MOBILITY/TRANSFERS Sit-supine: SBA with HOB flat Sit-stand: Mod A Stand-sit: CGA GAIT Assistive Device: FWW Weight bearing: Full Assist: CGA Distance: 40' Deviation: LOB x2 ASSESSMENT: Patient tolerated a slight progression in gait distance with FWW support and CGA, with some encouragement. Patient would benefit from continued gait and transfer training, as well as strengthening, for improved ability to perform daily functional tasks. PLAN: Continue with PT's POC TREATMENT CODE/TIME: 20 minutes; FIDELINA
--- NOTE | 2018-08-10 13:10 | PT.INTREAT ---
Date of service: 08/10/18 Time of Service: 13:11 PT Notes Inpatient Physical Therapy Treatment Note Date: 08/10/18 PRECAUTIONS:Seizure, Fall SUBJECTIVE: Luis OBJECTIVE: [] PAIN: [] BED MOBILITY/TRANSFERS Rolling L/R: [] Supine-sit: [] Sit-supine: [] Sit-stand: [] Stand-sit: [] Bed-Chair: [] Chair-bed: [] GAIT Assistive Device: [] Weight bearing: [] Assist: [] Distance: [] Deviation: [] VITALS: [] THEREX: [] STAIRS:[] ASSESSMENT: [] PLAN: [] TREATMENT CODE/TIME: []
--- NOTE | 2018-08-10 14:09 | PGE_ITS ---
Assessment and Plan (1) UTI (urinary tract infection): Current visit: Yes Status: Acute Urine Culture with Klebsiella resistant to Ampicillin only - Remains on Ceftriaxone, Day #5 of a 7 day course. (2) [place] toxicity: Current visit: Yes Status: Acute Levels normal again. Restarted [place] at reduced dose. Monitor lithium levels closely. (3) Toxic metabolic encephalopathy: Current visit: Yes Status: Acute Initially presumed secondary to acute lithium toxicity as well as UTI and possible infectious diarrheal illness. However, despite resolution of GI symptoms, treatment of UTI, hydration, and normalization of lithium levels patient's mental status is not yet at baseline. MRI without evidence of acute intracranial process. Neurology consult pending. Consider obtaining bloodwork to include RPR, Vitamin B12, folic acid, thiamine, repeat a. TSH normal at time of admission. (4) Bipolar 1 disorder: Current visit: No Status: Chronic Continue [place]. (5) Diabetes type 2, uncontrolled: Current visit: No Status: Chronic Continue increased dose basal insulin. Also on sliding scale coverage, ADA diet. (6) Diarrhea: Current visit: No Status: Chronic Resolved, etiology unclear. (7) Paroxysmal atrial fibrillation: Current visit: Yes Status: Acute Continue Anticoagulation with Apixaban. Rate controlled without rochelle agents. (8) Bilateral pleural effusion: Current visit: Yes Status: Acute Effusions are unchanged by imaging. (9) Lung mass: Current visit: Yes Status: Acute Will need outpatient biopsy. Also with an anterior mediastinal mass by recent CT Chest. Subjective Patient reports: no new complaints Interval history since last seen: Luis is a 78 yo woman with obesity, PAF, HLD, DM, bipolar disorder treated with lithium, hypothyroidism, hyperparathyroidism who was admitted after complaining of ongoing diarrhea and lethargy. In the ER was found to have UTI with pyuria. [place] levels were also noted to be elevated. Luis has also had altered mental status and lethargy which was initially thought to be secondary to lithium toxicity, however her mental status has not improved despite normal lithium levels. MRI of the head today shows no acute intracranial process with evidence of old lacunar infarct. Luis is fatigued and barely able to answer questions. Is easily arousable to verbal and tactile stimuli. Currently appears comfortable in bed with no complaints other than being tired. ROS: 10 point ROS obtained with pertinent positives noted in HPI, otherwise negative. Exam Narrative Exam Narrative: General: 78yo female. Well developed and well nourished. No acute distress. A/Ox1, to self only. Cooperative. Fatigued, arousable to verbal and tactile stimuli. Answers questions appropriately. HEENT: Normocephalic, Atraumatic. Conjunctiva clear, sclera non-icteric. PERRL. Moist mucous membranes, oropharynx clear. Neck supple, no JVD, thyromegaly or lymphadenopathy. Cardiovascular: Regular rate and rhythm, S1S2, no S3 or S4. No murmur, rub, gallop. Respiratory: Chest expansion symmetrical, respirations unlabored. Lungs clear to auscultation, no adventitious breath sounds. GI: Abdomen round, soft, non-tender to palpation. Normoactive bowel sounds in all 4 quadrants. No hepatosplenomegaly or prominent masses. : deferred Extremities: Lower extremities without deformity or edema Neurological: non-focal. Objective Objective Clinical Data: Abnormal lab results 08/10/18 08/10/18 Range/Units 07:15 07:15 RBC 3.53 L (4.00-5.20) m/cumm Hgb 10.7 L (12.0-15.5) g/dL Hct 35.6 L (36.0-46.0) % MCV 100.8 H (80-95) fL MCHC 30.1 L (32.0-36.0) g/dL Absolute Lymphocytes 1.19 L (1.2-3.4) k/cumm Chloride 112 H (98-107) mmol/L Carbon Dioxide 19.7 L (21.0-32.0) mmol/L Glucose 209 H (70-100) mg/dL Vital Signs Temperature 36.1 C L 08/10/18 07:29 Temperature Source Tympanic 08/10/18 07:29 Pulse 78 08/10/18 07:29 Pulse Rhythm Regular 08/10/18 10:31 Pulse 77 08/04/18 20:16 Respiratory Rate 18 08/10/18 07:29 Respiratory Effort 08/10/18 10:31 Respiratory Depth Normal 08/10/18 10:31 Respiratory Pattern Normal 08/10/18 10:31 Blood Pressure 138/72 08/10/18 07:29 Blood Pressure Mean 121 08/04/18 20:16 Blood Pressure Position Supine 08/04/18 18:09 Pulse Oximetry 97 08/10/18 07:29 Oxygen Delivery Method Room Air 08/10/18 07:29 Oxygen Flow Rate 0 08/10/18 07:29 Pain Level 0 08/10/18 07:29 Comment 08/06/18 07:45 Intake & Output 08/09/18 08/10/18 08/10/18 23:59 11:59 23:59 Intake Total 250 / 250 50 / 50 Output Total 500 / 500 300 / 300 200 / 200 Balance -490 / -490 -50 / -50 -150 / -150 Intake: IV 50 / 50 Oral 250 / 250 Output: Urine 500 / 500 300 / 300 200 / 200 Other: Urine Color Yellow Yellow Yellow Urine Appearance Clear Clear Stool Size Moderate Stool Characteristics Soft Brown Voiding Methods Bedside Commode Bedside Commode Bedside Commode Diaper Incontinent Laboratory Results WBC 7.01 k/cumm (4.4-10.8) 08/10/18 07:15 RBC 3.53 m/cumm (4.00-5.20) L 08/10/18 07:15 Hgb 10.7 g/dL (12.0-15.5) L 08/10/18 07:15 Hct 35.6 % (36.0-46.0) L 08/10/18 07:15 MCV 100.8 fL (80-95) H 08/10/18 07:15 MCH 30.3 pg (27.0-33.0) 08/10/18 07:15 MCHC 30.1 g/dL (32.0-36.0) L 08/10/18 07:15 RDW 14.4 % (11.7-14.6) 08/10/18 07:15 Plt Count 298 x1000/uL (130-400) 08/10/18 07:15 MPV 9.5 fL (8.0-11.0) 08/10/18 07:15 Immature Gran % See Differential 08/10/18 07:15 Neutrophils % 70.0 08/10/18 07:15 Lymphocytes % 17.0 08/10/18 07:15 Monocytes % 6.0 08/10/18 07:15 Eosinophils % 6.0 08/10/18 07:15 Basophils % 0.0 08/10/18 07:15 Absolute Neutrophils 4.91 k/cumm (1.2-6.7) 08/10/18 07:15 Absolute Lymphocytes 1.19 k/cumm (1.2-3.4) L 08/10/18 07:15 Absolute Monocytes 0.42 k/cumm (0.11-0.7) 08/10/18 07:15 Absolute Eosinophils 0.42 k/cumm (0.0-0.7) 08/10/18 07:15 Absolute Basophils 0.00 k/cumm (0.0-0.2) 08/10/18 07:15 Metamyelocytes 1.0 % 08/10/18 07:15 Differential Comment Manual differential 08/10/18 07:15 RBC Morphology See below 08/10/18 07:15 Polychromasia Present 08/10/18 07:15 Poikilocytosis 1+ 08/10/18 07:15 PT 13.0 sec (9.3-10.8) H 08/04/18 17:45 INR 1.3 (1.0-3.5) 08/04/18 17:45 APTT 28.5 sec (21.0-31.4) 08/04/18 17:45 VBG pH 7.37 (7.32-7.43) 08/04/18 17:45 VBG pCO2 38 mm/Hg (34-47) 08/04/18 17:45 VBG pO2 50 mm/Hg (28-44) H 08/04/18 17:45 VBG HCO3 22 mmol/L (22-28) 08/04/18 17:45 VBG Total CO2 20 mmol/L (22-29) L 08/04/18 17:45 VBG O2 Saturation 85 % (70-80) H 08/04/18 17:45 VBG Base Excess -3.3 mmol/L (-3-3) L 08/04/18 17:45 Sodium 140 mmol/L (136-145) 08/10/18 07:15 Potassium 4.5 mmol/L (3.5-5.1) 08/10/18 07:15 Chloride 112 mmol/L (98-107) H 08/10/18 07:15 Carbon Dioxide 19.7 mmol/L (21.0-32.0) L 08/10/18 07:15 Anion Gap 8.3 mmol/L (3-11) 08/10/18 07:15 BUN 11 mg/dL (7-18) 08/10/18 07:15 Creatinine 0.85 mg/dL (0.55-1.02) 08/10/18 07:15 Estimated GFR/1.73 m2 >= 60.00 (mL/min/1.73m2) 08/10/18 07:15 Glucose 209 mg/dL (70-100) H 08/10/18 07:15 Calcium 9.3 mg/dL (8.5-10.1) 08/10/18 07:15 Magnesium 1.9 mg/dL (1.8-2.4) 08/10/18 07:15 Total Bilirubin 0.2 mg/dL (0.2-1.0) 08/07/18 06:40 Conjugated Bilirubin 0.09 mg/dL (0.00-0.20) 08/07/18 06:40 AST 19 U/L (15-37) 08/07/18 06:40 ALT 32 U/L (12-78) 08/07/18 06:40 Alkaline Phosphatase 187 U/L (46-116) H 08/07/18 06:40 Ammonia 26 umol/L (11-32) 08/04/18 17:45 Creatine Kinase 14 U/L (26-192) L 08/04/18 17:45 Troponin I 0.04 ng/mL (0.00-0.06) 08/04/18 17:45 Total Protein 6.2 g/dL (6.4-8.2) L 08/07/18 06:40 Albumin 1.6 g/dL (3.4-5.0) L 08/07/18 06:40 TSH 1.03 uIU/mL (0.358-3.74) 08/04/18 17:45 Urine Color Yellow (Yellow) 08/04/18 18:30 Urine Clarity Cloudy 08/04/18 18:30 Urine pH 6.0 (5-8) 08/04/18 18:30 Ur Specific [place] 1.020 (1.005-1.025) 08/04/18 18:30 Urine Protein 100 mg/dL (Negative) H 08/04/18 18:30 Urine Ketones 15 mg/dL (Negative) H 08/04/18 18:30 Urine Blood Moderate (Negative) H 08/04/18 18:30 Urine Nitrite Negative (Negative) 08/04/18 18:30 Urine Bilirubin Small (Negative) H 08/04/18 18:30 Urine Urobilinogen 1.0 EU/dL (Up TO 0.2) H 08/04/18 18:30 Ur Leukocyte Esterase Small (Negative) H 08/04/18 18:30 Urine RBC >50 (0-2) H 08/04/18 18:30 Urine WBC >50 HPF (0-5) 08/04/18 18:30 Ur Epithelial Cells Rare HPF (Negative) 08/04/18 18:30 Urine Crystals Negative HPF (Negative) 08/04/18 18:30 Urine Bacteria Moderate HPF (Negative) 08/04/18 18:30 Urine Casts Negative LPF (Negative) 08/04/18 18:30 Urine Mucus Moderate (Negative) 08/04/18 18:30 Urine Other Negative (Negative) 08/04/18 18:30 Ur Culture Indicated? Yes 08/04/18 18:30 Urine Glucose Negative mg/dL (Negative) 08/04/18 18:30 Stool Campylobacter PCR Cancelled 08/04/18 Unknown Stool Salmonella PCR Cancelled 08/04/18 Unknown Stool Shigella PCR Cancelled 08/04/18 Unknown [place] 0.81 mmol/L (0.60-1.20) 08/10/18 07:15 Shiga Toxin (PCR) Cancelled 08/04/18 Unknown
--- NOTE | 2018-08-10 15:28 | NT_ITS ---
Date of service: 08/10/18 Time of Service: 15:28 PT Notes 08/10/18 Attempt x2. Hold afternoon PT session. aKlyani Clifton, [employer] HELPER
[2018-08-10 15:54] VITALS: BP 159/84; PULSE 82; RESP 18; TEMP 36.3; O2SAT 95
[2018-08-10] MEDS: traZODone 50 MG TAB PO (21:55)
[2018-08-11 00:15] VITALS: BP 168/82; PULSE 75; RESP 18; TEMP 36.3; O2SAT 98
[2018-08-11] MEDS: Levothyroxine 100 MCG TAB PO (06:45)
[2018-08-11 07:27] LABS: HCT 35.4 % (36.0-46.0); HGB 10.5 g/dL (12.0-15.5); Mean Corp. HGB Concentration 29.7 g/dL (32.0-36.0); Mean Corpuscular Hemoglobin 29.9 pg (27.0-33.0); Mean Corpuscular Volume 100.9 fL (80-95); Mean Platelet Volume 9.5 fL (8.0-11.0); Platelet Count 356 x1000/uL (130-400); RBC 3.51 m/cumm (4.00-5.20); RBC Distribution Width 14.8 % (11.7-14.6); White Blood Cell Count 7.24 k/cumm (4.4-10.8)
[2018-08-11 08:00] LABS: Absolute Eosinophil Count 0.29 k/cumm (0.0-0.7); Absolute Lymphocyte Count 1.59 k/cumm (1.2-3.4); Absolute Monocyte Count 0.51 k/cumm (0.11-0.7); Absolute Neutrophil Count 4.63 k/cumm (1.2-6.7); Diff Comment Manual Differential; Hypochromasia 1+
[2018-08-11 08:01] LABS: Poikilocytes 2+; Polychromasia Present
[2018-08-11 08:06] VITALS: BP 123/61; PULSE 68; RESP 18; TEMP 36.5; O2SAT 98
[2018-08-11 08:08] LABS: BUN 10 mg/dL (7-18); CREATININE 0.93 mg/dL (0.55-1.02); Calcium 9.2 mg/dL (8.5-10.1); Chloride 114 mmol/L (98-107); Estimated GFR 58.16 (mL/min/1.73m2); Glucose 148 mg/dL (70-100); Magnesium 1.9 mg/dL (1.8-2.4); Potassium 4.2 mmol/L (3.5-5.1); Sodium 144 mmol/L (136-145)
[2018-08-11 08:11] LABS: Lithium 0.82 mmol/L (0.60-1.20)
--- NOTE | 2018-08-11 08:32 | W.NEUROCONSU ---
Date of service: 08/11/18 Assessment and Plan (1) Toxic metabolic encephalopathy: Current visit: Yes Status: Acute Ms. Sharma is a 78-year-old woman of unknown handedness who was admitted on 08/04/2018 with several days of lethargy and generalized weakness along with altered mental status found to have an elevated lithium level and a urinary tract infection. She continues to have altered mental status consistent with delirium. It is unclear what her baseline is though she did apparently live independently despite being mostly wheelchair bound. It sounds like she has 2 children who live close by and are involved in her care. Her exam was somewhat limited, but was most notable for asterixis indicating ongoing toxic metabolic encephalopathy. Del[place]roix is slow to diffuse in and out of the brain and just because her serum level is now within normal range does not mean that her brain level is within normal range. Encephalopathy from lithium toxicity can take several weeks to clear. There are cases of irreversible lithium toxicity in the medical literature. Workup for other metabolic etiologies for altered mental status can also be pursued per primary team. Consider psychiatry consult if there is concern this is not delirium. She can follow-up in the neurology clinic after discharge for further evaluation of her mental status. Thank you for this consultation. (2) Del[place]roix toxicity: Current visit: Yes Status: Acute (3) UTI (urinary tract infection): Current visit: Yes Status: Acute (4) Delirium: Current visit: Yes Status: Acute History of Present Illness Chief Complaint: altered mental status Narrative: Ms. Sharma is a 78-year-old woman of unknown handedness with a past medical history of bipolar disorder, diabetes, paroxysmal atrial fibrillation, hypertension, hypothyroidism, and hyperparathyroidism to name a few issues. She was brought to the ER on 08/04/2018 by her daughter with a one-month history of diarrhea and several days of increasing lethargy and altered mental status. Her lithium level was elevated at 1.76 and she was also found to have urinary tract infection. She was admitted and treated with IV antibiotics. Her lithium level has since come down to 0.81 and her medication was restarted. However, she has remained persistently confused. Her affect is pleasant but she remains disoriented with hallucinations versus delusions. I was unable to speak with her family, but it appears that at baseline she is fairly independent and normally oriented. She is generally wheelchair bound but can ambulate short distances with a walker at home. She underwent MRI of her brain which I was able to review. It shows moderate generalized cerebral atrophy. Also shows old bilateral basal ganglia infarcts and a questionable old infarct in the left occipital lobe. She had a normal TSH. Consults Requesting physician: Vikas Montoya Review of Systems Review of Systems All systems reviewed & are unremarkable except as noted in HPI and below PFSH Medical History Ulcer of foot (Acute) Malignant neoplasm of female breast (Acute) Iatrogenic pulmonary embolism and infarction (Acute 07/31/12) Hyperparathyroidism, unspecified (Acute) Hyperlipidemia (Acute) Depressive disorder (Acute) Atherosclerosis of platinum coronary artery (Acute) Paroxysmal atrial fibrillation (Acute) Diabetes type 2, uncontrolled (Chronic) Chronic diabetic ulcer of left foot determined by examination (Chronic) Bipolar 1 disorder (Chronic) Hypothyroidism (Chronic) Hypertension (Chronic) Insomnia (Chronic) Edema, peripheral (Chronic) Social History household members: none number of children: 4 Smoking/Tobacco Use Status: Never alcohol intake: never substance use type: does not use additional social history: She lives alone. Surgical History Amputated toe of right foot (Acute) Amputated toe of left foot (Acute) Amputation (01/08/11) Biopsy of breast Cholecystectomy Correction, Hammertoe (04/20/03) Debridement Ulcer (08/27/00) Debridement Ulcer (04/06/12) Debridement Ulcer (04/09/12) Fracture, Open Treatment Incision & Drainage, Abscess or Hematoma (03/16/04) Lobectomy Parathyroidectomy Visit Medication and Allergies Active Medications Generic Name Dose Route Start Last Admin Trade Name Freq PRN Reason Stop Dose Admin Acetaminophen 650 mg 08/04/18 20:30 Tylenol PO Q6H PRN PRN Apixaban 5 mg 08/05/18 08:30 08/10/18 19:45 Eliquis PO 5 mg BID CM Administration Dextrose 0 gm 08/05/18 20:20 Insta-Glucose PO DIRECTED PRN Dextrose/Water 0 gm 08/05/18 20:20 IVP DIRECTED PRN Dimethicone/Zinc Oxide 0 gm 08/04/18 20:16 Devin Protect Cream TP PRN PRN Ceftriaxone Sodium 1 gm/ 50 mls @ 100 mls/hr 10/10/18 20:00 08/10/18 20:15 Sodium Chloride IVPB Infused Q24H CM Infusion Insulin Aspart 0 units 08/06/18 08:00 08/11/18 08:04 Novolog Flexpen SC Not Given 0800,1200,1700 [facility] Protocol Insulin Detemir 20 units 08/10/18 22:00 08/10/18 21:55 Levemir Flextouch Pen SC 20 units HS CM Administration Levothyroxine Sodium 100 mcg 08/05/18 06:00 08/10/18 06:38 Levothroid PO 100 mcg 0600 CM Administration [place] Carbonate 150 mg 08/09/18 08:30 08/10/18 08:13 Eskalith PO 150 mg DAILY CM Administration Patients Own ( 30 mg 08/08/18 08:30 08/10/18 08:13 Cinacalcet [Sensipar PO 30 mg ] 30 Mg) DAILY CM Administration Trazodone HCl 50 mg 08/07/18 22:00 08/10/18 21:55 Desyrel PO 50 mg HS CM Administration White Petrol/Mineral Oil/Lanolin 120 gm 08/08/18 08:30 08/10/18 08:13 Eucerin Creme TP 1 applic DAILY CM Administration Allergies ciprofloxacin Adverse Reaction (Intermediate, Unverified 08/04/18 19:11) Anorexia fluoxetine Adverse Reaction (Intermediate, Unverified 08/04/18 19:11) Tremor, weakness metformin Adverse Reaction (Unknown, Unverified 08/04/18 19:11) Diarrhea Exam Narrative Exam Narrative: Physical Exam: Gen: Patient of apparent stated age, NAD Head and face: no facial or cranial abnormalities Neck: Supple, no meningismus, no occipital tenderness CV: RRR Resp: CTA B/L Abd: soft, nontender, nondistended Ext: No edema. No clubbing or cyanosis. No bony deformity. Chronic vascular skin changes in LE. Neuro Exam: Language: fluency, naming, and repetition intact; she declined comprehension testing citing fatigue Mental Status: AAO to self only; did know she was in [place] and [facility] with some prodding; Speech: no dysarthria Cranial nerves: Funduscopy: not performed CN II: visual nava intact CN III, IV, : extraocular movements intact, no nystagmus, pupils symmetric and reactive to light CN V: face sensation intact to PP CN VII: no facial asymmetry noted CN VIII: hearing intact bilaterally CN IX, X: palate rises symmetrically CN XI: trapezius/SCM 5/5 bilaterally CN XII: protrudes tongue symmetrically Sensory: intact to PP in all extremities; Motor: bulk and tone intact. Fine motor movements reduced bilaterally. No pronator drift. Asterixis bilaterally. She would not cooperate with formal strength testing but moved all extremities equally. Reflexes: 2+ at the biceps, triceps, and brachioradialis; reduced at the patella and achilles tendons bilaterally; toes neutral bilaterally; Coordination: FTN and HTS intact bilaterally Gait: deferred Results Last Vital Signs Temp 36.5 C 08/11/18 08:06 Pulse 68 08/11/18 08:06 Resp 18 08/11/18 08:06 BP 123/61 08/11/18 08:06 Pulse Ox 98 08/11/18 08:06 Labs : 08/11/18 06:45 08/11/18 06:45 Laboratory Results - last 24 hr 08/11/18 08/11/18 08/11/18 06:45 06:45 06:45 WBC 7.24 RBC 3.51 L Hgb 10.5 L Hct 35.4 L MCV 100.9 H MCH 29.9 MCHC 29.7 L RDW 14.8 H Plt Count 356 MPV 9.5 Immature Gran % See Differential Neutrophils % 62.0 Lymphocytes % 22.0 Monocytes % 7.0 Eosinophils % 4.0 Basophils % 0.0 Absolute Neutrophils 4.63 Band Neutrophils 2.0 Absolute Lymphocytes 1.59 Absolute Monocytes 0.51 Absolute Eosinophils 0.29 Absolute Basophils 0.00 Metamyelocytes 1.0 Myelocytes 2.0 Differential Comment Manual differential RBC Morphology See below Polychromasia Present Hypochromasia 1+ Poikilocytosis 2+ Sodium 144 Potassium 4.2 Chloride 114 H Carbon Dioxide 21.0 Anion Gap 9.0 BUN 10 Creatinine 0.93 Estimated GFR/1.73 m2 58.16 Glucose 148 H Calcium 9.2 Magnesium 1.9 [place] 0.82 Vital Signs 08/04/18 17:40 08/04/18 17:46 08/04/18 17:50 08/04/18 18:00 08/04/18 18:01 08/04/18 18:09 08/04/18 18:09 08/04/18 18:10 08/04/18 18:16 08/04/18 18:20 08/04/18 18:30 08/04/18 18:31 08/04/18 18:40 08/04/18 18:46 08/04/18 18:50 08/04/18 19:00 08/04/18 19:01 08/04/18 19:10 08/04/18 19:11 08/04/18 19:45 08/04/18 19:46 08/04/18 19:50 08/04/18 20:00 08/04/18 20:01 08/04/18 20:10 08/04/18 20:16 08/04/18 21:53 08/05/18 01:33 08/05/18 07:50 08/05/18 16:06 08/05/18 17:00 Weight 70 kg 67.6 kg BP 141/89 H 167/68 H 167/68 H 169/70 H 151/79 H 163/62 H 182/58 H 169/79 H 166/77 H 157/114 H 169/80 H 149/71 H 177/71 H 140/77 Blood Pressure Location Lt brachial Position Supine Respiration 27 H 26 H 28 H 31 H 29 H 30 H 21 32 H 20 25 H 31 H 31 H 32 H 31 H 32 H 31 H 32 H 30 H 19 28 H 21 18 19 27 H 18 21 24 17 Pulse 75 74 73 73 70 70 69 79 76 77 76 79 80 65 Temp 36.5 C 37.1 C 37.1 C 37.9 C H 36.2 C L Temp Source Skin Tympanic Tympanic Tympanic Pulse Oximetry (%) 93 L 92 L 92 L 93 L 93 L 93 L 98 93 L 92 L 93 L 93 L 91 L 92 L 92 L 93 L 93 L 92 L 96 95 94 L 93 L 94 L 94 L 94 L 98 98 92 L 96 96 Oxygen Flow Rate 0 1.5 1.5 1 1.5 15 08/05/18 18:59 08/05/18 19:00 08/06/18 02:55 08/06/18 04:24 08/06/18 07:45 08/06/18 16:00 08/06/18 23:24 08/07/18 07:45 08/07/18 07:50 08/07/18 16:35 08/08/18 00:54 08/08/18 07:39 08/08/18 16:07 08/09/18 00:08 08/09/18 07:45 08/09/18 15:57 08/09/18 23:00 08/10/18 04:18 08/10/18 07:29 08/10/18 15:54 08/11/18 00:15 08/11/18 08:06 165/66 H 134/71 135/70 128/70 167/71 H 142/88 H 126/74 141/78 H 157/84 H 148/76 H 143/73 H 126/66 142/73 H 142/73 H 131/74 138/72 159/84 H 168/82 H 123/61 18 22 18 18 16 22 20 20 19 18 22 18 20 16 15 18 18 18 18 72 58 L 56 L 64 71 84 80 82 84 74 81 71 70 70 82 78 82 75 68 36.7 C 37.2 C 36.3 C L 36.5 C 36.5 C 37.2 C 37.1 C 36.4 C L 36.1 C L 36.6 C 36.4 C L 36.6 C 36.7 C 36.7 C 36.2 C L 36.1 C L 36.3 C L 36.3 C L 36.5 C Tympanic Tympanic Tympanic Tympanic Tympanic Tympanic Tympanic Tympanic Tympanic Tympanic Tympanic Tympanic Tympanic Tympanic Tympanic Tympanic Tympanic Tympanic Skin 95 95 95 95 98 91 L 96 94 L 93 L 93 L 92 L 93 L 97 94 L 96 98 98 95 97 95 98 98 1 1 1 1 1 0 0.5 0 0 0 0 0 0 0 0 0 0 0 0 0 0 0 Ambulatory Orders Medication Instructions Recorded acetaminophen 1 tab PO Q6H PRN 10/19/15 pen needle, diabetic [BD #100 ea 01/30/16 Ultra-Fine Tiffany Pen Needle] lancets [OneTouch Delica Lancets] #100 ea 03/07/16 blood sugar diagnostic [OneTouch #200 strip 03/10/17 Ultra Test] mirtazapine 30 mg PO DAILY #90 tab-cap 09/25/17 apixaban [Eliquis] 5 mg PO BID #60 tab 12/12/17 cinacalcet [Sensipar] 30 mg PO DAILY #90 tab-cap 01/05/18 lithium carbonate 150 mg PO BID #180 cap 01/13/18 insulin glargine [Lantus U-100 50 units SUB-Q DAILY #3 vial 03/02/18 Insulin] polyethylene glycol 3350(bulk) 17 gm PO DAILY PRN #1200 g 03/24/18 levothyroxine 100 mcg PO DAILY #90 tab-cap 05/20/18 insulin syringe-needle U-100 [BD #100 syringe 06/17/18 Insulin Syringe] trazodone 50 mg tablet 100 mg PO DAILY tab 07/31/18
--- NOTE | 2018-08-11 08:35 | NCONE_ITS ---
Date of service: 08/11/18 Assessment and Plan (1) Toxic metabolic encephalopathy: Current visit: Yes Status: Acute Ms. Sharma is a 78-year-old woman of unknown handedness who was admitted on 08/04/2018 with several days of lethargy and generalized weakness along with altered mental status found to have an elevated lithium level and a urinary tract infection. She continues to have altered mental status consistent with delirium. It is unclear what her baseline is though she did apparently live independently despite being mostly wheelchair bound. It sounds like she has 2 children who live close by and are involved in her care. Her exam was somewhat limited, but was most notable for asterixis indicating ongoing toxic metabolic encephalopathy. [place] is slow to diffuse in and out of the brain and just because her serum level is now within normal range does not mean that her brain level is within normal range. Encephalopathy from lithium toxicity can take several weeks to clear. There are cases of irreversible lithium toxicity in the medical literature. Workup for other metabolic etiologies for altered mental status can also be pursued per primary team. Consider psychiatry consult if there is concern this is not delirium. She can follow-up in the neurology clinic after discharge for further evaluation of her mental status. Thank you for this consultation. (2) [place] toxicity: Current visit: Yes Status: Acute (3) UTI (urinary tract infection): Current visit: Yes Status: Acute (4) Delirium: Current visit: Yes Status: Acute History of Present Illness Chief Complaint: altered mental status Narrative: Ms. Sharma is a 78-year-old woman of unknown handedness with a past medical history of bipolar disorder, diabetes, paroxysmal atrial fibrillation, hypertension, hypothyroidism, and hyperparathyroidism to name a few issues. She was brought to the ER on 08/04/2018 by her daughter with a one-month history of diarrhea and several days of increasing lethargy and altered mental status. Her lithium level was elevated at 1.76 and she was also found to have urinary tract infection. She was admitted and treated with IV antibiotics. Her lithium level has since come down to 0.81 and her medication was restarted. However, she has remained persistently confused. Her affect is pleasant but she remains disoriented with hallucinations versus delusions. I was unable to speak with her family, but it appears that at baseline she is fairly independent and normally oriented. She is generally wheelchair bound but can ambulate short distances with a walker at home. She underwent MRI of her brain which I was able to review. It shows moderate generalized cerebral atrophy. Also shows old bilateral basal ganglia infarcts and a questionable old infarct in the left occipital lobe. She had a normal TSH. Consults Requesting physician: Vikas Montoya Review of Systems Review of Systems All systems reviewed & are unremarkable except as noted in HPI and below PFSH Medical History Ulcer of foot (Acute) Malignant neoplasm of female breast (Acute) Iatrogenic pulmonary embolism and infarction (Acute 07/31/12) Hyperparathyroidism, unspecified (Acute) Hyperlipidemia (Acute) Depressive disorder (Acute) Atherosclerosis of [place] coronary artery (Acute) Paroxysmal atrial fibrillation (Acute) Diabetes type 2, uncontrolled (Chronic) Chronic diabetic ulcer of left foot determined by examination (Chronic) Bipolar 1 disorder (Chronic) Hypothyroidism (Chronic) Hypertension (Chronic) Insomnia (Chronic) Edema, peripheral (Chronic) Social History household members: none number of children: 4 Smoking/Tobacco Use Status: Never alcohol intake: never substance use type: does not use additional social history: She lives alone. Surgical History Amputated toe of right foot (Acute) Amputated toe of left foot (Acute) Amputation (01/08/11) Biopsy of breast Cholecystectomy Correction, [place] (04/20/03) Debridement Ulcer (08/27/00) Debridement Ulcer (04/06/12) Debridement Ulcer (04/09/12) Fracture, Open Treatment Incision & Drainage, Abscess or Hematoma (03/16/04) Lobectomy Parathyroidectomy Visit Medication and Allergies Active Medications Generic Name Dose Route Start Last Admin Trade Name Freq PRN Reason Stop Dose Admin Acetaminophen 650 mg 08/04/18 20:30 Tylenol PO Q6H PRN PRN Apixaban 5 mg 08/05/18 08:30 08/10/18 19:45 Eliquis PO 5 mg BID CM Administration Dextrose 0 gm 08/05/18 20:20 Insta-Glucose PO DIRECTED PRN Dextrose/Water 0 gm 08/05/18 20:20 IVP DIRECTED PRN Dimethicone/Zinc Oxide 0 gm 08/04/18 20:16 Devin Protect Cream TP PRN PRN Ceftriaxone Sodium 1 gm/ 50 mls @ 100 mls/hr 10/10/18 20:00 08/10/18 20:15 Sodium Chloride IVPB Infused Q24H CM Infusion Insulin Aspart 0 units 08/06/18 08:00 08/11/18 08:04 Novolog Flexpen SC Not Given 0800,1200,1700 [facility] Protocol Insulin Detemir 20 units 08/10/18 22:00 08/10/18 21:55 Levemir Flextouch Pen SC 20 units HS CM Administration Levothyroxine Sodium 100 mcg 08/05/18 06:00 08/10/18 06:38 Levothroid PO 100 mcg 0600 CM Administration [place] Carbonate 150 mg 08/09/18 08:30 08/10/18 08:13 Eskalith PO 150 mg DAILY CM Administration Patients Own ( 30 mg 08/08/18 08:30 08/10/18 08:13 Cinacalcet [Sensipar PO 30 mg ] 30 Mg) DAILY CM Administration Trazodone HCl 50 mg 08/07/18 22:00 08/10/18 21:55 Desyrel PO 50 mg HS CM Administration White Petrol/Mineral Oil/Lanolin 120 gm 08/08/18 08:30 08/10/18 08:13 Eucerin Creme TP 1 applic DAILY CM Administration Allergies ciprofloxacin Adverse Reaction (Intermediate, Unverified 08/04/18 19:11) Anorexia fluoxetine Adverse Reaction (Intermediate, Unverified 08/04/18 19:11) Tremor, weakness metformin Adverse Reaction (Unknown, Unverified 08/04/18 19:11) Diarrhea Exam Narrative Exam Narrative: Physical Exam: Gen: Patient of apparent stated age, NAD Head and face: no facial or cranial abnormalities Neck: Supple, no meningismus, no occipital tenderness CV: RRR Resp: CTA B/L Abd: soft, nontender, nondistended Ext: No edema. No clubbing or cyanosis. No bony deformity. Chronic vascular skin changes in LE. Neuro Exam: Language: fluency, naming, and repetition intact; she declined comprehension testing citing fatigue Mental Status: AAO to self only; did know she was in [place] and [facility] with some prodding; Speech: no dysarthria Cranial nerves: Funduscopy: not performed CN II: visual nava intact CN III, IV, : extraocular movements intact, no nystagmus, pupils symmetric and reactive to light CN V: face sensation intact to PP CN VII: no facial asymmetry noted CN VIII: hearing intact bilaterally CN IX, X: palate rises symmetrically CN XI: trapezius/SCM 5/5 bilaterally CN XII: protrudes tongue symmetrically Sensory: intact to PP in all extremities; Motor: bulk and tone intact. Fine motor movements reduced bilaterally. No pronator drift. Asterixis bilaterally. She would not cooperate with formal strength testing but moved all extremities equally. Reflexes: 2+ at the biceps, triceps, and brachioradialis; reduced at the patella and achilles tendons bilaterally; toes neutral bilaterally; Coordination: FTN and HTS intact bilaterally Gait: deferred Results Last Vital Signs Temp 36.5 C 08/11/18 08:06 Pulse 68 08/11/18 08:06 Resp 18 08/11/18 08:06 BP 123/61 08/11/18 08:06 Pulse Ox 98 08/11/18 08:06 Labs : 08/11/18 06:45 08/11/18 06:45 Laboratory Results - last 24 hr 08/11/18 08/11/18 08/11/18 06:45 06:45 06:45 WBC 7.24 RBC 3.51 L Hgb 10.5 L Hct 35.4 L MCV 100.9 H MCH 29.9 MCHC 29.7 L RDW 14.8 H Plt Count 356 MPV 9.5 Immature Gran % See Differential Neutrophils % 62.0 Lymphocytes % 22.0 Monocytes % 7.0 Eosinophils % 4.0 Basophils % 0.0 Absolute Neutrophils 4.63 Band Neutrophils 2.0 Absolute Lymphocytes 1.59 Absolute Monocytes 0.51 Absolute Eosinophils 0.29 Absolute Basophils 0.00 Metamyelocytes 1.0 Myelocytes 2.0 Differential Comment Manual differential RBC Morphology See below Polychromasia Present Hypochromasia 1+ Poikilocytosis 2+ Sodium 144 Potassium 4.2 Chloride 114 H Carbon Dioxide 21.0 Anion Gap 9.0 BUN 10 Creatinine 0.93 Estimated GFR/1.73 m2 58.16 Glucose 148 H Calcium 9.2 Magnesium 1.9 [place] 0.82 Vital Signs 3 l l l l 08/04/18 17:40 l l 08/04/18 17:46 l l 08/04/18 17:50 l l 08/04/18 18:00 l l 08/04/18 18:01 l l 08/04/18 18:09 l l 08/04/18 18:09 l l 08/04/18 18:10 l l 08/04/18 18:16 l l 08/04/18 18:20 l l 08/04/18 18:30 l l 08/04/18 18:31 l l 08/04/18 18:40 l l 08/04/18 18:46 l l 08/04/18 18:50 l l 08/04/18 19:00 l l 08/04/18 19:01 l l 08/04/18 19:10 l l 08/04/18 19:11 l l 08/04/18 19:45 l l 08/04/18 19:46 l l 08/04/18 19:50 l l 08/04/18 20:00 l l 08/04/18 20:01 l l 08/04/18 20:10 l l 08/04/18 20:16 l l 08/04/18 21:53 l l 08/05/18 01:33 l l 08/05/18 07:50 l l 08/05/18 16:06 l l 08/05/18 17:00 l l 08/05/18 18:59 l l 08/05/18 19:00 l l 08/06/18 02:55 l l 08/06/18 04:24 l l 08/06/18 07:45 l l 08/06/18 16:00 l l 08/06/18 23:24 l l 08/07/18 07:45 l l 08/07/18 07:50 l l 08/07/18 16:35 l l 08/08/18 00:54 l l 08/08/18 07:39 l l 08/08/18 16:07 l l 08/09/18 00:08 l l 08/09/18 07:45 l l 08/09/18 15:57 l l 08/09/18 23:00 l l 08/10/18 04:18 l l 08/10/18 07:29 l l 08/10/18 15:54 l l 08/11/18 00:15 l l 08/11/18 08:06 l l Weight 70 kg 67.6 kg l l BP 141/89 H 167/68 H 167/68 H 169/70 H 151/79 H 163/62 H 182/58 H 169/79 H 166/77 H 157/114 H 169/80 H 149/71 H 177/71 H 140/77 165/66 H 134/71 135/ 70 128/70 167/71 H 142/88 H 126/74 141/78 H 157/84 H 148/76 H 143/73 H 126/66 142/73 H 142/73 H 131/74 138/72 159/84 H 168/82 H 123/61 l l Blood Pressure Location Lt brachial l l Position Supine l l Respiration 27 H 26 H 28 H 31 H 29 H 30 H 21 32 H 20 25 H 31 H 31 H 32 H 31 H 32 H 31 H 32 H 30 H 19 28 H 21 18 19 27 H 18 21 24 17 18 22 18 18 16 22 20 20 19 18 22 18 20 16 15 18 18 18 18 l l Pulse 75 74 73 73 70 70 69 79 76 77 76 79 80 65 72 58 L 56 L 64 71 84 80 82 84 74 81 71 70 70 82 78 82 75 68 l l Temp 36.5 C 37.1 C 37.1 C 37.9 C H 36.2 C L 36.7 C 37.2 C 36.3 C L 36.5 C 36.5 C 37.2 C 37.1 C 36.4 C L 36.1 C L 36.6 C 36.4 C L 36.6 C 36.7 C 36.7 C 36.2 C L 36.1 C L 36.3 C L 36.3 C L 36.5 C l l Temp Source Skin Tympanic Tympanic Tympanic Tympanic Tympanic Tympanic Tympanic Tympanic Tympanic Tympanic Tympanic Tympanic Tympanic Tympanic Tympanic Tympanic Tympanic Tympanic Tympanic Tympanic Tympanic Skin l l Pulse Oximetry (%) 93 L 92 L 92 L 93 L 93 L 93 L 98 93 L 92 L 93 L 93 L 91 L 92 L 92 L 93 L 93 L 92 L 96 95 94 L 93 L 94 L 94 L 94 L 98 98 92 L 96 96 95 95 95 95 98 91 L 96 94 L 93 L 93 L 92 L 93 L 97 94 L 96 98 98 95 97 95 98 98 l l Oxygen Flow Rate 0 1.5 1.5 1 1.5 15 1 1 1 1 1 0 0.5 0 0 0 0 0 0 0 0 0 0 0 0 0 0 0 Ambulatory Orders Medication Instructions Recorded acetaminophen 1 tab PO Q6H PRN 10/19/15 pen needle, diabetic [BD #100 ea 01/30/16 Ultra-Fine Tiffany Pen Needle] lancets [[facility] Lancets] #100 ea 03/07/16 blood sugar diagnostic [Oneuch #200 strip 03/10/17 Ultra Test] mirtazapine 30 mg PO DAILY #90 tab-cap 09/25/17 apixaban [Eliquis] 5 mg PO BID #60 tab 12/12/17 cinacalcet [Sensipar] 30 mg PO DAILY #90 tab-cap 01/05/18 lithium carbonate 150 mg PO BID #180 cap 01/13/18 insulin glargine [Lantus U-100 50 units SUB-Q DAILY #3 vial 03/02/18 Insulin] polyethylene glycol 3350(bulk) 17 gm PO DAILY PRN #1200 g 03/24/18 levothyroxine 100 mcg PO DAILY #90 tab-cap 05/20/18 insulin syringe-needle U-100 [BD #100 syringe 06/17/18 Insulin Syringe] trazodone 50 mg tablet 100 mg PO DAILY tab 07/31/18
[2018-08-11] MEDS: Lithium Carbonate 150 MG CAP PO (09:49)
[2018-08-11] MEDS: Apixaban 5 MG TAB PO ×2 (09:49→19:27)
--- NOTE | 2018-08-11 11:43 | NT_ITS ---
Date of service: 08/11/18 Time of Service: 11:42 PT Notes 08/11/18 Hold morning PT. Patient sleeping. Kalyani Clifton, COMPARISON SHOPPER
[2018-08-11] MEDS: Insulin Aspart 300 UNITS/3 ML PEN SC ×2 (12:22→17:02)
--- NOTE | 2018-08-11 13:25 | PT.INPN ---
Date of service: 08/11/18 Time of Service: 13:21 PT Notes Inpatient Physical Therapy Progress Note Date: 08/12/18 Dates of Service: 08/05/18-08/11/18 PRECAUTIONS: Fall precautions SUBJECTIVE: Pt sitting in chair, just finished lunch, agreeable to PT session. States she would like to use the commode before going back to bed. OBJECTIVE: PAIN: no c/o pain BED MOBILITY/TRANSFERS Rolling L/R: independent Sit-stand: CGA with FWW Stand-sit: SBA Chair-commode: CGA with FWW Commode-bed: CGA with FWW Sit-supine: HOB flat, supervision GAIT * pt wearing own shoes for gait Assistive Device: FWW Assist: CGA Distance: 25ftx2 Deviation: slow step through gait pattern with decreased stride and segun. Pt reports feeling weak with gait deferring extending gait distance due to weakness. Pt used bedside commode for urinating prior to return to bed, required Mele for don/doff pull up and clean up from toileting. Pt positioned back in bed with fall alarm activated. Balance: Static Sitting: normal Dynamic Sitting: normal Static Standing: fair Dynamic Standing:fair Assessment: Pt is a 72yr old female admitted with urinary tract infection, dehydration in setting of diabetes mellitus type II, diabetic ulcer left foot, amputation bilateral feet toes, Bipolar disorder 1, left femur fracture s/p nailing 08/30/15, peripheral edema, neurogenic bladder, urinary retention, lobectomy. Patient has made slow progress this week with strengthening and mobility training, limited by fatigue, weakness and some confusion. Pt progressed in bed transfers from SBA to supervision, and in gait from CGA with FWW 4 steps to CGA with FWW 40-50ft. Pt continues with weakness, decreased standing balance and a high risk for falls requiring FWW for gait stability and one person assist for safety. Pt is not at her baseline level of independent functioning and would benefit from continued therapy intervention for strengthening and progressive mobility training. Due to mental status changes and decreased safety awareness and strength, it is recommended she [facility] prior to return to home setting. Goals: Goals X1 week 1. Supine-Sit : independent 2. Sit-Supine : independent 3. Sit-Stand : SBA with FWW 4. Stand-Sit : SBA 5. Bed-Chair :SBA with FWW 6. Chair-Bed : SBA with FWW 7. Gait: SBA with FWW 50ftx2 Pt met goals # 3, continue PT toward remaining goals Plan of Care/Treatment Plan: Continue 1-2x/day, 7 days/week x 1 week. Continue plan of care has been reviewed with the SPANISHER providing the service under Physical Therapy direction. Continue Physical Therapy intervention for strengthening, bed mobility, transfers, gait, stairs, balance training, use of assistive device. DISCHARGE RECOMMENDATIONS: shelter care facility for rehab TREATMENT CODE/TIME: 23min [id number] Janet Fatima PT
--- NOTE | 2018-08-11 13:35 | INPN_ITS ---
Date of service: 08/11/18 Time of Service: 13:21 PT Notes Inpatient Physical Therapy Progress Note Date: 08/12/18 Dates of Service: 08/05/18-08/11/18 PRECAUTIONS: Fall precautions SUBJECTIVE: Pt sitting in chair, just finished lunch, agreeable to PT session. States she would like to use the commode before going back to bed. OBJECTIVE: PAIN: no c/o pain BED MOBILITY/TRANSFERS Rolling L/R: independent Sit-stand: CGA with FWW Stand-sit: SBA Chair-commode: CGA with FWW Commode-bed: CGA with FWW Sit-supine: HOB flat, supervision GAIT * pt wearing own shoes for gait Assistive Device: FWW Assist: CGA Distance: 25ftx2 Deviation: slow step through gait pattern with decreased stride and segun. Pt reports feeling weak with gait deferring extending gait distance due to weakness. Pt used bedside commode for urinating prior to return to bed, required Mele for don/doff pull up and clean up from toileting. Pt positioned back in bed with fall alarm activated. Balance: Static Sitting: normal Dynamic Sitting: normal Static Standing: fair Dynamic Standing:fair Assessment: Pt is a 72yr old female admitted with urinary tract infection, dehydration in setting of diabetes mellitus type II, diabetic ulcer left foot, amputation bilateral feet toes, Bipolar disorder 1, left femur fracture s/p nailing 08/30/15, peripheral edema, neurogenic bladder, urinary retention, lobectomy. Patient has made slow progress this week with strengthening and mobility training, limited by fatigue, weakness and some confusion. Pt progressed in bed transfers from SBA to supervision, and in gait from CGA with FWW 4 steps to CGA with FWW 40-50ft. Pt continues with weakness, decreased standing balance and a high risk for falls requiring FWW for gait stability and one person assist for safety. Pt is not at her baseline level of independent functioning and would benefit from continued therapy intervention for strengthening and progressive mobility training. Due to mental status changes and decreased safety awareness and strength, it is recommended she transition to [facility] for re[facility]ba stay prior to return to home setting. Goals: Goals X1 week 1. Supine-Sit : independent 2. Sit-Supine : independent 3. Sit-Stand : SBA with FWW 4. Stand-Sit : SBA 5. Bed-Chair :SBA with FWW 6. Chair-Bed : SBA with FWW 7. Gait: SBA with FWW 50ftx2 Pt met goals # 3, continue PT toward remaining goals Plan of Care/Treatment Plan: Continue 1-2x/day, 7 days/week x 1 week. Continue plan of care has been reviewed with the MILITARY LOGISTICS SPECIALIST providing the service under Physical Therapy direction. Continue Physical Therapy intervention for strengthening, bed mobility, transfers, gait, stairs, balance training, use of assistive device. DISCHARGE RECOMMENDATIONS: [facility] for [facility] TREATMENT CODE/TIME: 23min [id number] Janet Fatima PT
--- NOTE | 2018-08-11 13:55 | PGE_ITS ---
Assessment and Plan (1) UTI (urinary tract infection): Current visit: Yes Status: Acute Urine Culture grew Klebsiella resistant to Ampicillin only. She has had # 7 doses of IV ceftriaxone. Will extend her course to 10 days of treatment, given that she is just beginning to improve today. (2) [place] toxicity: Current visit: Yes Status: Acute Her [place] level remains within normal limits again today. She has been restarted at a lower dose. Will continue to monitor lithium levels. (3) Toxic metabolic encephalopathy: Current visit: Yes Status: Acute Her mental status has improved today. This may have been related to her UTI, with improvement in her mental status as her UTI is treated. Continue to monitor mental status. (4) Bipolar 1 disorder: Current visit: Yes Status: Chronic Continue [place] at lower dose. Continue to monitor levels. (5) Diabetes type 2, uncontrolled: Current visit: Yes Status: Chronic Her blood sugars have been in an acceptable range. Continue basal insulin , sliding scale coverage and ADA diet. (6) Paroxysmal atrial fibrillation: Current visit: Yes Status: Acute Continue Anticoagulation with Apixaban. Rate remains controlled without rochelle agents. Continue to monitor. 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 Will need follow up for biopsy as an outpatient. (8) Discharge planning issues: Current visit: Yes Status: Acute She is a DNR/DNI. Continue to monitor on acute care status. She will likely need to [facility] to a jail facility upon discharge from the hospital. Care management is working on referrals. This case was discussed with Dr. Montoya who is in agreement. Subjective Interval history since last seen: Luis is a 78 yo woman with obesity, PAF, HLD, DM, bipolar disorder treated with lithium, hypothyroidism, hyperparathyroidism who was admitted after complaining of ongoing diarrhea and lethargy. In the ER was found to have UTI with pyuria. [place] levels were also noted to be elevated. Luis has also had altered mental status and lethargy which was initially thought to be secondary to lithium toxicity, however her mental status did not improve initially as her lithium levels normalized. MRI of the head yesterday showed no acute intracranial process with evidence of old lacunar infarct. Today, she appears to be improving. She is fatigued, but opens her eyes and answers questions appropriately. She is able to verbalize where she is and that the month is July. She denies any dysuria or hematuria, she is taking in orals well, with no nausea or vomiting. She continues to have some diarrhea, but this is improving. She is only having about 2 episodes of diarrhea per day. We discussed that it may be beneficial for her to go to a rehab prior to returning home, she is in agreement with this. Exam Const General: cooperative, comfortable and no acute distress Orientation: alert, awake and oriented x3 HENMT Head: normocephalic (Hair is thinning.) and atraumatic Eyes Conjunctivae: conjunctivae normal (noninjected.) Sclera: sclerae normal (nonicteric.) Pupils: PERRL Neck Neck: supple and no JVD Resp Auscultation: clear to auscultation bilaterally, no rales, no rhonchi and no wheezes Cardio Rate: regular rate and not tachycardic Rhythm: regular rhythm Heart Sounds: S1 normal, S2 normal, no gallops, no murmurs and no rubs Pulses: normal peripheral pulses GI Palpation: soft, no masses and nontender Auscultation: normal bowel sounds Extrem General: no clubbing, cyanosis or edema (She has 3 toes left on each foot. ) Objective Objective Clinical Data: Abnormal lab results 08/11/18 08/11/18 Range/Units 06:45 06:45 RBC 3.51 L (4.00-5.20) m/cumm Hgb 10.5 L (12.0-15.5) g/dL Hct 35.4 L (36.0-46.0) % MCV 100.9 H (80-95) fL MCHC 29.7 L (32.0-36.0) g/dL RDW 14.8 H (11.7-14.6) % Chloride 114 H (98-107) mmol/L Glucose 148 H (70-100) mg/dL Vital Signs Temperature 36.5 C 08/11/18 08:06 Temperature Source Skin 08/11/18 08:06 Pulse 68 08/11/18 08:06 Pulse Rhythm Regular 08/11/18 11:02 Pulse 77 08/04/18 20:16 Respiratory Rate 18 08/11/18 08:06 Respiratory Effort Non-Labored 08/11/18 11:02 Respiratory Depth Normal 08/11/18 11:02 Respiratory Pattern Normal 08/11/18 11:02 Blood Pressure 123/61 08/11/18 08:06 Blood Pressure Mean 121 08/04/18 20:16 Blood Pressure Position Supine 08/04/18 18:09 Pulse Oximetry 98 08/11/18 08:06 Oxygen Delivery Method Room Air 08/11/18 08:06 Oxygen Flow Rate 0 08/11/18 08:06 Pain Level 0 08/10/18 07:29 Comment 08/06/18 07:45 Intake & Output 08/10/18 08/11/18 08/11/18 23:59 11:59 23:59 Intake Total 580 / 580 450 / 450 240 / 240 Output Total 550 / 550 600 / 600 Balance 30 / 30 -150 / -150 240 / 240 Intake: IV 100 / 100 Oral 480 / 480 450 / 450 240 / 240 Output: Urine 550 / 550 600 / 600 Other: Urine Color Yellow Yellow Urine Appearance Clear Clear Urine Odor Normal Comment with scheduled toileting, pt has remained continent of bowel and bladder night entire Stool Size Moderate Moderate Moderate Stool Characteristics Formed Soft Soft Liquid Mucoid Brown Voiding Methods Bedside Commode Bedside Commode Diaper Incontinent Laboratory Results WBC 7.24 k/cumm (4.4-10.8) 08/11/18 06:45 RBC 3.51 m/cumm (4.00-5.20) L 08/11/18 06:45 Hgb 10.5 g/dL (12.0-15.5) L 08/11/18 06:45 Hct 35.4 % (36.0-46.0) L 08/11/18 06:45 MCV 100.9 fL (80-95) H 08/11/18 06:45 MCH 29.9 pg (27.0-33.0) 08/11/18 06:45 MCHC 29.7 g/dL (32.0-36.0) L 08/11/18 06:45 RDW 14.8 % (11.7-14.6) H 08/11/18 06:45 Plt Count 356 x1000/uL (130-400) 08/11/18 06:45 MPV 9.5 fL (8.0-11.0) 08/11/18 06:45 Immature Gran % See Differential 08/11/18 06:45 Neutrophils % 62.0 08/11/18 06:45 Lymphocytes % 22.0 08/11/18 06:45 Monocytes % 7.0 08/11/18 06:45 Eosinophils % 4.0 08/11/18 06:45 Basophils % 0.0 08/11/18 06:45 Absolute Neutrophils 4.63 k/cumm (1.2-6.7) 08/11/18 06:45 Band Neutrophils 2.0 % 08/11/18 06:45 Absolute Lymphocytes 1.59 k/cumm (1.2-3.4) 08/11/18 06:45 Absolute Monocytes 0.51 k/cumm (0.11-0.7) 08/11/18 06:45 Absolute Eosinophils 0.29 k/cumm (0.0-0.7) 08/11/18 06:45 Absolute Basophils 0.00 k/cumm (0.0-0.2) 08/11/18 06:45 Metamyelocytes 1.0 % 08/11/18 06:45 Myelocytes 2.0 % 08/11/18 06:45 Differential Comment Manual differential 08/11/18 06:45 RBC Morphology See below 08/11/18 06:45 Polychromasia Present 08/11/18 06:45 Hypochromasia 1+ 08/11/18 06:45 Poikilocytosis 2+ 08/11/18 06:45 PT 13.0 sec (9.3-10.8) H 08/04/18 17:45 INR 1.3 (1.0-3.5) 08/04/18 17:45 APTT 28.5 sec (21.0-31.4) 08/04/18 17:45 VBG pH 7.37 (7.32-7.43) 08/04/18 17:45 VBG pCO2 38 mm/Hg (34-47) 08/04/18 17:45 VBG pO2 50 mm/Hg (28-44) H 08/04/18 17:45 VBG HCO3 22 mmol/L (22-28) 08/04/18 17:45 VBG Total CO2 20 mmol/L (22-29) L 08/04/18 17:45 VBG O2 Saturation 85 % (70-80) H 08/04/18 17:45 VBG Base Excess -3.3 mmol/L (-3-3) L 08/04/18 17:45 Sodium 144 mmol/L (136-145) 08/11/18 06:45 Potassium 4.2 mmol/L (3.5-5.1) 08/11/18 06:45 Chloride 114 mmol/L (98-107) H 08/11/18 06:45 Carbon Dioxide 21.0 mmol/L (21.0-32.0) 08/11/18 06:45 Anion Gap 9.0 mmol/L (3-11) 08/11/18 06:45 BUN 10 mg/dL (7-18) 08/11/18 06:45 Creatinine 0.93 mg/dL (0.55-1.02) 08/11/18 06:45 Estimated GFR/1.73 m2 58.16 (mL/min/1.73m2) 08/11/18 06:45 Glucose 148 mg/dL (70-100) H 08/11/18 06:45 Calcium 9.2 mg/dL (8.5-10.1) 08/11/18 06:45 Magnesium 1.9 mg/dL (1.8-2.4) 08/11/18 06:45 Total Bilirubin 0.2 mg/dL (0.2-1.0) 08/07/18 06:40 Conjugated Bilirubin 0.09 mg/dL (0.00-0.20) 08/07/18 06:40 AST 19 U/L (15-37) 08/07/18 06:40 ALT 32 U/L (12-78) 08/07/18 06:40 Alkaline Phosphatase 187 U/L (46-116) H 08/07/18 06:40 Ammonia 26 umol/L (11-32) 08/04/18 17:45 Creatine Kinase 14 U/L (26-192) L 08/04/18 17:45 Troponin I 0.04 ng/mL (0.00-0.06) 08/04/18 17:45 Total Protein 6.2 g/dL (6.4-8.2) L 08/07/18 06:40 Albumin 1.6 g/dL (3.4-5.0) L 08/07/18 06:40 TSH 1.03 uIU/mL (0.358-3.74) 08/04/18 17:45 Urine Color Yellow (Yellow) 08/04/18 18:30 Urine Clarity Cloudy 08/04/18 18:30 Urine pH 6.0 (5-8) 08/04/18 18:30 Ur Specific Wink 1.020 (1.005-1.025) 08/04/18 18:30 Urine Protein 100 mg/dL (Negative) H 08/04/18 18:30 Urine Ketones 15 mg/dL (Negative) H 08/04/18 18:30 Urine Blood Moderate (Negative) H 08/04/18 18:30 Urine Nitrite Negative (Negative) 08/04/18 18:30 Urine Bilirubin Small (Negative) H 08/04/18 18:30 Urine Urobilinogen 1.0 EU/dL (Up TO 0.2) H 08/04/18 18:30 Ur Leukocyte Esterase Small (Negative) H 08/04/18 18:30 Urine RBC >50 (0-2) H 08/04/18 18:30 Urine WBC >50 HPF (0-5) 08/04/18 18:30 Ur Epithelial Cells Rare HPF (Negative) 08/04/18 18:30 Urine Crystals Negative HPF (Negative) 08/04/18 18:30 Urine Bacteria Moderate HPF (Negative) 08/04/18 18:30 Urine Casts Negative LPF (Negative) 08/04/18 18:30 Urine Mucus Moderate (Negative) 08/04/18 18:30 Urine Other Negative (Negative) 08/04/18 18:30 Ur Culture Indicated? Yes 08/04/18 18:30 Urine Glucose Negative mg/dL (Negative) 08/04/18 18:30 Stool Campylobacter PCR Cancelled 08/04/18 Unknown Stool Salmonella PCR Cancelled 08/04/18 Unknown Stool Shigella PCR Cancelled 08/04/18 Unknown [place] 0.82 mmol/L (0.60-1.20) 08/11/18 06:45 Shiga Toxin (PCR) Cancelled 08/04/18 Unknown
[2018-08-11 16:07] VITALS: BP 128/80; PULSE 81; RESP 18; TEMP 36.6; O2SAT 96
--- NOTE | 2018-08-11 16:09 | PDOC.CMPRO ---
Care Management Progress Note S/O: Luis is lying in bed when CM meets with her. She opens her eyes and engages pleasantly with this creative services writer. She is agreeable to SNF referrals and placement. CM reviews placement information; Luis agrees to referrals being faxed to SNFs in [place], [place], and [place], [place]. CM faxed referral and will follow up with facilities tomorrow. A: 78 year old female addmitted to [facility] 08/04/18 for UTI, Dehydration, Weakness, Diarrhea P: Per morning meeting and discussions with PT and MD- the interdepartmental team all report Luis is not safe to be residing home alone at this time. Luis is also agreeable to SNF S/T prior to returning home and will likely need a few weeks for acute delirium to clear per Dr. Leon. CM will continue to support SNF coordination.
--- NOTE | 2018-08-11 16:16 | CMPROGNOTE_ITS ---
Care Management Progress Note S/O: Luis is lying in bed when CM meets with her. She opens her eyes and engages pleasantly with this software writer. She is agreeable to SNF referrals and placement. CM reviews placement information; Luis agrees to referrals being faxed to SNFs in [place], [place], and [place], [place]. CM faxed referral and will follow up with facilities tomorrow. A: 78 year old female addmitted to [facility] 08/04/18 for UTI, Dehydration, Weakness , Diarrhea P: Per morning meeting and discussions with PT and MD- the interdepartmental team all report Luis is not safe to be residing home alone at this time. Luis is also agreeable to SNF S/T prior to returning home and will likely need a few weeks for acute delirium to clear per Dr. Leon. CM will continue to support SNF coordination.
[2018-08-11] MEDS: Normal Saline Flush 10 ML SYR IVP (20:18)
[2018-08-11] MEDS: traZODone 50 MG TAB PO (21:19)
[2018-08-12 00:39] VITALS: BP 175/58; PULSE 75; RESP 18; TEMP 36.5; O2SAT 97
[2018-08-12] MEDS: Levothyroxine 100 MCG TAB PO (06:36)
[2018-08-12 07:22] LABS: Abs Immature Grans 0.24 k/cumm (0.0-0.09); HCT 36.7 % (36.0-46.0); HGB 10.9 g/dL (12.0-15.5); Mean Corp. HGB Concentration 29.7 g/dL (32.0-36.0); Mean Corpuscular Hemoglobin 29.9 pg (27.0-33.0); Mean Corpuscular Volume 100.5 fL (80-95); Mean Platelet Volume 9.4 fL (8.0-11.0); Platelet Count 398 x1000/uL (130-400); RBC 3.65 m/cumm (4.00-5.20); White Blood Cell Count 6.99 k/cumm (4.4-10.8)
[2018-08-12 07:35] LABS: Anion Gap 5.8 mmol/L (3-11); BUN 8 mg/dL (7-18); CO2 24.2 mmol/L (21.0-32.0); CREATININE 0.91 mg/dL (0.55-1.02); Calcium 9.2 mg/dL (8.5-10.1); Chloride 113 mmol/L (98-107); Estimated GFR 59.63 (mL/min/1.73m2); Glucose 104 mg/dL (70-100); Magnesium 1.8 mg/dL (1.8-2.4); Potassium 4.2 mmol/L (3.5-5.1); Sodium 143 mmol/L (136-145)
[2018-08-12 07:40] LABS: Lithium 0.77 mmol/L (0.60-1.20)
[2018-08-12 07:45] VITALS: BP 150/90; PULSE 71; RESP 18; TEMP 36.8; O2SAT 96
[2018-08-12 07:53] LABS: Absolute Eosinophil Count 0.35 k/cumm (0.0-0.7); Atypical Lymphocytes % 2
[2018-08-12 07:54] LABS: Diff Comment Manual Differential; Poikilocytes 1+
[2018-08-12] MEDS: Apixaban 5 MG TAB PO ×2 (09:29→20:01)
[2018-08-12] MEDS: Lithium Carbonate 150 MG CAP PO (09:29)
[2018-08-12] MEDS: Normal Saline Flush 10 ML SYR IVP ×2 (09:31→20:01)
--- NOTE | 2018-08-12 10:07 | PDOC.CMPRO ---
- If Service Date Differs Date of service: 08/12/18 Time of Service: 10:07 Care Management Progress Note S/O: Luis is lying in bed sleeping when this real estate underwriter visits this morning. CM contacted Luis's daughter Paulette whom states that she will be in today at noon. Paulette states that she has called [facility] and [facility] in regards to SNF placement. CM spoke with Rbaia, [facility], this morning whom states that they are unable to accept Luis as they do not think she would be a good candidate for their facility. LAI has spoken with Jennifer Cantu, and faxed referral for review this morning. LAI has left a message at [place], [facility], as well as [facility] and am currently awaiting call back at this time. LAI notified NORBERT Dent, that daughter Paulette will be in today at noon. A: 78 [facility] old female [facility] for UTI, Dehydration, Weakness, Diarrhea P: SNF placement - referrals have been faxed to multiple facilities, and am currently awaiting response. [facility] is unable to accept, and [facility] has no beds available. CM to continue to outreach to facilities in regards to SNF placement.
--- NOTE | 2018-08-12 10:11 | CMPROGNOTE_ITS ---
- If Service Date Differs Date of service: 08/12/18 Time of Service: 10:07 Care Management Progress Note S/O: Luis is lying in bed sleeping when this ad writer visits this morning. CM contacted Luis's daughter Paulette whom states that she will be in today at noon. Paulette states that she has called [facility] and [facility] in regards to SNF placement. CM spoke with Rabia, [facility], this morning whom states that they are unable to accept Luis as they do not think she would be a good candidate for their facility. LAI has spoken with Jennifer Cantu, and faxed referral for review this morning. LAI has left a message at [place], [facility], as well as [facility] and am currently awaiting call back at this time. LAI notified NORBERT Dent, that daughter Paulette will be in today at noon. A: 78 year old female addmitted to [facility] 08/04/18 for UTI, Dehydration, Weakness , Diarrhea P: SNF placement - referrals have been faxed to multiple facilities, and am currently awaiting response. [facility] is unable to accept, and [facility] has no beds available. CM to continue to outreach to facilities in regards to SNF placement.
--- NOTE | 2018-08-12 10:52 | PT.INTREAT ---
Date of service: 08/12/18 Time of Service: 10:53 PT Notes Inpatient Physical Therapy Treatment Note Date: 08/12/18 PRECAUTIONS: Fall SUBJECTIVE: Luis reports that she is not feeling any better today. OBJECTIVE: PAIN: No complaints of pain BED MOBILITY/TRANSFERS Supine-sit: I with HOB flat Sit-supine: SBA with HOB flat Sit-stand: SBA Stand-sit: SBA GAIT Assistive Device: FWW Weight bearing: Full Assist: SBA Distance: 80' +40' Deviation: Seated rest x1 ASSESSMENT: Patient was able to tolerate a progression in gait distance with FWW support and SBA. She did require seated rest x1, due to fatigue. She would benefit from continued gait and transfer training, as well as strengthening for improved ability to perform daily functional tasks. PLAN: Continue with PTs POC TREATMENT CODE/TIME: 25 minutes; TA x2
[2018-08-12 11:37] LABS: Specimen Description Feces
[2018-08-12 12:05] LABS: Result Positive
--- NOTE | 2018-08-12 12:08 | PGE_ITS ---
Assessment and Plan (1) C. difficile colitis: Current visit: Yes Status: Acute Antigen positive, toxin negative, PCR positive. Her stools have decreased in frequency. Initiate oral vancomycin. (2) UTI (urinary tract infection): Current visit: Yes Status: Acute No UTI symptoms. Mental status has cleared. Urine Culture grew Klebsiella resistant to Ampicillin only. She has had #8 doses of IV ceftriaxone. Will discontinue her IV antibiotics. Continue to monitor. (3) [place] toxicity: Current visit: Yes Status: Acute Her [place] level remains within normal limits again today. She has been restarted at a lower dose. Will continue to monitor lithium levels. She will need to follow up with her psychiatric provider in regard to her lower lithium dose. (4) Toxic metabolic encephalopathy: Current visit: Yes Status: Acute Her mental status remain improved today. This may have been related to her UTI, with improvement in her mental status as her UTI is treated. Continue to monitor mental status. (5) Bipolar 1 disorder: Current visit: Yes Status: Chronic Continue [place] at lower dose. Continue to monitor levels. (6) Diabetes type 2, uncontrolled: Current visit: Yes Status: Chronic Her blood sugars have been in an acceptable range. Continue basal insulin , sliding scale coverage and ADA diet. (7) Paroxysmal atrial fibrillation: Current visit: Yes Status: Acute Continue Anticoagulation with Apixaban. Rate remains controlled without rochelle agents. Continue to monitor heart rates. 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 Will need follow up for biopsy as an outpatient. Plan to schedule follow up with pulmonology. (9) Discharge planning issues: Current visit: Yes Status: Acute She is a DNR/DNI. Continue to monitor on acute care status. Care management has discussed her case with home health and family members. She seems to be nearing her baseline, consider discharge home with increased services. This case was discussed with Dr. Montoya who is in agreement. Subjective Interval history since last seen: Luis is a 78 yo woman with obesity, PAF, HLD, DM, bipolar disorder treated with lithium, hypothyroidism, hyperparathyroidism who was admitted after complaining of ongoing diarrhea and lethargy. In the ER was found to have UTI with pyuria. [place] levels were also noted to be elevated. Luis has also had altered mental status and lethargy which was initially thought to be secondary to lithium toxicity, however her mental status did not improve initially as her lithium levels normalized. MRI of the head on 08/10/18 [facility] showed no acute intracranial process with evidence of old lacunar infarct. Her mental status appears to be improving somewhat, however she did have some loose stools yesterday and a sample was sent for C-diff testing. Her stool studies came back positive for C-diff, she has been started on oral vancomycin. Her IV antibiotics have been discontinued as her treatment course should be adequate to cover her UTI. Today, she was oriented to self and time. She needed to be reminded that she was in the hospital, she was aware that she was in [facility]. She denies any other concerns. She actually reports that her diarrhea has slowed down significantly. She denies SMITH, shortness of breath, cough, wheezing, chest pain/pressure, palpitations, no abdominal pain, nausea, vomiting, or any other pain. She just feels tired. Exam Const General: cooperative, comfortable and no acute distress Orientation: oriented to person, oriented to time and other (tired but awakens easily and answers questions appropriately.) [facility] Head: normocephalic and atraumatic Mouth: moist mucous membranes Eyes Conjunctivae: conjunctivae normal (noninjected.) Sclera: sclerae normal (nonicteric.) Pupils: PERRL Neck Neck: supple and no JVD Resp Effort & Inspection: normal respiratory effort Auscultation: clear to auscultation bilaterally, no rales, no rhonchi and no wheezes Cardio Rate: regular rate and not tachycardic Rhythm: regular rhythm Heart Sounds: no gallops, no murmurs and no rubs Pulses: normal peripheral pulses GI Palpation: soft, no masses and nontender Auscultation: normal bowel sounds Skin General skin exam: other (venous stasis changes to bilateral ankles.) Extrem General: edema (trace pitting edema to BLEs. Pedal pulses palpable bilaterally.) Psych Other: Flat affect, depressed mood. Objective Objective Clinical Data: Abnormal lab results 08/11/18 08/12/18 08/12/18 Range/Units 10:00 06:53 06:53 RBC 3.65 L (4.00-5.20) m/cumm Hgb 10.9 L (12.0-15.5) g/dL MCV 100.5 H (80-95) fL MCHC 29.7 L (32.0-36.0) g/dL RDW 15.0 H (11.7-14.6) % Chloride 113 H (98-107) mmol/L Glucose 104 H (70-100) mg/dL Stl C.difficile Tox PCR Positive A Vital Signs Temperature 36.8 C 08/12/18 07:45 Temperature Source Tympanic 08/12/18 07:45 Pulse 71 08/12/18 07:45 Pulse Rhythm Regular 08/12/18 09:35 Pulse 77 08/04/18 20:16 Respiratory Rate 18 08/12/18 07:45 Respiratory Effort Non-Labored 08/12/18 09:35 Respiratory Depth Normal 08/12/18 09:35 Respiratory Pattern Normal 08/12/18 09:35 Blood Pressure 150/90 H 08/12/18 07:45 Blood Pressure Mean 121 08/04/18 20:16 Blood Pressure Position Supine 08/04/18 18:09 Pulse Oximetry 96 08/12/18 07:45 Oxygen Delivery Method Room Air 08/12/18 07:45 Oxygen Flow Rate 0 08/12/18 07:45 Pain Level 0 08/12/18 07:45 Comment 08/06/18 07:45 Intake & Output 08/11/18 08/12/18 08/12/18 23:59 11:59 23:59 Intake Total 530 / 530 Output Total 300 / 300 770 / 770 Balance 230 / 230 -770 / -770 Intake: IV 50 / 50 Oral 480 / 480 Output: Urine 300 / 300 770 / 770 Other: Urine Color Yellow Yellow Urine Appearance Clear Clear Urine Odor Normal Normal Stool Size Moderate Stool Characteristics Liquid Mucoid Voiding Methods Bedside Commode Bedside Commode Diaper Incontinent Laboratory Results WBC 6.99 k/cumm (4.4-10.8) 08/12/18 06:53 RBC 3.65 m/cumm (4.00-5.20) L 08/12/18 06:53 Hgb 10.9 g/dL (12.0-15.5) L 08/12/18 06:53 Hct 36.7 % (36.0-46.0) 08/12/18 06:53 MCV 100.5 fL (80-95) H 08/12/18 06:53 MCH 29.9 pg (27.0-33.0) 08/12/18 06:53 MCHC 29.7 g/dL (32.0-36.0) L 08/12/18 06:53 RDW 15.0 % (11.7-14.6) H 08/12/18 06:53 Plt Count 398 x1000/uL (130-400) 08/12/18 06:53 MPV 9.4 fL (8.0-11.0) 08/12/18 06:53 Immature Gran % See Differential 08/12/18 06:53 Neutrophils % 63.0 08/12/18 06:53 Lymphocytes % 18.0 08/12/18 06:53 Monocytes % 10.0 08/12/18 06:53 Eosinophils % 5.0 08/12/18 06:53 Basophils % 0.0 08/12/18 06:53 Absolute Neutrophils 4.40 k/cumm (1.2-6.7) 08/12/18 06:53 Band Neutrophils 2.0 % 08/11/18 06:45 Absolute Lymphocytes 1.40 k/cumm (1.2-3.4) 08/12/18 06:53 Absolute Monocytes 0.70 k/cumm (0.11-0.7) 08/12/18 06:53 Absolute Eosinophils 0.35 k/cumm (0.0-0.7) 08/12/18 06:53 Absolute Basophils 0.00 k/cumm (0.0-0.2) 08/12/18 06:53 Metamyelocytes 2.0 % 08/12/18 06:53 Myelocytes 2.0 % 08/11/18 06:45 Differential Comment Manual differential 08/12/18 06:53 Atypical Lymphocytes 2 08/12/18 06:53 RBC Morphology See below 08/12/18 06:53 Polychromasia Present 08/11/18 06:45 Hypochromasia 1+ 08/11/18 06:45 Poikilocytosis 1+ 08/12/18 06:53 PT 13.0 sec (9.3-10.8) H 08/04/18 17:45 INR 1.3 (1.0-3.5) 08/04/18 17:45 APTT 28.5 sec (21.0-31.4) 08/04/18 17:45 VBG pH 7.37 (7.32-7.43) 08/04/18 17:45 VBG pCO2 38 mm/Hg (34-47) 08/04/18 17:45 VBG pO2 50 mm/Hg (28-44) H 08/04/18 17:45 VBG HCO3 22 mmol/L (22-28) 08/04/18 17:45 VBG Total CO2 20 mmol/L (22-29) L 08/04/18 17:45 VBG O2 Saturation 85 % (70-80) H 08/04/18 17:45 VBG Base Excess -3.3 mmol/L (-3-3) L 08/04/18 17:45 Sodium 143 mmol/L (136-145) 08/12/18 06:53 Potassium 4.2 mmol/L (3.5-5.1) 08/12/18 06:53 Chloride 113 mmol/L (98-107) H 08/12/18 06:53 Carbon Dioxide 24.2 mmol/L (21.0-32.0) 08/12/18 06:53 Anion Gap 5.8 mmol/L (3-11) 08/12/18 06:53 BUN 8 mg/dL (7-18) 08/12/18 06:53 Creatinine 0.91 mg/dL (0.55-1.02) 08/12/18 06:53 Estimated GFR/1.73 m2 59.63 (mL/min/1.73m2) 08/12/18 06:53 Glucose 104 mg/dL (70-100) H 08/12/18 06:53 Calcium 9.2 mg/dL (8.5-10.1) 08/12/18 06:53 Magnesium 1.8 mg/dL (1.8-2.4) 08/12/18 06:53 Total Bilirubin 0.2 mg/dL (0.2-1.0) 08/07/18 06:40 Conjugated Bilirubin 0.09 mg/dL (0.00-0.20) 08/07/18 06:40 AST 19 U/L (15-37) 08/07/18 06:40 ALT 32 U/L (12-78) 08/07/18 06:40 Alkaline Phosphatase 187 U/L (46-116) H 08/07/18 06:40 Ammonia 26 umol/L (11-32) 08/04/18 17:45 Creatine Kinase 14 U/L (26-192) L 08/04/18 17:45 Troponin I 0.04 ng/mL (0.00-0.06) 08/04/18 17:45 Total Protein 6.2 g/dL (6.4-8.2) L 08/07/18 06:40 Albumin 1.6 g/dL (3.4-5.0) L 08/07/18 06:40 TSH 1.03 uIU/mL (0.358-3.74) 08/04/18 17:45 Urine Color Yellow (Yellow) 08/04/18 18:30 Urine Clarity Cloudy 08/04/18 18:30 Urine pH 6.0 (5-8) 08/04/18 18:30 Ur Specific [place] 1.020 (1.005-1.025) 08/04/18 18:30 Urine Protein 100 mg/dL (Negative) H 08/04/18 18:30 Urine Ketones 15 mg/dL (Negative) H 08/04/18 18:30 Urine Blood Moderate (Negative) H 08/04/18 18:30 Urine Nitrite Negative (Negative) 08/04/18 18:30 Urine Bilirubin Small (Negative) H 08/04/18 18:30 Urine Urobilinogen 1.0 EU/dL (Up TO 0.2) H 08/04/18 18:30 Ur Leukocyte Esterase Small (Negative) H 08/04/18 18:30 Urine RBC >50 (0-2) H 08/04/18 18:30 Urine WBC >50 HPF (0-5) 08/04/18 18:30 Ur Epithelial Cells Rare HPF (Negative) 08/04/18 18:30 Urine Crystals Negative HPF (Negative) 08/04/18 18:30 Urine Bacteria Moderate HPF (Negative) 08/04/18 18:30 Urine Casts Negative LPF (Negative) 08/04/18 18:30 Urine Mucus Moderate (Negative) 08/04/18 18:30 Urine Other Negative (Negative) 08/04/18 18:30 Ur Culture Indicated? Yes 08/04/18 18:30 Urine Glucose Negative mg/dL (Negative) 08/04/18 18:30 Stool Campylobacter PCR Cancelled 08/04/18 Unknown Stl C.difficile Tox PCR Positive A 08/11/18 10:00 Stool Salmonella PCR Cancelled 08/04/18 Unknown Stool Shigella PCR Cancelled 08/04/18 Unknown [place] 0.77 mmol/L (0.60-1.20) 08/12/18 06:53 C.difficile Tox Source Feces 08/11/18 10:00 Shiga Toxin (PCR) Cancelled 08/04/18 Unknown
--- NOTE | 2018-08-12 13:28 | PT.INNT ---
Date of service: 08/12/18 Time of Service: 13:29 PT Notes PHYSICAL THERAPY NOTE 08/12/18 Attempted to see for therapy session, pt sleeping in bed. Daughter in room stated there was a meeting planned at 1330 for planning. Will continue attempts. Janet Fatima PT
[2018-08-12] MEDS: Vancomycin 125 MG CAP PO ×2 (14:20→20:01)
--- NOTE | 2018-08-12 14:46 | DM INPTCON_ITS ---
DESCRIPTION/ASSESSMENT: Follow up review of glycemic outcomes for Luis Sharma who has been hospitalized for a week. Blood sugars have improved in the 100s yesterday and 90s today taking 20units Determir and sensitive insulin correction. Her usual Lantus dose at home is 50 units daily per med list. She is eating 25-75% of recorded meals. Attempted to visit her but was unable to engage in conversation. INTERVENTION: 78 year old with improved glycemic management possibly risking hypoglycemia with this reduced basal insulin dose and eating poorly. Unclear to me if she is able to communicate hypoglycemia symptoms. If blood sugars remain this low, it may be prudent to decrease her basal insulin dose to 18units Detemir daily. PLAN: Will follow blood sugars.
--- NOTE | 2018-08-12 15:03 | PT.INTREAT ---
Date of service: 08/12/18 Time of Service: 15:03 PT Notes Inpatient Physical Therapy Treatment Note Date: 08/12/18 PRECAUTIONS: Fall, Contact SUBJECTIVE: Luis states that she is not feeling any better, she is still very fatigued. OBJECTIVE: PAIN: No c/o pain BED MOBILITY/TRANSFERS Supine-sit: S with HOB 40 degrees Sit-supine: S with HOB flat Sit-stand: S Stand-sit: S GAIT Assistive Device: FWW Weight bearing: Full Assist: SBA Distance: 40' Deviation: Slow TOILETING:Patient toileted with Max A ASSESSMENT: Patient tolerated session with c/o increased fatigue. She would benefit from continued gait and transfer training, as well as strengthening. PLAN: Continue with PT's POC TREATMENT CODE/TIME: 30 minutes; TAx2
[2018-08-12 17:05] VITALS: BP 170/82; PULSE 65; RESP 19; TEMP 36.5; O2SAT 97
[2018-08-12 21:20] VITALS: BP 152/72; PULSE 87; RESP 17; TEMP 36.8; O2SAT 95
[2018-08-12] MEDS: traZODone 50 MG TAB PO (21:44)
[2018-08-13] MEDS: Vancomycin 125 MG CAP PO ×2 (01:46→08:50)
[2018-08-13 02:01] VITALS: BP 149/74; PULSE 69; RESP 18; TEMP 36.4; O2SAT 96
[2018-08-13] MEDS: Levothyroxine 100 MCG TAB PO (05:49)
[2018-08-13 07:04] LABS: Abs Immature Grans 0.15 k/cumm (0.0-0.09); Absolute Basophil Count 0.02 k/cumm (0.0-0.2); Absolute Eosinophil Count 0.26 k/cumm (0.0-0.7); Absolute Lymphocyte Count 1.25 k/cumm (1.2-3.4); Absolute Monocyte Count 0.61 k/cumm (0.11-0.7); Absolute Neutrophil Count 3.62 k/cumm (1.2-6.7); Basophils % 0.3; Eosinophils % 4.4; HCT 34.8 % (36.0-46.0); HGB 10.2 g/dL (12.0-15.5); Immature Grans % 2.5; Lymphocytes % 21.2; Mean Corp. HGB Concentration 29.3 g/dL (32.0-36.0); Mean Corpuscular Hemoglobin 29.5 pg (27.0-33.0); Mean Corpuscular Volume 100.6 fL (80-95); Mean Platelet Volume 9.1 fL (8.0-11.0); Monocytes % 10.3; Neutrophils % 61.3; Platelet Count 355 x1000/uL (130-400); RBC 3.46 m/cumm (4.00-5.20); RBC Distribution Width 15.1 % (11.7-14.6); White Blood Cell Count 5.91 k/cumm (4.4-10.8)
[2018-08-13 07:16] LABS: Anion Gap 8.1 mmol/L (3-11); BUN 7 mg/dL (7-18); CO2 22.9 mmol/L (21.0-32.0); CREATININE 0.84 mg/dL (0.55-1.02); Calcium 9.1 mg/dL (8.5-10.1); Chloride 111 mmol/L (98-107); Glucose 160 mg/dL (70-100); Magnesium 1.4 mg/dL (1.8-2.4); Potassium 4.1 mmol/L (3.5-5.1); Sodium 142 mmol/L (136-145)
[2018-08-13 07:40] VITALS: BP 155/74; PULSE 79; RESP 17; TEMP 36.2; O2SAT 95
[2018-08-13] MEDS: Lithium Carbonate 150 MG CAP PO (08:49)
[2018-08-13] MEDS: Normal Saline Flush 10 ML SYR IVP ×2 (08:50)
[2018-08-13] MEDS: Insulin Aspart 300 UNITS/3 ML PEN SC ×2 (08:50→12:28)
[2018-08-13] MEDS: Apixaban 5 MG TAB PO (08:50)
[2018-08-13] MEDS: MAGNESIUM SULFATE 2 GM/50 ML BAG IVPB (08:50)
--- NOTE | 2018-08-13 10:32 | PT.INNT ---
Date of service: 08/13/18 Time of Service: 09:30 PT Notes PHYSICAL THERAPY NOTE 08/13/18 Attempted to see patient for PT treatment, pt getting back to bed and refused stating she wanted to rest. Will continue attempts Janet Fatima PT
--- NOTE | 2018-08-13 12:20 | PDOC.CMDIS ---
- If Service Date Differs Date of service: 08/13/18 Time of Service: 12:20 LACE Index Scoring Tool - Questions: Length of Stay (in days): 7 - 13 Acuity (Admit via E.D.?): Yes Comorbidities: Diabetes w/o Complication E.D. Visits: 2 - Answers: Total Score: 11 Risk of Readmission: High Risk Care Management Discharge Reason for Hospitalization: UTI, Dehydration Discharge Plan: Luis will DC to [facility] in [place] today via private vehicle. LAI spoke with pola Clayton [facility], whom states that she would like Luis there by 1500 the absolute latest. LAI spoke with Luis's daughter Paulette to alert of acceptance, CM notified Paulette that family will need to transport. ALI spoke with NORBERT Dent, in regards to Luis's acceptance, as well as TIFFANY Smith,. LAI has notified Paulette that Luis will be discharged from [facility] at 1300 to be able to get to [facility] by 1400. SNF forms completed and placed on the front of the chart. LAI notified Usama, INJURY PREVENTION COORDINATOR [employer], of the above, as well as the fax number for [facility] Patient/Family Education Needs: Review DC instructions, any limitations, and discuss Ask Me Three Services Needed at Discharge: Group Home Facility ([facility])
--- NOTE | 2018-08-13 12:32 | DSE_ITS ---
Date of service: 08/13/18 Time of Service: 12:18 DS: Diagnosis Discharge Diagnosis (1) C. difficile colitis: Status: Acute (2) UTI (urinary tract infection): Status: Acute (3) Likely toxicity: Status: Acute (4) Toxic metabolic encephalopathy: Status: Acute (5) Bipolar 1 disorder: Status: Chronic (6) Diabetes type 2, uncontrolled: Status: Chronic (7) Paroxysmal atrial fibrillation: Status: Acute (8) Lung mass: Status: Acute (9) Discharge planning issues: Status: Acute (10) Delirium: Status: Acute (11) Cholelithiasis without obstruction: Status: Acute (12) Slow transit constipation: Status: Acute (13) Peripheral neuralgia: Status: Acute (14) Obesity: Status: Acute (15) New onset a-fib: Status: Acute (16) Malignant neoplasm of female breast: Status: Acute (17) Iatrogenic pulmonary embolism and infarction: Status: Acute (18) Hypothyroidism: Status: Acute (19) Hyperparathyroidism, unspecified: Status: Acute (20) Hyperlipidemia: Status: Acute (21) Diabetes mellitus: Status: Acute (22) Depressed bipolar I disorder: Status: Acute (23) Atherosclerosis of [place] coronary artery: Status: Acute (24) Complete edentulism, unspecified: Status: Acute (25) Amputated toe of right foot: Status: Acute (26) Amputated toe of left foot: Status: Acute (27) Bilateral pleural effusion: Status: Acute (28) Diarrhea: Status: Chronic (29) Hypertension: Status: Chronic (30) Insomnia: Status: Chronic (31) Edema, peripheral: Status: Chronic (32) Acute renal failure: Status: Acute (33) Hyperkalemia: Status: Acute (34) Urinary retention: Status: Acute (35) Intertrochanteric fracture of left femur: Status: Acute Discharge Plan Disposition Patient Disposition: SKILLED NSG. FAC.(LEVEL 1) Condition: Stable Discharge Details Reason For Visit: UTI, DEHYDRATION, WEAKNESS, DIARRHEA Admit Date/Time: 08/04/18 20:16 Admit Provider: Ricki Gann Attending Provider: Ricki Gann Primary Care Provider: Abhi Parks [facility] Hospital Course: Luis Smith is a 78 yo woman with obesity, PAF, HLD, DM, bipolar disorder treated with lithium, hypothyroidism, hyperparathyroidism who was admitted to the hospital from the ED on 08/05/18 after complaining of ongoing diarrhea and lethargy. In the ER was found to have UTI with pyuria. Likely levels were also noted to be elevated. Luis has also had altered mental status with the lethargy which was initially thought to be secondary to lithium toxicity, however her mental status did not improve initially as her lithium levels normalized. She went on to have an MRI of the head on 08/10/18 to further evaluate her altered mental status, which showed no acute intracranial process with evidence of old lacunar infarct. When she presented to the hospital, she reported diarrhea, however several days passed without diarrhea. Two days prior to discharge she had a loose stool which was collected and sent off for testing. Her C-Diff PCR was positive. She began treatment with oral Vanco on 08/12/18, she will need to complete a 10 day course. As of the time of discharge, she is not having watery stools, she had one formed stool early on the morning of discharge. She received a full course of treatment for her UTI with IV ceftriaxone. Her mental status has cleared. She remains sleepy, however, she was seen by neurology who note that it may take several weeks for her to return to her baseline mental status. Her lithium levels have remained normal for several days. She is on a reduced Likely dose. She should have follow up with her psychiatric provider as well as a follow up Likely level next week. Her Magnesium level was noted to be low on the day of discharge, she received IV Magnesium supplementation. Her blood sugars have been in an acceptable range, she will need to remain on an ADA diet and have blood sugar monitoring. Of note, She had a recent Chest CT on 07/29/18 which revealed bilateral pulmonary nodules as well as an anterior mediastinal mass. She will need close follow up with Pulmonology. It was determined that she was not safe to return home alone at this point and referrals were sent to retirement facilities. She has been accepted at [facility] and will transfer to the facility upon discharge from the hospital. Home Meds and New Rx's Prescriptions: New insulin aspart U-100 [Novolog Flexpen U-100 Insulin] 100 unit/mL Insulin Pen 1 unit subcut 0800,1200,1700 Qty: 0 RF: 0 vancomycin 125 mg Capsule 125 mg PO Q6H Qty: 0 RF: 0 insulin detemir U-100 [Levemir FlexTouch U-100 Insuln] 100 unit/mL (3 mL) Insulin Pen 20 units subcut HS Qty: 0 RF: 0 Continue acetaminophen 650 MG tablet 1 tab PO Q6H PRN RF: 0 pen needle, diabetic [BD Ultra-Fine Tiffany Pen Needle] 1 EACH needle 1 ea Miscellaneous DAILY Qty: 100 RF: 4 lancets [OneTouch Delica Lancets] 1 EACH misc 1 ea Miscellaneous QID Qty: 100 RF: 5 blood sugar diagnostic [OneTouch Ultra Test] 1 EACH strip 1 ea Miscellaneous QID Qty: 200 RF: 5 apixaban [Eliquis] 5 MG tablet 5 mg PO BID Qty: 60 RF: 11 cinacalcet [Sensipar] 30 MG tablet 30 mg PO DAILY Qty: 90 RF: 4 insulin glargine [Lantus U-100 Insulin] 100 UNIT/1 ML solution 50 units Sub-Q DAILY Qty: 3 RF: 4 polyethylene glycol 3350(bulk) 12,000 GM powder 17 gm PO DAILY PRNQty: 1200 RF: 3 levothyroxine 100 MCG tablet 100 mcg PO DAILY Qty: 90 RF: 3 insulin syringe-needle U-100 [BD Insulin Syringe] 1 EACH syringe 1 ea Miscellaneous TID Qty: 100 RF: 4 Changed trazodone 50 mg tablet 50 mg PO HS Qty: 0 RF: 0 lithium carbonate 150 MG capsule 150 mg PO DAILY Qty: 180 RF: 3 mirtazapine 30 MG tablet 30 mg PO HS Qty: 90 RF: 4 Discharge Instructions Instructions: Clostridium Difficile Infection (DC) Stand Alone Forms: Nursing Discharge Form Referrals: Abhi Parks MD [Primary Care Provider] - Activity:: Activity as Tolerated Equipment/Supplies:: No Equipment Needed Diet:: Carb Counting Discharge Orders Discharge Orders: Discharge Order (Routine); Ordered 08/13/18 Ordered By: Jailene Castillo Exam Narrative Exam Narrative: At the time of discharge she is sleep but easily awakens to verbal stimuli. She is oriented to self and time, she is easily reoriented to place. She is resting in bed. She is pleasant and cooperative, answers questions appropriately. Her heart sounds irregularly irregular, not tachycardic, no murmur. Her lungs sound diminished, respirations are even and unlabored. Abdomen is soft, nondistended, nontender on palpation, normoactive bowel sounds. She has some edema noted just distal to and proximal to left elbow. She also has trace to +1 pitting edema to BLEs. BLEs have venous stasis changes to skin. She has only 3 remaining toes on each foot. peripheral pulses are palpable. DS: Data Vitals/I&O Vitals and I&O: Vital Signs Temperature 36.2 C L 08/13/18 07:40 Temperature Source Tympanic 08/13/18 07:40 Pulse 79 08/13/18 07:40 Pulse Rhythm Regular 08/13/18 08:25 Pulse 77 08/04/18 20:16 Respiratory Rate 17 08/13/18 07:40 Respiratory Effort Non-Labored 08/13/18 08:25 Respiratory Depth Normal 08/13/18 08:25 Respiratory Pattern Normal 08/13/18 08:25 Blood Pressure 155/74 H 08/13/18 07:40 Blood Pressure Mean 121 08/04/18 20:16 Blood Pressure Position Supine 08/04/18 18:09 Pulse Oximetry 95 08/13/18 07:40 Oxygen Delivery Method Room Air 08/13/18 07:40 Oxygen Flow Rate 0 08/13/18 07:40 Pain Level 0 08/13/18 07:40 Comment 08/06/18 07:45 Intake & Output 08/12/18 08/13/18 08/13/18 23:59 11:59 23:59 Intake Total 190 / 190 300 / 300 Output Total 800 / 800 Balance -610 / -610 300 / 300 Intake: IV Oral 180 / 180 300 / 300 Output: Urine 800 / 800 Other: Urine Color Yellow Urine Appearance Clear Comment pt dry at this time. void x 1 Stool Size Smear Small Stool Characteristics Liquid Soft Brown Voiding Methods Bedside Commode Bedside Commode Diaper Incontinent Completed studies during hospitalization [Text1]: 07/29/18: CHEST CT: A noncontrast CT scan of the chest was performed. Comparison is made with 04/15. The thoracic aorta shows atherosclerosis. No aneurysmal dilatation is present. Heart size is within normal limits. There does appear to be a trace pericardial effusion. Coronary artery calcifications are present. No significant adenopathy is seen in the mediastinum. There is a soft tissue mass in the anterior mediastinum measuring 4 cm. transverse by 2.8 cm. AP by 4.8 cm. craniocaudad. There is a right pleural effusion. There are areas of loculation along the [place] of the right hemithorax. These appear to be of low attenuation suggesting fluid and may represent loculated collections. Several of these areas however do show somewhat increased density suggesting a soft tissue component and pleural based masses cannot be excluded. There is no left pleural effusion. No pneumothorax is identified. There are bilateral non-calcified pulmonary nodules present in both lobes, the largest measures approximately 5 mm. The tracheobronchial tree is unremarkable. The upper abdominal images show the patient is status post cholecystectomy. Moderate degenerative changes are seen throughout the spine. IMPRESSION: 1. Noncontrast CT scan of the chest which does limit evaluation. 2. Pleural based collections in the right hemithorax. They appear to have both solid and fluid attenuations and pleural based masses cannot be excluded. A CT scan with contrast should be considered for further evaluation. 3. Bilateral pulmonary nodules. Follow up should be considered based on patient's risk factors. 4. Anterior mediastinal mass. Post contrast CT scan of the chest is recommended. 08/04/18: CHEST X-RAY, FRONTAL AND LATERAL VIEWS: Comparison is 07/28/18. The heart size is stable and within normal limits. There is atherosclerosis of the thoracic aorta. There is blunting of the costophrenic angles bilaterally consistent with small pleural effusions. There are again seen opacities in the right hemithorax, one in the right suprahilar region and one in the right lung base. Previous CT scan showed loculated pleural effusions versus pleural masses in these regions. The left lung appears seen. Degenerative changes are seen in the spine. Surgical clips are seen in the left axilla. IMPRESSION: Bilateral pleural effusions with loculated pleural effusions versus masses in the right hemithorax. These were present on the CT scan from 07/28/18 and are grossly unchanged in size. Continued followup is recommended. CT BRAIN: Noncontrast examination was performed. Comparison is 07/17/14. The study is degraded due to patient motion artifact. There is cerebral atrophy and small vessel ischemic disease consistent with the patient's age. No evidence of acute infarct, hemorrhage, midline shift or mass effect is identified. The ventricles are intact. The basilar cisterns are patent. The visualized paranasal sinuses are clear. The mastoid air cells are well pneumatized. The calvarium is intact. IMPRESSION: 1. Image degradation due to patient motion artifact. 2. No definite acute intracranial process. PORTABLE AP CHEST: Comparison is made with 07/28/18. There is an apparent interval decrease in size of the previously noted right pleural effusion versus differences in technique. The lungs are not well inflated. Right sided posterior pleural masses are again noted. Left sided axillary clips are seen. The heart size is within normal limits. IMPRESSION: Question of an interval decrease in size of the right pleural effusion versus differences in technique. PORTABLE AP CHEST: Comparison is made with 08/06/18. There has been no significant change in the bilateral pleural effusions, left greater than right. The lungs are again expiratory. No new abnormalities are seen. BRAIN MRI: MRI examination of the brain was performed according to the usual protocol. The examination is somewhat limited due to patient motion. There is increased signal in right mastoid air cells inferiorly raising the possibility of a serous mastoiditis. The orbital structures appear intact and otherwise the temporal bone structures are unremarkable. There is normal flow void in the [place] vasculature. Pituitary is unremarkable. There is moderate generalized cerebral atrophy. There are scattered areas of abnormal signal in periventricular white matter and in the basal ganglia, particularly on the right. Probable small right lacunar infarcts are noted. Diffusion weighted imaging is within normal limits. Susceptibility weighted imaging shows no evidence of intracranial hemorrhage. There is a possible small left occipital infarct, no diffusion abnormality in this area. CONCLUSION: No evidence of acute intracranial process. Labs on day of discharge: Labs from last 24 hours 08/13/18 08/13/18 08/13/18 06:35 06:35 06:35 WBC 5.91 RBC 3.46 L Hgb 10.2 L Hct 34.8 L MCV 100.6 H MCH 29.5 MCHC 29.3 L RDW 15.1 H Plt Count 355 MPV 9.1 Immature Gran % 2.5 Neutrophils % 61.3 Lymphocytes % 21.2 Monocytes % 10.3 Eosinophils % 4.4 Basophils % 0.3 Absolute Neutrophils 3.62 Absolute Lymphocytes 1.25 Absolute Monocytes 0.61 Absolute Eosinophils 0.26 Absolute Basophils 0.02 Sodium 142 Potassium 4.1 Chloride 111 H Carbon Dioxide 22.9 Anion Gap 8.1 BUN 7 Creatinine 0.84 Estimated GFR/1.73 m2 >= 60.00 Glucose 160 H Calcium 9.1 Magnesium 1.4 L Likely Pending
--- NOTE | 2018-08-13 12:51 | CMDISCH_ITS ---
- If Service Date Differs Date of service: 08/13/18 Time of Service: 12:20 LACE Index Scoring Tool - Questions: Length of Stay (in days): 7 - 13 Acuity (Admit via E.D.?): Yes Comorbidities: Diabetes w/o Complication E.D. Visits: 2 - Answers: Total Score: 11 Risk of Readmission: High Risk Care Management Discharge Reason for Hospitalization: UTI, Dehydration Discharge Plan: Luis will DC to [facility] in [place] today via private vehicle. LAI spoke with pola Clayton [facility], whom states that she would like Luis there by 1500 the absolute latest. LAI spoke with Luis's daughter Paulette to alert of acceptance, CM notified Paulette that family will need to transport. LAI spoke with NORBERT Dent, in regards to Luis's acceptance, as well as TIFFANY Smith,. LAI has notified Paulette that Luis will be discharged from [facility] at 1300 to be able to get to [facility] by 1400. SNF forms completed and placed on the front of the chart. LAI notified Usama, [employer], of the above, as well as the fax number for [facility] Patient/Family Education Needs: Review DC instructions, any limitations, and discuss Ask Me Three Services Needed at Discharge: Custodial Facility ([facility])
--- NOTE | 2018-08-13 12:52 | PT.INDS ---
Date of service: 08/13/18 Time of Service: 12:52 PT Notes Inpatient Physical Therapy Discharge Summary Date: 08/13/18 Dates of Service: 08/05/18-08/12/18 PRECAUTIONS: Fall precautions SUBJECTIVE: NT OBJECTIVE: 08/05/18-08/12/18 BED MOBILITY/TRANSFERS Rolling L/R: independent Supine-sit: supervision Sit-supine: supervision Sit-stand: supervision with FWW Stand-sit: supervision GAIT Assistive Device: FWW Assist: SBA Distance: 40ft-80ft Balance: Static Sitting: normal Dynamic Sitting: normal Static Standing: fair Dynamic Standing:fair Assessment: Pt is a 72yr old female admitted with urinary tract infection, dehydration in setting of diabetes mellitus type II, diabetic ulcer left foot, amputation bilateral feet toes, Bipolar disorder 1, left femur fracture s/p nailing 08/30/15, peripheral edema, neurogenic bladder, urinary retention, lobectomy. Patient has made slow progress this week with strengthening and mobility training, limited by fatigue, weakness and some confusion. Pt progressed in bed transfers from SBA to supervision, and in gait from CGA with FWW 4 steps to SBA with FWW 40-80ft. Pt is being discharged to [facility] facility recommend continued PT Goals: Goals X1 week 1. Supine-Sit : independent 2. Sit-Supine : independent 3. Sit-Stand : SBA with FWW 4. Stand-Sit : SBA 5. Bed-Chair :SBA with FWW 6. Chair-Bed : SBA with FWW 7. Gait: SBA with FWW 50ftx2 Pt met goals #1, 3, 4 continue PT toward remaining goals DISCHARGE RECOMMENDATIONS: senior living care facility for rehab Janet Fatima PT
--- NOTE | 2018-08-13 12:55 | INDS_ITS ---
Date of service: 08/13/18 Time of Service: 12:52 PT Notes Inpatient Physical Therapy Discharge Summary Date: 08/13/18 Dates of Service: 08/05/18-08/12/18 PRECAUTIONS: Fall precautions SUBJECTIVE: NT OBJECTIVE: 08/05/18-08/12/18 BED MOBILITY/TRANSFERS Rolling L/R: independent Supine-sit: supervision Sit-supine: supervision Sit-stand: supervision with FWW Stand-sit: supervision GAIT Assistive Device: FWW Assist: SBA Distance: 40ft-80ft Balance: Static Sitting: normal Dynamic Sitting: normal Static Standing: fair Dynamic Standing:fair Assessment: Pt is a 72yr old female admitted with urinary tract infection, dehydration in setting of diabetes mellitus type II, diabetic ulcer left foot, amputation bilateral feet toes, Bipolar disorder 1, left femur fracture s/p nailing 08/30/15, peripheral edema, neurogenic bladder, urinary retention, lobectomy. Patient has made slow progress this week with strengthening and mobility training, limited by fatigue, weakness and some confusion. Pt progressed in bed transfers from SBA to supervision, and in gait from CGA with FWW 4 steps to SBA with FWW 40-80ft. Pt is being discharged to tour coordinator care facility recommend continued PT Goals: Goals X1 week 1. Supine-Sit : independent 2. Sit-Supine : independent 3. Sit-Stand : SBA with FWW 4. Stand-Sit : SBA 5. Bed-Chair :SBA with FWW 6. Chair-Bed : SBA with FWW 7. Gait: SBA with FWW 50ftx2 Pt met goals #1, 3, 4 continue PT toward remaining goals DISCHARGE RECOMMENDATIONS: [facility] care facility for rehab Janet Fatima PT
[2018-08-13 13:38] LABS: Lithium 0.69 mmol/L (0.60-1.20)
== END 2018-08-13 13:58 | disposition skilled nursing facility (03) | DRG 689 ==
LOC: ER 20:42 → MS 08-05 13:09
PROVIDERS: Internal Medicine; Nurse Practitioner; Admitting Provider General Practice; Emergency Provider Student in an Organized Health Care Education/Training Program; PCP Family Medicine; Visit Provider Internal Medicine
DX: N39.0 Urinary tract infection, site not specified (principal); G92 Toxic encephalopathy; A04.72 Enterocolitis due to Clostridium difficile, not specified as recurrent; J90 Pleural effusion, not elsewhere classified; T43.595A Adverse effect of other antipsychotics and neuroleptics, initial encounter; B96.1 Klebsiella pneumoniae [K. pneumoniae] as the cause of diseases classified elsewhere; Z16.11 Resistance to penicillins; F31.9 Bipolar disorder, unspecified; E11.65 Type 2 diabetes mellitus with hyperglycemia; Z79.4 Long term (current) use of insulin; E83.42 Hypomagnesemia; I48.0 Paroxysmal atrial fibrillation; E86.0 Dehydration; R91.8 Other nonspecific abnormal finding of lung field; E11.42 Type 2 diabetes mellitus with diabetic polyneuropathy; M77.42 Metatarsalgia, left foot; M77.41 Metatarsalgia, right foot; E11.51 Type 2 diabetes mellitus with diabetic peripheral angiopathy without gangrene; B35.1 Tinea unguium; L60.2 Onychogryphosis; E66.9 Obesity, unspecified; E03.9 Hypothyroidism, unspecified; E78.5 Hyperlipidemia, unspecified; Z79.01 Long term (current) use of anticoagulants; E21.3 Hyperparathyroidism, unspecified; L84 Corns and callosities; Z89.412 Acquired absence of left great toe; Z89.422 Acquired absence of other left toe(s); Z89.421 Acquired absence of other right toe(s); Z66 Do not resuscitate
CPT/HCPCS: 36415; 80048; 80053; 80076; 82550; 82805; 85027; 87077; 87505; 93005; 96361; 96365; 97110; 97163; 97530; 99222; 99223; 99232; 99233; 99239; 99255; 99285; 70450; 70551; 71045; 71046; 80178; 81003; 81015; 82140; 83735; 84443; 84484; 85025; 85610; 85730; 87086; 87186; 87324; 87798; 93010; J0696; J3490

== ENCOUNTER → 2018-08-12 09:30 | Outpatient (BNVA) | payer OTHER, MEDICAID, SELFPAY | PROVIDERS: PCP Family Medicine; Visit Provider Psychiatry & Neurology Neurology | DX: R69 Illness, unspecified (principal) ==